=== PATIENT | female | born 1950 | race Caucasian/White ===

== ENCOUNTER 2016-04-08 06:51 | Inpatient (IN) | payer OTHER ==
--- NOTE | 2016-03-31 18:40 | HP ---
HISTORY AND PHYSICAL: DATE OF ADMISSION/SURGERY: 04/08/16 DATE OF OFFICE VISIT: 03/31/16 SURGEON: Myriam Munoz MD PROCEDURE: Left total knee arthroplasty. CHIEF COMPLAINT: Left knee pain. HISTORY OF PRESENT ILLNESS: Ms. Siegel is a 65-year-old female with complaints of left knee pain secondary to advanced osteoarthritis. She has failed conservative management and has elected to proceed with a left total knee arthroplasty, which is scheduled for 04/08/16. PAST MEDICAL HISTORY: Hypertension, asthma, osteoarthritis, and seasonal allergies. PAST SURGICAL HISTORY: Tonsillectomy. CURRENT MEDICATIONS: 1. Lunesta. 2. Singulair. 3. Chlorthalidone. 4. Advair Diskus. 5. Fish oil. 6. Magnesium. 7. Potassium. 8. Zypan. 9. Cataplex F. 10. Cardio-Plus. 11. Gotu qing. 12. Multizyme. 13. Cataplex B. ALLERGIES: To SOY BEANS, ERYTHROMYCIN, and FLUOROQUINOLONES. FAMILY HISTORY: Lung cancer, heart disease, Alzheimer's, alcoholism. SOCIAL HISTORY: She is a 65-year-old female. She lives with her sister. 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 She does not smoke; however, she quit smoking 25 years ago. She denies any drugs or alcohol. REVIEW OF SYSTEMS: A complete 14-point review of systems was reviewed with the patient and was all negative or noncontributory. PHYSICAL EXAMINATION GENERAL: She is well-developed, obese female. She is in no acute distress. VITAL SIGNS: She stands 5 feet 3 inches tall, weighs 195 pounds. Her blood pressure is 163/90, her heart rate is 73. HEENT: She is normocephalic, atraumatic. NECK: Supple. No palpable lymph nodes. Trachea is midline. PULMONARY: The lungs are clear to auscultation bilaterally. No wheezes, rhonchi, or rales. CARDIO: Regular rate and rhythm. Strong S1, S2. No murmurs, gallops, or rubs. No peripheral edema. ABDOMEN: Soft, nontender, nondistended. NEUROLOGICAL: She is alert and oriented x3. Cranial nerves II through XII are intact. MUSCULOSKELETAL: Left lower extremity: The skin is intact. She has a moderate effusion. Tenderness over the medial and lateral joint line. She walks with a slightly antalgic-type gait favoring her left leg. She has full range of motion, intact sensation. Her lower extremity muscle group strengths are intact at 5/5. She has 2+ dorsalis pedis pulses. ASSESSMENT AND PLAN: Ms. Siegel is a 65-year-old female who has failed conservative management. She has advanced osteoarthritis of her left knee and has elected to proceed with a left total knee arthroplasty. The surgery is scheduled for 04/08/[address] Munoz discussed the risks and benefits of the surgery at today's visit and all of her questions were answered. Coumadin, Colace, and Percocet were sent to her pharmacy for postoperative pain control and DVT prophylaxis. She will see Dr. Munoz back 10 to 14 days after the surgery. JORGE CORTES [id number]/[facility] #: [id number] [place]
[~2016-04-08 06:51] MED LIST: Buffered Lidocaine 1% SYRIN* 3 ML/SYR SYRINGE INTRADERM ONE; Dexamethasone IV* 4 MG/ML 1 ML (4 MG) IV SLOW PU ONE; Famotidine IV* 10 MG/ML 2 ML (20 mg) IV ONE
[2016-04-08] MEDS ORDERED: Lidocaine 2% EPI 1:200000 MPF* 20 ML VIAL ONE ×3 (07:18→14:57)
[2016-04-08 08:05] LABS: Hematocrit 46 % (35-47); Hemoglobin 15.5 g/dl (12.0-16.0); Mean Corpuscular HGB Conc 34 g/dl (31-36); Mean Corpuscular Hemoglobin 29 pg (27-31); Mean Corpuscular Volume 87 fL (80-97); Mean Platelet Volume 9 um3 (7.4-10.4); Red Blood Count 5.29 10^6/ul (4.0-5.4); Red Cell Distribution Width 14 % (10.5-15); White Blood Count 7.3 10^3/ul (3.5-10.8)
[2016-04-08] MEDS ORDERED: Bupivacaine 0.5% SDV PF* 30 ML VIAL ONE (09:09)
[2016-04-08] MEDS ORDERED: fentaNYL* 50 MCG/ML 2 ML VIAL (100 MCG VIAL) ONE (09:10)
[2016-04-08] MEDS ORDERED: Midazolam* 1 MG/ML 5 ML VIAL (5 MG) ONE (09:10)
[2016-04-08] MEDS ORDERED: Propofol* 500 MG/50 ML BTL ONE (09:11)
[2016-04-08] MEDS ORDERED: Lidocaine 2% PF * 5 ML VIAL ONE (09:11)
[2016-04-08] MEDS ORDERED: Morphine PF AMP (0.5MG/ML)* 5 MG/10 ML AMP ONE (09:12)
[2016-04-08] MEDS ORDERED: Midazolam* 1 MG/ML 2 ML VIAL (2 MG) ONE (10:11)
[2016-04-08] MEDS ORDERED: fentaNYL* 50 MCG/ML 2 ML VIAL (100 MCG VIAL) IV PRN (10:44)
[2016-04-08] MEDS ORDERED: oxyCODONE TAB* 5 MG TAB PO PRN ×2 (10:44→10:45)
[2016-04-08] MEDS ORDERED: Acetaminophen IV 1GM/100ML * 100 ML IVPB ONE (10:44)
[2016-04-08] MEDS ORDERED: PROCHLORPERAZINE INJ 5 MG/ML 2 ML VIAL IV PRN (10:44)
[2016-04-08] MEDS ORDERED: EPHEDrine (Pressors)* 50 MG/ML VIAL IV PUSH PRN (10:45)
[2016-04-08] MEDS ORDERED: Ondansetron INJ* 2 MG/ML VIAL IV PRN ×2 (10:45→11:36)
[2016-04-08] MEDS ORDERED: Naloxone* 0.4 MG/ML 1 ML VIAL IV PRN ×3 (10:45→10:53)
[2016-04-08] MEDS ORDERED: Lactated Ringers 500 ml BAG* 500 ML IV PRN (10:45)
[2016-04-08] MEDS ORDERED: Nalbuphine* 20 MG/ML 1 ML VIAL IV PRN (10:45)
[2016-04-08] MEDS ORDERED: Scopolamine 1.5 mg* PATCH TRANSDERM SCH (11:00)
[2016-04-08] MEDS ORDERED: Ropivacaine 0.2% EPIDURAL* 200 MG/100 ML BAG EPIDURAL SCH (11:00)
[2016-04-08] MEDS ORDERED: Ondansetron TAB* 4 MG PO PRN (11:36)
[2016-04-08] MEDS ORDERED: Polyethylene Glycol 3350* 17 GM PACKET PO PRN (11:36)
[2016-04-08] MEDS ORDERED: LACTULOSE* 30 ML UDC PO PRN (11:36)
[2016-04-08] MEDS ORDERED: Bisacodyl SUPP* 10 MG SUPP PR PRN (11:36)
[2016-04-08] MEDS ORDERED: diPHENhydraMINE IV* 50 MG/ML 1 ml VIAL (BENADRYL) IV PRN (11:36)
[2016-04-08] MEDS ORDERED: Albuterol HFA INHALER* 8 gm MDI INH PRN (11:41)
[2016-04-08] MEDS ORDERED: Zolpidem TAB* 10 MG PO PRN (11:41)
[2016-04-08] MEDS ORDERED: Ropivacaine 0.2% EPIDURAL* 200 MG/100 ML BAG EPIDURAL ONE (11:53)
[2016-04-08] MEDS ORDERED: Acetaminophen IV 1GM/100ML * 100 ML ONE (11:54)
[2016-04-08] MEDS ORDERED: Nalbuphine* 20 MG/ML 1 ML VIAL ONE (12:48)
[2016-04-08] MEDS ORDERED: Scopolamine 1.5 mg* PATCH ONE (12:52)
--- NOTE | 2016-04-08 12:57 | RAD ---
HISTORY: Status post left knee arthroplasty COMPARISONS: April 16, 2015 VIEWS: 2, Frontal and lateral views of the left knee FINDINGS: BONE DENSITY: Normal. BONES: The patient is status post left knee arthroplasty. There is no hardware failure or osteolysis. JOINTS: The patient is status post left knee arthroplasty ALIGNMENT: There is no dislocation. SOFT TISSUES: There is post surgical change to the soft tissues OTHER FINDINGS: None. IMPRESSION: STATUS POST LEFT KNEE ARTHROPLASTY
[2016-04-08] MEDS ORDERED: Ondansetron INJ* 2 MG/ML VIAL ONE (14:07)
[2016-04-08] MEDS ORDERED: celeCOXIB CAP* 100 MG ONE (15:37)
[2016-04-08] MEDS: ZYPAN PO SCH ×2 (16:07→17:08)
[2016-04-08] MEDS ORDERED: Warfarin TAB(*) 6 MG PO ONE (17:00)
[2016-04-08] MEDS ORDERED: Scopolamine 1.5 mg* PATCH TRANSDERM ONE (17:00)
[2016-04-08] MEDS: Montelukast Sodium TAB* 10 MG PO SCH (17:51)
[2016-04-08] MEDS: ceFAZolin 1 GM in Dextrose (*) 1 GM/50 ML BAG IVPB SCH (17:51)
[2016-04-08] MEDS: Acetaminophen TAB* 325 MG PO SCH (21:41)
[2016-04-08] MEDS: Magnesium Hydroxide LIQ* 30 ML UDC PO SCH (22:34)
[2016-04-08] MEDS: Mometasone/Formoter 200/5 MDI INH SCH (22:34)
[2016-04-08] MEDS: Docusate CAP* 100 MG PO SCH (22:34)
[2016-04-09] MEDS ORDERED: oxyCODONE/Acetamin 5/325 MG* TAB PO PRN (02:00)
[2016-04-09] MEDS: oxyCODONE/Acetamin 5/325 MG* TAB PO PRN ×5 (02:18→21:19)
[2016-04-09] MEDS: ceFAZolin 1 GM in Dextrose (*) 1 GM/50 ML BAG IVPB SCH ×2 (02:21→09:26)
--- NOTE | 2016-04-09 04:23 | OP ---
DATE OF OPERATION: 04/08/16 - ROOM #339 DATE OF : 54 SURGEON: Myriam Munoz MD SHUTTLE FIXER: JORGE Arboleda ANESTHESIOLOGIST: Dr. Henson. ANESTHESIA: Spinal epidural. PRE-OP DIAGNOSIS: Severe end-stage degenerative osteoarthritis of the left knee joint. POST-OP DIAGNOSIS: Severe end-stage degenerative osteoarthritis of the left knee joint. OPERATIVE PROCEDURE: Left total knee arthroplasty. INDICATIONS: Ms. Siegel is a 65-year-old female with years of increasingly severe left knee pain. She failed conservative treatment with the anti- inflammatories, pain medications, physical therapy, brace wear, and intra- articular injections. Her radiographs confirmed [id number] arthritis. Due to decreased quality of life and continued pain, the patient elected to undergo left total knee arthroplasty. Informed consent was obtained from the patient. She understood the risks of the procedure included, but were not limited to, bleeding, infection, damage to nearby structures, continued pain, need for further surgery, intraoperative fracture, nerve palsy, hardware failure or loosening, stroke, heart attack, blood clot, and . She wished to proceed. TOURNIQUET TIME: 55 minutes. EBL: 200 cc. COMPLICATIONS: None. SPECIMEN: Bone and cartilage from the left knee joint sent to Pathology. HARDWARE USED: This is Devlin [employer] Nephew cemented total knee arthroplasty hardware with 2 packages of Simplex bone cement. For the femur, a size 3 left Oxinium femoral component. For the tibia, size 2 left tibial baseplate. For the insert, a 13-mm posterior stabilized articular insert and for the patella, a 32-mm All-Poly patella. INTRAOPERATIVE FINDINGS: Intraoperatively, the patient was noted to have complete loss of cartilage in the medial and patellofemoral compartments with severe osteophyte formation. DESCRIPTION OF PROCEDURE: Ms. Siegel was identified in the preanesthesia unit. Her left lower extremity was marked as the correct operative side. Informed consent was signed and placed in the chart. The patient was taken to the operating room and placed under spinal epidural anesthesia. Tourniquet was placed on the left thigh. A Quick catheter was placed. The left lower extremity was prepped and draped in the usual sterile fashion. Preop time-out was made to correctly identify the patient's side and site. Appropriate perioperative antibiotics were given within 1 hour of incision. Tourniquet was inflated and a total tourniquet time for this procedure was 55 minutes. A 12-cm midline incision was made with a 10-blade and carried down through the subcutaneous fat to the extensor mechanism. A new 10-blade was used to make a standard medial parapatellar arthrotomy. The patella was subluxed laterally. Electrocautery was used to subperiosteally elevate the soft tissue off the superomedial tibia to the mid sagittal plane. The knee was flexed up. A drill was used to enter the distal femur. Intramedullary distal femoral cutting guide was pinned into proper position. A 9- mm of distal femoral bone was carefully removed with an oscillating saw. The external rotation guide was placed on the distal femur. Distal femur was sized to a size 3. A size 3 multi-cutting jig was then pinned into position on the distal femur. The oscillating saw was used to make the appropriate chamfer cuts. All bony fragments were carefully removed. The PCL was completely released. The tibia was subluxed anteriorly. Extramedullary tibial cutting guide was pinned on to proximal tibia. Oscillating saw was used to make the proximal tibial cut perpendicular to the mechanical axis of the tibia. The tibial bone was carefully removed. The knee was brought out into full extension. Spacer block had excellent fit with good medial and lateral ligamentous balancing. Flexion and extension gaps were well balanced. The knee was flexed up. Lamina gas station operator was placed both medially and laterally. Any remaining meniscus was carefully removed using electrocautery both medially and laterally. Any posterior osteophytes were removed using a curved osteotome. A size 3 left femoral trial was impacted on to the distal femur. This had excellent fit. The box for the posterior stabilized implant was prepared using a reamer and box cut osteotome. A size 2 tibial tray trial and 11-mm insert trial was chosen. The knee was taken through a range of motion and noted to have full extension to 130 degrees of flexion with good patellofemoral tracking. The patella was everted. There was extensive osteophyte formation along the patella. 9 mm of patellar bone and cartilage was carefully removed using an oscillating saw. The patella was sized to a size 32. Three peg holes were drilled through the size 32 guide. A trial 32 patella was placed and the knee was taken through range of motion. There was good patellofemoral tracking. All trials were carefully removed. The tibia was subluxed anteriorly and sized to a size 2. Proximal tibia was prepared using a keel punch. All bony cut surfaces were copiously irrigated with sterile saline and dried. The final implants were cemented into place starting with the tibia, followed by the femur , and lastly the patella. A 13-mm insert trial was placed while the knee was brought out into full extension. Tourniquet was deflated. Cement was allowed to fully cure. The knee was copiously irrigated with sterile saline. Once the cement was fully cured, the insert trial was removed. An electrocautery was used to obtain meticulous hemostasis. Any excess cement was carefully removed. Final insert chosen was a 13-mm posterior stabilized articular insert. This was locked into position on the tibial tray. Stability of the insert was checked and rechecked and noted to be stable. The knee was copiously irrigated with sterile saline. The extensor mechanism was closed using interrupted #1 Vicryls. The rest of the incision was closed in a layered fashion using 0 and 2-0 Vicryl's. Skin was closed using running 3- 0 nylon suture. Sterile Xeroform, 4x4's, and Webril were used to cover the incision. Rob wrap and cold pack were placed over this. The patient's anesthesia was reversed without difficulty. She was taken to the PACU in stable condition. Intended weightbearing will be weightbearing as tolerated. Intended DVT prophylaxis will be Coumadin with a Lovenox bridge. [id number]/[facility] #: [id number] [place]
[2016-04-09] MEDS: Acetaminophen TAB* 325 MG PO SCH ×2 (04:53→13:55)
[2016-04-09] MEDS ORDERED: NS 0.9% 1000 ML* 1,000 ML IV ONE (06:45)
[2016-04-09 07:12] LABS: Hematocrit 36 % (35-47); Hemoglobin 12.1 g/dl (12.0-16.0)
[2016-04-09 07:30] LABS: BUN/Creatinine Ratio 12.5 (8-20); Calcium 8.5 mg/dL (8.6-10.3); EGFR African American 120.5 (>60); EGFR Non-African American 93.7 (>60); Potassium 2.9 mmol/L (3.5-5.0)
[2016-04-09] MEDS: ZYPAN PO SCH ×3 (08:00→16:32)
[2016-04-09] MEDS ORDERED: Potassium Chlor TAB* 20 MEQ TAB.ER PO SCH (09:00)
[2016-04-09] MEDS ORDERED: Spiriva Inhaler DEVICE* 1 EACH DEVICE INH ONE (09:00)
[2016-04-09] MEDS: Mometasone/Formoter 200/5 MDI INH SCH ×2 (09:15→21:19)
[2016-04-09] MEDS: Vitamin THERAPEUTIC TAB PO SCH (09:16)
[2016-04-09] MEDS: Docusate CAP* 100 MG PO SCH ×2 (09:16→21:19)
[2016-04-09] MEDS: Magnesium Hydroxide LIQ* 30 ML UDC PO SCH ×2 (09:17→21:19)
[2016-04-09] MEDS: Chlorthalidone TAB* 50 MG PO SCH (09:17)
[2016-04-09] MEDS: Tiotropium CAP.INH* CAP.INH/18 MCG INH SCH (09:19)
[2016-04-09] MEDS: POTASSIUM 99 MG PO SCH (09:20)
[2016-04-09] MEDS: Morphine INJ* 4 MG/ML 1 ML SYRINGE IV PRN ×2 (09:26→15:08)
[2016-04-09] MEDS: KCL 10 MEQ/50 ML IVPREMIX* 10 MEQ/50 ML BAG IV SCH ×2 (10:28→12:57)
--- NOTE | 2016-04-09 11:35 | PN ---
Progress Note - Progress Note SOAP: Subjective: [65 year old female s/p L TKA 04/08/2016. Patient with nausea/ vomiting this AM and last PM after eating food. Denies Nausea at baseline, but after eating within a few minutes will vomit. VSS overnight, H&H ] stable. hypokalemia on BMP Objective: [General- Sitting comfortably in chair, complaints of burning around incision MSK- Surgical dressing intact, no drainage noted, minimal edema b/l LE's, PT 2+ , neg homans b/l, sensation grossly intact LE's ] Vital Signs Temp 97.6 F 04/09/16 11:52 Pulse 69 04/09/16 11:52 Resp 18 04/09/16 11:52 BP 116/53 04/09/16 11:52 Pulse Ox 100 04/09/16 11:52 Intake & Output 04/08/16 04/09/16 04/09/16 18:59 06:59 18:59 Intake Total 3150 2092 120 Output Total 580 700 550 Balance 2570 1392 -430 Weight 197 lb Intake: IV Fluids 2950 1252 LR 2900 1252 NS 50ML, Cefazolin 2G 50 IVPB 110 ABX - CEFAZOLIN 110 Oral 200 730 120 Output: Urine 0 Quick 300 400 150 Residual 30 Quick 16 Fr 30 Emesis 300 400 Estimated Blood Loss 250 Other: # Bowel Movements 0 Laboratory Results - last 24 hr 04/09/16 04/09/16 04/09/16 06:56 06:56 06:56 Hgb 12.1 Hct 36 INR (Anticoag Therapy) 1.06 Sodium 135 Potassium 2.9 L Chloride 99 L Carbon Dioxide 28 Anion Gap 8 BUN 8 Creatinine 0.64 Est GFR ( Amer) 120.5 Est GFR (Non-Af Amer) 93.7 BUN/Creatinine Ratio 12.5 Glucose 116 H Calcium 8.5 L Assessment: [65 year old female s/p L TKA 04/08/2016] Plan: [- Hypokalemia- patient wishes to take home K medication, brought into pharmacy. IV K+ until med cleared, repeat BMP tomorrow. - Insomnia[facility] discussed ambien to help with sleep, nausea. patient will think about. - DVT pro- lovenox, coumadin dosed to 6mg tonight - PT/ OT today. - Active Medications Generic Name Dose Route Start Last Admin Trade Name Freq PRN Reason Stop Dose Admin Acetaminophen 975 mg 04/08/16 20:45 04/09/16 04:53 Tylenol Tab* PO 04/09/16 20:44 Not Given Q8H PETTY Acetaminophen 650 mg 04/09/16 20:45 Tylenol Tab* PO Q4H PRN pain, fever Albuterol 1 puff 04/08/16 11:41 Ventolin Hfa Inhaler* INH Q4H PRN SOB/WHEEZING Bisacodyl 10 mg 04/08/16 11:36 Dulcolax Supp* [place] DAILY PRN constipation Chlorthalidone 25 mg 04/09/16 09:00 04/09/16 09:17 [place] Tab* PO 25 mg QAM PETTY Administration Diphenhydramine HCl 12.5 mg 04/08/16 11:36 04/09/16 02:28 Benadryl Iv* IV 12.5 mg Q6H PRN Administration PRURITIS Docusate Sodium 100 mg 04/08/16 21:00 04/09/16 09:16 Colace Cap* PO 100 mg BID PETTY Administration Enoxaparin Sodium 40 mg 04/09/16 12:00 04/09/16 11:54 Lovenox(*) SUBCUT 40 mg Q24H PETTY Administration Lactated Ringer's 1,000 mls @ 100 mls/hr 04/08/16 12:00 04/09/16 02:22 Lactated Ringers 1000 Ml Bag* IV 100 mls/hr PER RATE PETTY Administration Potassium Chloride 10 meq in 50 mls @ 50 mls/hr 04/09/16 10:00 04/09/16 10:28 Potassium Chloride 10 Meq/50 Ml Ivpremix* IV 04/09/16 12:59 50 mls/hr Q2H PETTY Administration Lactulose 30 ml 04/08/16 11:36 Lactulose* PO Q6H PRN constipation Magnesium Hydroxide 30 ml 04/08/16 21:00 04/09/16 09:17 Milk Of Magnesia Liq* PO 30 ml BID PETTY Administration Mometasone Furoate/Formoterol Fumar 2 puff 04/08/16 21:00 04/09/16 09:15 Dulera 200/5 Mdi* INH 2 puff BID PETTY Administration Montelukast Sodium 10 mg 04/08/16 18:00 04/08/16 17:51 Singulair Tab* PO 10 mg QPM PETTY Administration Morphine Sulfate 4 mg 04/09/16 02:00 04/09/16 09:26 Morphine Inj (Syringe)* IV 4 mg Q2H PRN Administration PAIN Multivitamins 1 tab 04/09/16 09:00 04/09/16 09:16 Theragran Tab* PO 1 tab DAILY PETTY Administration Pto:Potassium [ 99 mg 04/09/16 09:00 04/09/16 09:20 Potassium] 99 Mg PO 99 mg DAILY PETTY Administration Zypan 1 tab 04/08/16 12:00 04/09/16 11:54 PO Not Given TID WITH MEALS PETTY Ondansetron HCl 4 mg 04/08/16 11:36 04/08/16 19:49 Zofran Inj* IV 4 mg Q6H PRN Administration nausea Ondansetron HCl 4 mg 04/08/16 11:36 04/09/16 11:54 Zofran Tab* PO 4 mg Q6H PRN Administration NAUSEA Oxycodone/Acetaminophen 1 tab 04/09/16 02:00 Percocet 5/325 Tab* PO Q4H PRN PAIN - MILD Oxycodone/Acetaminophen 2 tab 04/09/16 02:00 04/09/16 06:37 Percocet 5/325 Tab* PO 2 tab Q4H PRN Administration PAIN - MODERATE Pharmacy Profile Note 1 note 04/11/16 10:49 Scopolomine Patch Remove* PATCH OFF 04/11/16 10:50 .AFTER 72 HOURS ONE Polyethylene Glycol/Electrolytes 17 gm 04/08/16 11:36 Miralax* PO DAILY PRN Constipation Tiotropium [place] 1 cap 04/09/16 09:00 04/09/16 09:19 Spiriva Cap.Inh* INH 1 puff DAILY PETTY Administration Warfarin Sodium 6 mg 04/09/16 17:00 Coumadin Tab(*) PO 04/09/16 17:01 ONCE@1700 [facility] Protocol Zolpidem Tartrate 10 mg 04/08/16 11:41 Ambien Tab* PO BEDTIME PRN INSOMNIA Protocol
[2016-04-09] MEDS: Enoxaparin(*) 40 MG/0.4 ML SYR SUBCUT SCH (11:54)
[2016-04-09] MEDS: LORazepam TAB(*) 1 MG PO PRN (15:39)
[2016-04-09] MEDS ORDERED: Warfarin TAB(*) 6 MG PO SCH (17:00)
[2016-04-09] MEDS: Montelukast Sodium TAB* 10 MG PO SCH (18:07)
[2016-04-09] MEDS ORDERED: Acetaminophen TAB* 325 MG PO PRN (20:45)
[2016-04-09] MEDS ORDERED: ESZOPICLONE 3 MG PO PRN (21:00)
[2016-04-10] MEDS: oxyCODONE/Acetamin 5/325 MG* TAB PO PRN ×5 (01:14→21:40)
[2016-04-10] MEDS: LORazepam TAB(*) 1 MG PO PRN (02:24)
[2016-04-10] MEDS: ZYPAN PO SCH ×2 (07:32→11:26)
[2016-04-10 07:54] LABS: Hematocrit 33 % (35-47); Hemoglobin 11.2 g/dl (12.0-16.0)
[2016-04-10 08:04] LABS: BUN/Creatinine Ratio 14.3 (8-20); Calcium 8.3 mg/dL (8.6-10.3); EGFR Non-African American 127.6 (>60)
--- NOTE | 2016-04-10 08:08 | PN ---
Progress Note - Progress Note SOAP: Subjective: [65 y/o female s/p L TKA 04/08/2016. Patient nausea/ vomiting improved from yesterday with addition of ativan, however increased drowsiness and fatigue today. Patient A&O, able to collect thoughts. Working well with PT yesterday , pain under control. ] Objective: [General: sleepy, alert when roused however falls asleep when not engaged. MSK- Surgical incision C/D/I, sutures intact, mild ecchymosis around incision. + dorsi/ plantarflexion, PT 2+ b/l, neg homans sign. ] Laboratory Results - last 24 hr 04/10/16 07:43 Hgb 11.2 L Hct 33 L Vital Signs Temp 98.1 F 04/10/16 04:05 Pulse 71 04/10/16 04:05 Resp 16 04/10/16 07:33 BP 111/47 04/10/16 04:05 Pulse Ox 96 04/10/16 04:05 Intake & Output 04/09/16 04/10/16 04/10/16 18:59 06:59 18:59 Intake Total 1388 1436 Output Total 900 550 Balance 488 886 Intake: IV Fluids 788 986 LR 688 986 potassium 100 Oral 600 450 Output: Urine 550 Quick 200 Emesis 700 Assessment: [65 y/o female s/p L TKA 04/08/2016. ] Plan: [- Hypokalemia- IV supplementation and restarted on Home K supplementation, no improvement, hospitalist consult - Hyponatermia- Likely related to increased IVF, D/C IVF, hospitalist consult - DVT Prophylaxis- continue lovenox, Coumadin 4mg tonight - Continue PT/ OT - ] Active Medications Generic Name Dose Route Start Last Admin Trade Name Freq PRN Reason Stop Dose Admin Acetaminophen 650 mg 04/09/16 20:45 Tylenol Tab* PO Q4H PRN pain, fever Albuterol 1 puff 04/08/16 11:41 Ventolin Hfa Inhaler* INH Q4H PRN SOB/WHEEZING Bisacodyl 10 mg 04/08/16 11:36 Dulcolax Supp* [place] DAILY PRN constipation Chlorthalidone 25 mg 04/09/16 09:00 04/09/16 09:17 [place] Tab* PO 25 mg QAM PETTY Administration Diphenhydramine HCl 12.5 mg 04/08/16 11:36 04/09/16 02:28 Benadryl Iv* IV 12.5 mg Q6H PRN Administration PRURITIS Docusate Sodium 100 mg 04/08/16 21:00 04/09/16 21:19 Colace Cap* PO 100 mg BID PETTY Administration Enoxaparin Sodium 40 mg 04/09/16 12:00 04/09/16 11:54 Lovenox(*) SUBCUT 40 mg Q24H PETTY Administration Eszopiclone 3 mg 04/09/16 21:00 Lunesta (Nf) PO BEDTIME PRN INSOMNIA Protocol Lactated Ringer's 1,000 mls @ 100 mls/hr 04/08/16 12:00 04/10/16 04:00 Lactated Ringers 1000 Ml Bag* IV 100 mls/hr PER RATE PETTY Administration Lactulose 30 ml 04/08/16 11:36 Lactulose* PO Q6H PRN constipation Lorazepam 1 mg 04/09/16 15:33 04/10/16 02:24 Ativan Tab(*) PO 1 mg Q6H PRN Administration NAUSEA Magnesium Hydroxide 30 ml 04/08/16 21:00 04/09/16 21:19 Milk Of Magnesia Liq* PO 30 ml BID PETTY Administration Mometasone Furoate/Formoterol Fumar 2 puff 04/08/16 21:00 04/09/16 21:19 Dulera 200/5 Mdi* INH 2 puff BID PETTY Administration Montelukast Sodium 10 mg 04/08/16 18:00 04/09/16 18:07 Singulair Tab* PO 10 mg QPM PETTY Administration Morphine Sulfate 4 mg 04/09/16 02:00 04/09/16 15:08 Morphine Inj (Syringe)* IV 4 mg Q2H PRN Administration PAIN Multivitamins 1 tab 04/09/16 09:00 04/09/16 09:16 Theragran Tab* PO 1 tab DAILY PETTY Administration Pto:Potassium [ 99 mg 04/09/16 09:00 04/09/16 09:20 Potassium] 99 Mg PO 99 mg DAILY PETTY Administration Zypan 1 tab 04/08/16 12:00 04/10/16 07:32 PO Not Given TID WITH MEALS PETTY Ondansetron HCl 4 mg 04/08/16 11:36 04/08/16 19:49 Zofran Inj* IV 4 mg Q6H PRN Administration nausea Ondansetron HCl 4 mg 04/08/16 11:36 04/09/16 11:54 Zofran Tab* PO 4 mg Q6H PRN Administration NAUSEA Oxycodone/Acetaminophen 1 tab 04/09/16 02:00 Percocet 5/325 Tab* PO Q4H PRN PAIN - MILD Oxycodone/Acetaminophen 2 tab 04/09/16 02:00 04/10/16 07:33 Percocet 5/325 Tab* PO 2 tab Q4H PRN Administration PAIN - MODERATE Pharmacy Profile Note 1 note 04/11/16 10:49 Scopolomine Patch Remove* PATCH OFF 04/11/16 10:50 .AFTER 72 HOURS ONE Polyethylene Glycol/Electrolytes 17 gm 04/08/16 11:36 Miralax* PO DAILY PRN Constipation Tiotropium [place] 1 cap 04/09/16 09:00 04/09/16 09:19 Spiriva Cap.Inh* INH 1 puff DAILY PETTY Administration
[2016-04-10] MEDS: Mometasone/Formoter 200/5 MDI INH SCH ×2 (08:43→21:39)
[2016-04-10] MEDS: Tiotropium CAP.INH* CAP.INH/18 MCG INH SCH (08:49)
[2016-04-10] MEDS: Vitamin THERAPEUTIC TAB PO SCH (08:50)
[2016-04-10] MEDS: POTASSIUM 99 MG PO SCH (08:50)
[2016-04-10] MEDS: Magnesium Hydroxide LIQ* 30 ML UDC PO SCH (08:50)
[2016-04-10] MEDS: Docusate CAP* 100 MG PO SCH ×2 (08:50→20:50)
[2016-04-10] MEDS: Chlorthalidone TAB* 50 MG PO SCH (08:50)
[2016-04-10 09:12] LABS: Potassium 2.7 mmol/L (3.5-5.0)
[2016-04-10] MEDS ORDERED: LORazepam TAB(*) 1 MG PO PRN (09:34)
[2016-04-10] MEDS: KCL 20 MEQ/100 ML IVPREMIX* 20 MEQ/100 ML BAG IV SCH ×3 (10:05→15:56)
[2016-04-10 10:58] LABS: Magnesium 2.1 mg/dL (1.9-2.7)
[2016-04-10] MEDS: Enoxaparin(*) 40 MG/0.4 ML SYR SUBCUT SCH (12:33)
[2016-04-10] MEDS ORDERED: PROCHLORPERAZINE INJ 5 MG/ML 2 ML VIAL IV PRN (14:06)
[2016-04-10] MEDS ORDERED: PROCHLORPERAZINE INJ 5 MG/ML 2 ML VIAL ONE (14:09)
--- NOTE | 2016-04-10 14:40 | CONSULT ---
Consult Consult: Brief Hospitalist Consult Reason for Consultation: hypokalemia Requesting Provider: JORGE Goldman The hospitalist service was asked to see Ms Siegel for worsening hypokalemia. Ms Siegel is s/p L TKR on 04/08/15. Post-operatively she developed significant nausea and vomiting. Post-op labs yesterday revealed a potassium of 2.9. She received 20mEq of IV KCl and was restarted on her home dose of elemental potassium 99mg daily. The elemental potassium only contains 2.5mEq of potassium. I suspect much of the hypokalemia is secondary to GI losses though she was also continued on her usual dose chlorthalidone which also can lead to hypokalemia. We do not have a pre-op K level to compare to. I have stopped her chlorthalidone an elemental K. Will give KCl 60mEq IV now and recheck electrolyte panel tonight at 1999. She will likely need additional supplementation but will hold off until the repeat lab is back. The patient is also newly hyponatremic. Her Na level was in good range yesterday but now is low. I suspect this is likely SIADH. I have stopped the LR (also has more free water than NS). Will be getting follow up Na level tonight. If worse will send off urine studies. I will follow up tomorrow for management of her electrolyte abnormalities.
[2016-04-10] MEDS ORDERED: Warfarin TAB(*) 4 MG PO ONE (17:00)
[2016-04-10] MEDS: Montelukast Sodium TAB* 10 MG PO SCH (17:52)
[2016-04-10 20:39] LABS: Potassium 3.3 mmol/L (3.5-5.0)
[2016-04-10] MEDS ORDERED: Magnesium Hydroxide LIQ* 30 ML UDC PO PRN (20:52)
[2016-04-11] MEDS: oxyCODONE/Acetamin 5/325 MG* TAB PO PRN ×2 (04:30→08:26)
[2016-04-11] MEDS ORDERED: Potassium Chlor TAB* 20 MEQ TAB.ER PO ONE (06:58)
[2016-04-11 08:15] LABS: Hematocrit 36 % (35-47)
[2016-04-11 08:25] LABS: BUN/Creatinine Ratio 12.2 (8-20); Calcium 8.7 mg/dL (8.6-10.3); EGFR Non-African American 127.6 (>60); Potassium 3.2 mmol/L (3.5-5.0)
[2016-04-11] MEDS: Tiotropium CAP.INH* CAP.INH/18 MCG INH SCH (08:25)
[2016-04-11] MEDS: Mometasone/Formoter 200/5 MDI INH SCH (08:25)
[2016-04-11] MEDS: Vitamin THERAPEUTIC TAB PO SCH (08:26)
[2016-04-11] MEDS: Docusate CAP* 100 MG PO SCH (08:27)
--- NOTE | 2016-04-11 09:49 | PN ---
Progress Note - Progress Note SOAP: Subjective: [65 y/o female s/p L TKA 04/08/[address] Munoz. Patient much improved today, eager for D/C. Denies N/v. ] Objective: [General- Well appearing, NAD AO MSK- Incision with mild erythema around proximal incision, no drainage, mild tender to palpation, sutures intact, minimal ecchymosis surrounding wound. Moderate swelling. PT 2+ b/l, neg homans b/l, neg homans. ] Vital Signs Temp 98.0 F 04/11/16 07:33 Pulse 72 04/11/16 07:33 Resp 18 04/11/16 08:26 BP 121/54 04/11/16 07:33 Pulse Ox 99 04/11/16 08:00 Intake & Output 04/10/16 04/11/16 04/11/16 18:59 06:59 18:59 Intake Total 1413 3811 Output Total 2550 3450 500 Balance -1137 361 -500 Intake: IV Fluids 768 LR 484 NS 284 IVPB 205 311 NS 201 potassium 205 110 Oral 440 3500 Output: Urine 2550 3450 500 Other: Estimated Stool Amount Small Medium Laboratory Results - last 24 hr 04/10/16 04/10/16 04/11/16 07:43 20:15 07:37 Hgb 12.0 Hct 36 INR (Anticoag Therapy) Sodium 128 L Potassium 3.3 L Chloride 94 L Carbon Dioxide 31 Anion Gap 3 BUN Creatinine Est GFR ( Amer) Est GFR (Non-Af Amer) BUN/Creatinine Ratio Glucose Calcium Magnesium 2.1 04/11/16 04/11/16 07:37 07:37 Hgb Hct INR (Anticoag Therapy) 1.66 H Sodium 134 Potassium 3.2 L Chloride 97 L Carbon Dioxide 30 Anion Gap 7 BUN 6 Creatinine 0.49 L Est GFR ( Amer) 164.0 Est GFR (Non-Af Amer) 127.6 BUN/Creatinine Ratio 12.2 Glucose 100 Calcium 8.7 Magnesium Assessment: [65 y/o female s/p L TKA 04/08/2016] Plan: [- DVT prophyl- coumadin, continue lovenox today - Follow up with Dr. Munoz within 10-12 days - Hyponatermia, hypokalemia- resolved, D/C diuretic at home, follow up with PCP within 1-2 weeks for recheck BMP, HTN monitoring. Continue MVI at home. - Continue PT/ OT ]
[2016-04-11] MEDS ORDERED: Scopolomine PATCH Remove* 1 NOTE MISC PATCH OFF ONE (10:49)
[2016-04-11] MEDS: Enoxaparin(*) 40 MG/0.4 ML SYR SUBCUT SCH (11:10)
[2016-04-11 12:21] VITALS: BP 118/52
--- NOTE | 2016-04-12 02:22 | DS ---
DISCHARGE SUMMARY: DATE OF ADMISSION: 04/08/16 DATE OF DISCHARGE: 04/11/16 CHIEF COMPLAINT: 1. Left knee end-stage osteoarthritis. 2. Hypertension. 3. Asthma. 4. Generalized osteoarthritis. 5. Seasonal allergies. DISCHARGE DIAGNOSES: 1. Status post left total knee arthroplasty. 2. Hypertension. 3. Asthma. 4. Generalized osteoarthritis. 5. Seasonal allergies. 6. Hyponatremia. 7. Hypokalemia, resolved. PROCEDURE: Left total knee arthroplasty. CONSULTATIONS: 1. Physical Therapy. 2. Occupational Therapy. 3. Medicine. BRIEF HISTORY: Ms. Siegel is a very pleasant 65-year-old female with severe end - stage degenerative osteoarthritis of the left knee, who failed conservative treatment and elected to undergo a left total knee arthroplasty on 04/08/[address] Myriam Munoz. HOSPITAL COURSE: Ms. Siegel was admitted to [facility] on 04/08/16 where she underwent a left total knee arthroplasty, which was uncomplicated and she received a spinal epidural. However, did not have complete pain relief with this and did require IV morphine postoperatively. She recovered on the surgical short stay unit on postoperative day #2. Her Quick was removed and she was voiding while on her own without difficulty. She had multiple episodes of emesis and required scopolamine patch, Zofran, and Ativan to control her nausea, vomiting. On postoperative day 2, she was noted to have abnormal lab values with hyponatremia and hypokalemia. Hospital Medicine consult was called and after IV potassium, her levels normalized with a sodium of 134, potassium of 3.2. Her DVT prophylaxis was managed with Lovenox and Coumadin and until she reached a therapeutic INR. Her home medications were restarted; however, her chlorthalidone was held due to her hypokalemia. By postoperative day #3, she was orthopedically and medically stable to go home with home services. PHYSICAL EXAMINATION: General: The patient is alert and oriented, in no acute distress. Vital Signs: Temperature of 98.0, pulse 72, respirations 18, blood pressure 121/54, pulse oxygenation 99% on room air. Left lower extremity incision with a mild erythema around the proximal incision. No drainage, mildly tender to palpation. Sutures intact. Minimal ecchymoses surrounding the incision sites. Moderate swelling throughout the left knee extending into the ankle. Posterior tibial pulses 2+ bilaterally. Negative Homans' sign bilaterally. Sensation to light touch intact. Positive dorsiflexion and plantar flexion. LABORATORY DATA: On date of discharge, hemoglobin and hematocrit 12.0 and 36, INR of 1.66, and sodium and potassium levels of 134 and 3.2. DISCHARGE MEDICATIONS: 1. Albuterol sulfate 108 mcg 1 puff q.4 hours p.r.n. 2. Colace 100 mg p.o. b.i.d. 3. Lunesta 3 mg tablets p.o. q.h.s. p.r.n. 4. Advair Diskus 250/50 one puff b.i.d. 5. Singulair 10 mg tablets p.o. q.p.m. 6. Spiriva 1 inhalation daily. 7. Cardio-Plus supplementation 2 tablets p.o. t.i.d. with meals. 8. Cataplex B 1 tablet p.o. t.i.d. with meals. 9. Cataplex Complex 1 tablet p.o. t.i.d. 10. Gotu Sorin complex 1 tablet p.o. t.i.d. with meals. 11. Milk of magnesium 2 tablets p.o. daily. 12. Multizyme 1 tablet p.o. t.i.d. with meals. 13. Fish oil 1200 mg p.o. daily. 14. Potassium 99 mg 1 tablet p.o. daily. 15. Coumadin 2 mg tablets 1 to 3 tablets daily at 5:00 p.m. as directed by physician. 16. Zypan 1 tablet p.o. t.i.d. with meals. 17. Percocet 1 to 2 tablets q.4 hours p.o. p.r.n. CONDITION ON DISCHARGE: Stable. DISCHARGE INSTRUCTIONS: Ms. Siegel is very pleasant 65-year-old female, postoperative day #3 status post left total knee arthroplasty which was uncomplicated. She is orthopedically and medically stable to go home with home services. Her labs and vital signs are stable. She will restart her home medications; however, will continue to hold her chlorthalidone as her blood pressure has remained stable postoperatively and she has had episodes of hypokalemia. She will follow up with her primary care physician in approximately 1 to 2 weeks for repeat blood pressure check and repeat BMP. She will remain weightbearing as tolerated on the left lower extremity. She will have home physical therapy 1 to 2 times a week. She will take Percocet as needed for pain control. She will take Colace up to 3 times a day for constipation. She will follow up with Dr. Munoz in approximately 10 to 14 days for incision check and suture removal. She is instructed to go immediately to the ER if she develops chest pain or shortness of breath. If she develops fever , increasing pain, or redness around the incision, she is to call the office immediately. JORGE BAGLEY [id number]/[facility] #: [id number] [place]
== END 2016-04-11 12:00 | disposition home health service (06) | DRG 302 ==
LOC: AA 06:51 → SSU 15:57
PROVIDERS: ADMIT Orthopaedic Surgery Adult Reconstructive Orthopaedic Surgery; ATTEND Orthopaedic Surgery Adult Reconstructive Orthopaedic Surgery
PROC: 0SRD0J9 Replacement of Left Knee Joint with Synthetic Substitute, Cemented, Open Approach (ICD-10-PCS; principal; 2016-04-08 09:30)
DX: M17.12 Unilateral primary osteoarthritis, left knee (principal); E87.1 Hypo-osmolality and hyponatremia; I10 Essential (primary) hypertension; J45.909 Unspecified asthma, uncomplicated; E87.6 Hypokalemia; R11.2 Nausea with vomiting, unspecified; Z88.1 Allergy status to other antibiotic agents; Z88.8 Allergy status to other drugs, medicaments and biological substances; Z91.018 Allergy to other foods; Z87.891 Personal history of nicotine dependence; E66.9 Obesity, unspecified; G47.00 Insomnia, unspecified; M25.762 Osteophyte, left knee; K21.9 Gastro-esophageal reflux disease without esophagitis; M81.0 Age-related osteoporosis without current pathological fracture; Z68.37 Body mass index [BMI] 37.0-37.9, adult
CPT/HCPCS: 36415; 62327; 80048; 80051; 83735; 85014; 85018; 85025; 85610; 85730; 88305; 88311; 94760; A9270-GY; C1776; J0690; J0780; J1200; J1650; J2250; J2270; J2300; J2405; J2704; J2795; J3010; J3480

== ENCOUNTER 2016-07-13 06:08 | Day surgery (SDC) | payer OTHER ==
--- NOTE | 2016-07-06 09:44 | HP ---
DATE OF ADMISSION/SURGERY: 07/13/16 DATE OF OFFICE VISIT: 07/05/16 ATTENDING SURGEON: Myriam Munoz MD (dictated by JORGE Yusuf) PROCEDURE: Left total knee replacement manipulation under anesthesia. CHIEF COMPLAINT: Left knee stiffness. HISTORY OF PRESENT ILLNESS: Ms. Siegel is a 55-year-old female with a complaint of left knee stiffn ess following total knee replacement on 04/08/16. She has attempted physical therapy which has been helpful somewhat, but she's had persistent stiffness. She has done well otherwise with minimal merry n. She has failed conservative management with physical therapy, and has elected to proceed with a left total knee replacement manipulation under anesthesia on 07/13/16. PAST MEDICAL HISTORY: 1. Hypertension. 2. Asthma. 3. Osteoarthritis. 4. Seasonal allergies. PAST SURGICAL HISTORY: 1. Tonsillectomy. 2. Left total knee arthroplasty. CURRENT MEDICATIONS: 1. Lunesta. 2. Singulair. 3. Chlorthalidone. 4. Advair Diskus. 5. Fish oil. 6. Magnesium. 7. Potassium. 8. Zypan. 9. Cardio-Plus. 10. cola. 11. Cataplex B. ALLERGIES: 1. SOYBEANS. 2. ERYTHROMYCIN. 3. FLUOROQUINOLONES. FAMILY HISTORY: Lung cancer, heart disease, Alzheimer's and alcoholism. SOCIAL HISTORY: She is a 66-year-old female. She lives with her sister. 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 She does not smoke. However, she quit smoking 25 years ago. She denies any drugs or al cohol. REVIEW OF SYSTEMS: A complete 14-point review of systems was reviewed with the patient, and was all negative or non-contributory. PHYSICAL EXAMINATION GENERAL: She is a well-developed obese female. She's in no acute distress. VITAL SIGNS: She is 5 feet 2 inches tall, weighs 185 lbs. Blood pressure today is 138/78, heart ra te 64. HEENT: Normocephalic, atraumatic. NECK: Supple. No palpable lymph nodes. Trachea midline. PULMONARY: Lungs are clear to auscultation bilaterally. No wheezes, rhonchi or rales. CARDIO: Regular rate and rhythm. Strong S1, S2. No murmurs, rubs, or gallops. No peripheral edema . ABDOMEN: Soft, nontender, non-distended. NEUROLOGICAL: She's alert and oriented x3. Cranial nerves II through XII are intact. MUSCULOSKELETAL: Left lower extremity - skin is intact. Her incision is well healed. No effusion, no tenderness over the knee. She has range of motion from 0 to 90 degrees of the left knee. Intac t sensation. Her lower extremity muscle group strengths are intact 5/5. She has 2+ dorsalis pedis pulses. ASSESSMENT AND PLAN: Ms. Siegel is a 56-year-old female who has a stiff left knee following left to venkatesh knee arthroplasty on 04/08/16. She has elected to proceed with a left total knee replacement ma nipulation under anesthesia with Dr. Munoz. Surgery is scheduled for 07/13/16. Dr. Munoz discussed the risks and benefits of surgery, and all of her questions were answered. She will follow up with Dr. Munoz seven days post op. JORGE ALVAREZ [id number]/[facility] #: [id number]
[~2016-07-13 06:08] MED LIST changes: -Buffered Lidocaine 1% SYRIN* 3 ML/SYR SYRINGE INTRADERM ONE; -Dexamethasone IV* 4 MG/ML 1 ML (4 MG) IV SLOW PU ONE; +Metoclopramide TAB* 10 MG PO ONE
[2016-07-13] MEDS ORDERED: Metoclopramide TAB* 10 MG ONE (06:10)
[2016-07-13] MEDS ORDERED: Famotidine IV* 10 MG/ML 2 ML (20 mg) ONE (06:10)
[2016-07-13] MEDS ORDERED: Ketorolac INJ* 30 MG/ML 1 ML VIAL ONE (07:10)
[2016-07-13] MEDS ORDERED: Propofol* 10 MG/ML 20 ML BTL IV PUSH ONE (07:10)
[2016-07-13] MEDS ORDERED: Ondansetron INJ* 2 MG/ML VIAL ONE (07:10)
[2016-07-13] MEDS ORDERED: Lidocaine 2% PF * 5 ML VIAL ONE (07:10)
[2016-07-13] MEDS ORDERED: Dexamethasone IV* 4 MG/ML 1 ML (4 MG) ONE (07:10)
[2016-07-13] MEDS ORDERED: Midazolam* 1 MG/ML 5 ML VIAL (5 MG) ONE (07:10)
[2016-07-13] MEDS ORDERED: fentaNYL* 50 MCG/ML 2 ML VIAL (100 MCG VIAL) ONE (07:10)
[2016-07-13] MEDS ORDERED: oxyCODONE/Acetamin 5/325 MG* TAB PO PRN (08:07)
[2016-07-13] MEDS ORDERED: fentaNYL* 50 MCG/ML 2 ML VIAL (100 MCG VIAL) IV PRN (08:07)
[2016-07-13] MEDS ORDERED: Ondansetron INJ* 2 MG/ML VIAL IV PRN (08:07)
--- NOTE | 2016-07-13 08:14 | RAD ---
INDICATION: LEFT total knee replacement manipulation under fluoroscopy. COMPARISON: June 21, 2016 radiographs TECHNIQUE: 6.9 seconds fluoroscopy. FINDINGS: AP and lateral fluoroscopic spot images document normal alignment at the LEFT total knee replacement. No gross evidence for prosthesis loosening or periprosthetic fracture. IMPRESSION: Procedural fluoroscopy. CPT II Codes: 6045F
[2016-07-13 08:44] VITALS: BP 130/61
--- NOTE | 2016-07-14 00:26 | OP ---
OPERATIVE NOTE: DATE OF OPERATION: 07/13/16 - [facility] DATE OF : 54 ATTENDING SURGEON: Myriam Munoz MD ANESTHESIOLOGIST: Dr. Jonas. ANESTHESIA: LMA. PRE-OP DIAGNOSIS: Left total knee arthroplasty stiffness/arthrofibrosis. POST-OP DIAGNOSIS: Left total knee arthroplasty stiffness/arthrofibrosis. PROCEDURE PERFORMED: Manipulation under anesthesia of the left total knee arthroplasty. COMPLICATIONS: None. ESTIMATED BLOOD LOSS: None. SPECIMEN: None. BRIEF HISTORY/INDICATION: Ms. Sigeel is a 66-year-old female, who had left total knee arthroplasty approximately 3 months ago on 04/08/16. Despite aggressive physical therapy and postoperative rehab, she developed stiffness in the knee. She had minimal pain but no range of motion past 85 degrees. Because of this limited range of motion, the patient elected to undergo manipulation under anesthesia. Informed consent was obtained from the patient. She understood the risks of surgery included, but were not limited to bleeding, infection, damage to nearby structure, periprosthetic fracture, stroke, heart attack, blood clot, and . She wished to proceed. INTRAOPERATIVE FINDINGS: Intraoperatively, the patient was noted to have preop range of motion 0 to 80 degrees of flexion. After manipulation, this was 0 to 130 degrees of flexion. There was audible and palpable scar tissue that was broken up easily with gentle manipulation. DESCRIPTION OF PROCEDURE: Ms. Siegel was identified in the preanesthesia unit. Her left lower extremity was marked as the correct operative side. Informed consent was signed and placed in the chart. The patient was taken to the operating room and placed under LMA anesthesia. Preop time-out was made to correctly identify the patient's side and site. Gentle flexion of the knee was performed. There was audible and palpable break- up of scar tissue with very little pressure. The knee immediately flexed to 230 degrees of flexion. There was good patellofemoral tracking, no instability of the knee. AP and lateral C-arm views were obtained to confirm no periprosthetic fracture. No fractures were visualized. The patient's anesthesia was reversed without difficulty. She was taken to the PACU in stable condition. Intended weightbearing will be weightbearing as tolerated. She will have aggressive physical therapy with her first session today. [id number]/[facility] #: [id number] [facility]
== END 2016-07-13 09:10 | disposition home or self-care (01) ==
LOC: OR 06:08
PROVIDERS: ATTEND Orthopaedic Surgery Adult Reconstructive Orthopaedic Surgery
DX: M24.662 Ankylosis, left knee (principal); Z96.652 Presence of left artificial knee joint; I10 Essential (primary) hypertension; J45.909 Unspecified asthma, uncomplicated; M19.90 Unspecified osteoarthritis, unspecified site; Z87.891 Personal history of nicotine dependence
CPT/HCPCS: A9270-GY; J1100; J1885; J2250; J2405; J2704; J3010

== ENCOUNTER 2018-02-19 11:48 | Emergency (ER) | payer OTHER ==
--- OUTSIDE RECORDS SUMMARY | 2018-02-19 12:10 | XMS REPORT | Continuity of Care Document ---
:1950 External Reference #:[id number] Demographics Address [address] [place] [address] Home Phone [phone] Mobile Phone [phone] Work Phone [phone] Email Address Preferred Language en Marital Status Not or Sabianism Affiliation Unknown Race White Ethnic Group Not or Author Name Leticia Kincaid DO Address [address] [place] [id number] Care Team Providers Name Role Phone Leticia Kincaid DO Care Team Information Systems Lead Unavailable Payers Type Date Identification Numbers Payment Provider Subscriber Policy Number: [id number] Lifetime Benefit SLNS Carmen Siegel Group Number: [id number] [address] [address] PayID: [facility] [place] [id number] Effective: 2012 Policy Number: [id number] Rmsco DO Not Use Carmen Siegel Expires: 2014 Group Number: [facility] [address] PayID: [place] [address] Advance Directives Description No Information Available Problems Date Description Provider Status Onset: 08/11/2012 Osteochondropathy Leticia Kincaid DO Active Onset: 04/05/2012 Insomnia Leticia Kincaid DO Active Onset: 04/05/2012 Senile osteoporosis Leticia Kincaid DO Active Onset: 04/05/2012 Allergic rhinitis Leticia Kincaid DO Active Onset: 04/05/2012 Obesity Leticia Kincaid DO Active Onset: 04/05/2012 Skin sensation disturbance Leticia Kincaid DO Active Onset: 04/05/2012 Benign essential hypertension Leticia Kincaid DO Active Onset: 04/05/2012 Gastroesophageal reflux disease Leticia Kincaid DO Active Onset: 06/14/2014 Peptic reflux disease Active Family History Date Family Member(s) Problem(s) Comments Father Alzheimer's Disease Mother Cancer, Lung Social History Type Date Description Comments Sex Unknown Marital Status Tobacco Use Start: Unknown End: Unknown Former Cigarette Smoker Smoking Status Reviewed: 07/21/17 Former Cigarette Smoker ETOH Use Occasionally consumes beer Recreational Drug Use Denies Drug Use Allergies, Adverse Reactions, Alerts Date Description Reaction Status Severity Comments 04/05/2012 Erythromycin Active 04/05/2012 Soybean Oil Active Medications Medication Date Status Form Strength Qnty SIG Indications Ordering Provider Levocetirizine 01/23 Active Tablets 5mg 30tab 1 po qhs Kincaid, Dihydrochloride /2017 s DO Leticia Potassium 01/31 Active Tablets ER 20Meq 180ta Take One Kincaid, Chloride Guillermina bs Tablet By Leticia, Mouth Twice DO A Day Advair Diskus 07/30 Active Aerosol 250-50mcg 3unit inhale one J41.8 Kincaid, /2014 / s puff by Leticia, mouth twice DO a day Singulair 04/18 Active Tablets 10mg 90tab take one Kincaid, s tablet by Leticia, mouth at DO bedtime ( paul ) Chlorthalidone 04/19 Active Tablets 25mg 90tab Take One Kincaid, s Tablet By Leticia, Mouth Every DO Day Lunesta Active Tablets 3mg 30tab 1 by mouth Kincaid, / s every night Leticia, at bedtime DO paul - do not fill until 11/02 Aspirin Adult Active Tablets DR 81mg 1 by mouth Unknown Low Dose /0000 a few times a week Potassium 01/31 Hx Tablets ER 20Meq 180ta Take One Kincaid, Chloride Guillermina bs Tablet By Leticia, - Mouth Twice DO 01/23 A Day /2017 Amoxicillin 01/27 Hx Capsules 500mg 4caps take 4 Kincaid, capsules Leticia, - (2000mg) DO 02/01 one hour prior to dental appointment Amoxicillin 01/04 Hx Capsules 500mg 4caps take 4 Kincaid, capsules Leticia, - (2000mg) DO 01/09 one hour /2016 prior to dental appointment Atorvastatin 09/24 Hx Tablets 10mg 30tab 1 by mouth Kincaid, Calcium s every day Leticia, - DO 01/12 Potassium 03/25 Hx Tablets ER 20Meq 180ta 1 by mouth Kincaid, Chloride ER bs twice a day Leticia, - DO 01/31 Meloxicam 10/17 Hx Tablets 7.5mg 30tab 1 by mouth M25.562 Kincaid, s every day Leticia, - with food x DO 03/24 2 weeks, then as needed Benzonatate 06/01 Hx Capsules 100mg 30cap 1 by mouth Kincaid, s three times Leticia, - a day DO 06/11 Azithromycin 05/18 Hx Tablets 250mg 6tabs 2 by mouth J20.9 Kincaid, x 1, then 1 Leticia, - by mouth DO 05/23 daily x days Fluticasone 06/14 Hx Suspension 50mcg/Act 1unit 1 spray R09.82 Kincaid, Propionate s each Leticia, - nostril 1-2 DO 05/18 times a day /2015 Zostavax 06/14 Hx Solution [id number]/ 1unit 1 injection Kincaid, Rec 0.65ML s to be Leticia, - administere DO 07/14 intramuscul ar at the pharmacy Benzonatate 04/11 Hx Capsules 200mg 30cap 1 tab every , s PO tid prn Leticia, - For Cough DO 06/14 Nebulizer 04/03 Hx Misc 1unit use as J20.9 Kincaid, s needed for Leticia, - coughing/sh DO 09/22 ortness of breath. Give with tubing Albuterol 04/03 Hx Nebulizer (2.5mg/3M 225ml inhale one Kincaid, L) 0.083% vial by Leticia, - mouth via DO 09/22 nebulizer /2017 four times a day as needed Advair Diskus 12/04 Hx Aerosol 250/50 3Unit 1 puff Kincaid, s twice a day Leticia, - DO 07/30 Eszopiclone Hx Tablets 3mg 30tab 1 by mouth Kincaid, / s every at Leticia, - bedtime as DO 04/03 Spiriva Hx Capsules 18mcg 90Cap 1 puff by Kincaid, Handihaler /0000 s mouth every Leticia, - d DO 09/[address] 20mg 90Tab 1 by mouth Kincaid, Sodium /0000 s every day Leticia, - DO 06/14 Montelukast Hx Tablets 10mg 90tab 1 by mouth Kincaid, Sodium /0000 s every night Leticia, - at bedtime DO 04/18 [address]ip[address] 20mg 90tab Take One Kincaid, /0000 s Tablet By Leticia, - Mouth Every DO Warfarin Sodium Hx Tablets 2mg 1 by mouth Unknown /0000 every day - 09/24 Medications Administered in Office Medication Date Status Form Strength Qnty SIG Indications Ordering Provider B-12 Injection Administered Injection Schedule, 016 Nurses B-12 Injection Administered Injection Schedule, 016 Nurses B-12 Injection Administered Injection Schedule, 016 Nurses B-12 Injection Administered Injection Schedule, 016 Nurses B-12 Injection Administered Injection Schedule, 015 Nurses B-12 Injection Administered Injection Schedule, 015 Nurses B-12 Injection Administered Injection Schedule, 015 Nurses B-12 Injection Administered Injection Schedule, 015 Nurses B-12 Injection Administered Injection Schedule, 015 Nurses B-12 Injection Administered Injection Schedule, 015 Nurses B-12 Injection Administered Injection Schedule, 015 Nurses Immunizations CPT Code Status Date Vaccine Reaction Lot # [id number] Given 01/06/2018 Shingrix (Shingles) Zoster Vaccine HZV, Recombinant, Subunit, Adj [id number] Given 01/06/2018 Shingrix (Shingles) Zoster Vaccine HZV, Recombinant, Subunit, Adj [id number] Given 12/14/2017 Flu Vaccine NOS Q2035 Given 12/23/2016 Afluria Imunization Q2035 Given 12/19/2014 Afluria Imunization [facility] DEPT. 80285 Given 12/13/2013 Afluria Or Fluvirin Flu Vac Intramuscular Vital Signs Date Vital Result Comment 01/23/2018 8:10am Weight 211.00 lb Heart Rate 80 /min BP Systolic 128 mmHg BP Diastolic 84 mmHg Respiratory Rate 18 /min Height 61.25 inches 5'1.25" (03/2016) O2 % BldC Oximetry 96 % BMI (Body Mass Index) 39.5 kg/m2 09/22/2017 9:54am Weight 209.00 lb Heart Rate 80 /min BP Systolic 134 mmHg BP Diastolic 86 mmHg Respiratory Rate 18 /min Height 61.25 inches 5'1.25" (03/2016) BMI (Body Mass Index) 39.2 kg/m2 07/21/2017 11:19am Weight 209.00 lb Heart Rate 76 /min BP Systolic 152 mmHg BP Diastolic 84 mmHg Respiratory Rate 18 /min Height 61.25 inches 5'1.25" (03/2016) BMI (Body Mass Index) 39.2 kg/m2 01/12/2017 8:06am Weight 208.00 lb Heart Rate 84 /min BP Systolic 128 mmHg BP Diastolic 82 mmHg Respiratory Rate 18 /min Height 61.25 inches 5'1.25" (03/2016) BMI (Body Mass Index) 39.0 kg/m2 09/24/2016 4:05pm Weight 195.00 lb Heart Rate 70 /min BP Systolic 160 mmHg BP Diastolic 88 mmHg Respiratory Rate 18 /min Height 61.25 inches 5'1.25" (03/2016) BMI (Body Mass Index) 36.5 kg/m2 09/17/2016 11:43am Weight 195.00 lb Heart Rate 72 /min BP Systolic 126 mmHg BP Diastolic 74 mmHg Respiratory Rate 18 /min Height 61.25 inches 5'1.25" (03/2016) BMI (Body Mass Index) 36.5 kg/m2 07/12/2016 8:07am Weight 190.00 lb Heart Rate 60 /min BP Systolic 148 mmHg BP Diastolic 78 mmHg Respiratory Rate 18 /min Height 61.25 inches 5'1.25" (03/2016) BMI (Body Mass Index) 35.6 kg/m2 04/16/2016 10:39am Weight 206.00 lb Heart Rate 60 /min BP Systolic 132 mmHg BP Diastolic 78 mmHg Respiratory Rate 19 /min Height 61.25 inches 5'1.25" (03/2016) BMI (Body Mass Index) 38.6 kg/m2 03/24/2016 10:52am Weight 196.00 lb Heart Rate 72 /min BP Systolic 148 mmHg BP Diastolic 86 mmHg Respiratory Rate 18 /min Height 61.25 inches 5'1.25" (03/2016) BMI (Body Mass Index) 36.7 kg/m2 01/05/2016 8:44am Weight 216.00 lb Heart Rate 70 /min BP Systolic 140 mmHg BP Diastolic 80 mmHg Respiratory Rate 18 /min Height 61.3 inches 5'1.30" BMI (Body Mass Index) 40.4 kg/m2 12/08/2015 1:34pm Weight 222.00 lb Heart Rate 80 /min BP Systolic 158 mmHg BP Diastolic 98 mmHg Respiratory Rate 18 /min Height 61.3 inches 5'1.30" BMI (Body Mass Index) 41.5 kg/m2 09/10/2015 1:29pm Weight 223.00 lb Heart Rate 80 /min BP Systolic 172 mmHg BP Diastolic 92 mmHg BP Systolic Recheck 152 mmHg BP Diastolic Recheck 92 mmHg Respiratory Rate 18 /min Height 61.3 inches 5'1.30" BMI (Body Mass Index) 41.7 kg/m2 06/26/2015 8:04am Weight 219.00 lb Heart Rate 68 /min BP Systolic 118 mmHg BP Diastolic 72 mmHg Respiratory Rate 19 /min Height 61.3 inches 5'1.30" O2 % BldC Oximetry 95 % BMI (Body Mass Index) 41.0 kg/m2 05/19/2015 1:55pm Body Temperature 98.4 F Scottie 3 Hours Ago Weight 214.00 lb Heart Rate 68 /min BP Systolic 138 mmHg BP Diastolic 80 mmHg Respiratory Rate 20 /min Height 61.3 inches 5'1.30" O2 % BldC Oximetry 9495 % BMI (Body Mass Index) 40.0 kg/m2 12/18/2014 8:15am Weight 214.00 lb Heart Rate 72 /min BP Systolic 140 mmHg BP Diastolic 80 mmHg Respiratory Rate 19 /min Height 61.3 inches 5'1.30" BMI (Body Mass Index) 40.0 kg/m2 09/02/2014 9:55am Weight 211.00 lb Heart Rate 80 /min BP Systolic 158 mmHg BP Diastolic 90 mmHg BP Systolic Recheck 136 mmHg BP Diastolic Recheck 78 mmHg Respiratory Rate 20 /min Height 61.3 inches 5'1.30" BMI (Body Mass Index) 39.5 kg/m2 06/14/2014 8:45am Weight 205.00 lb Heart Rate 74 /min BP Systolic 138 mmHg BP Diastolic 72 mmHg Respiratory Rate 18 /min Height 61.3 inches 5'1.30" BMI (Body Mass Index) 38.4 kg/m2 04/03/2014 2:45pm Body Temperature 98.2 F Weight 193.00 lb Heart Rate 68 /min BP Systolic 146 mmHg BP Diastolic 86 mmHg Respiratory Rate 18 /min Height 61.3 inches 5'1.30" O2 % BldC Oximetry 97 % BMI (Body Mass Index) 36.1 kg/m2 12/14/2013 8:49am Weight 200.00 lb Heart Rate 84 /min BP Systolic 144 mmHg BP Diastolic 86 mmHg Respiratory Rate 19 /min Height 61.3 inches 5'1.30" 10/19/2013 9:51am Weight 200.00 lb Heart Rate 72 /min BP Systolic 138 mmHg BP Diastolic 88 mmHg Respiratory Rate 20 /min Height 61.3 inches 5'1.30" 08/14/2013 8:49am BP Systolic 142 mmHg BP Diastolic 76 mmHg 08/14/2013 8:49am Weight 199.00 lb BP Systolic 148 mmHg BP Diastolic 88 mmHg Height 61.3 inches 5'1.30" (03/2012) 02/12/2013 9:56am Weight 205.00 lb Heart Rate 76 /min BP Systolic 146 mmHg BP Diastolic 82 mmHg Respiratory Rate 18 /min Height 61.3 inches 5'1.30" (03/2012) 08/11/2012 9:04am Weight 207.00 lb Heart Rate 64 /min BP Systolic 122 mmHg BP Diastolic 84 mmHg Respiratory Rate 19 /min Height 61.3 inches 5'1.30" (03/2012) 05/03/2012 8:19am Weight 212.00 lb Down 8# Heart Rate 74 /min BP Systolic 134 mmHg L/LG BP Diastolic 90 mmHg L/LG Respiratory Rate 19 /min Height 61.3 inches 5'1.30" (03/2012) 04/19/2012 10:23am BP Systolic 160 mmHg BP Diastolic 80 mmHg 04/19/2012 10:23am Weight 220.00 lb Down 1# Heart Rate 88 /min BP Systolic 150 mmHg L/LG BP Diastolic 98 mmHg L/LG Respiratory Rate 20 /min Height 61.3 inches 5'1.30" (03/2012) 04/05/2012 2:03pm BP Systolic 152 mmHg BP Diastolic 90 mmHg 04/05/2012 2:03pm Weight 221.00 lb Heart Rate 80 /min BP Systolic 170 mmHg BP Diastolic 94 mmHg Respiratory Rate 19 /min Height 61.3 inches 5'1.30" (03/2012) Results Test Date Facility Test Result H/L Range Note Laboratory test finding 01/16/2018 [facility] Vitamin B12 522 pg/mL 180- 914 CPK 105 U/L 12-199 CBC with Auto Diff-fcmg 01/16/2018 [facility] WBC 6.7 K/uL 4.1-11.0 RBC 5.17 M/uL 4.00-5.40 Hemoglobin 12.3 gm/dL 12.0-16.0 Hematocrit 38.9 % 36.0-47.0 MCV 75.3 fL Low 80.0-97.0 MCH 23.8 pg Low 27.0-32.0 MCHC 31.7 g/dL Low 32.0-36.0 RDW 18.7 % High 11.5-14.5 PLT Count 226 K/ul 140-400 MPV 9.0 FL 7.1-10.7 Neutrophil 51.5 % 35.0-75.0 Lymphocyte 34.4 % 16.0-52.0 Monocyte 8.6 % 2.0-10.0 Eosinophil 4.8 % 0.0-5.0 Basophil 0.7 % 0.0-4.0 Abs Neutrophils 3.5 K/uL 2.1-8.0 Abs Lymphocytes 2.3 K/uL 0.8-5.5 Abs Monocytes 0.6 K/uL 0.1-1.0 Abs Eosinophils 0.3 K/uL 0.0-0.5 Abs Basophils 0.0 K/uL 0.0-0.3 Basic (BMP) 01/16/2018 [facility] Sodium 140 mmol/L 135-146 1 Potassium 3.8 mmol/L 3.5-5.2 Chloride# 101 mmol/L 97-110 2 Carbon Dioxide 27 mmol/L 24-34 Glucose 105 mg/dL 70-105 BUN 8 mg/dL 6-26 Creatinine 0.8 mg/dL 0.5-1.4 Calcium 9.3 mg/dL 8.5-10.2 Non Carole Egfr >60 >60 3 Carole Egfr >60 >60 4 Anion Gap 12 mmol/L 5-15 5 Laboratory test finding 01/16/2018 [facility] TSH 3.83 uIU/mL 0.35-4.94 Lipid Treatment 01/16/2018 [facility] Cholesterol 209 mg/dL High 50-199 Triglycerides 97 mg/dL 30-200 HDL 53 mg/dL 35-85 6 Chol/ HDL Ratio 3.9 ratio 3.7-5.6 VLDL 19 mg/dL 2-29 LDL (Calc) 136 mg/dL High 20-99 7 Alt 21 U/L 3-42 Ast 23 U/L 8-42 CBC With Auto Diff 07/15/2017 [facility] WBC 6.2 K/uL 4.1-11.0 RBC 4.95 M/uL 4.00-5.40 Hemoglobin 14.7 gm/dL 12.0-16.0 Hematocrit 43.1 % 36.0-47.0 MCV 87.0 fL 80.0-97.0 MCH 29.7 pg 27.0-32.0 MCHC 34.1 g/dL 32.0-36.0 RDW 15.3 % High 11.5-14.5 PLT Count 172 K/ul 140-400 MPV 9.3 FL 7.1-10.7 Neutrophil 48.0 % 35.0-75.0 Lymphocyte 31.9 % 16.0-52.0 Monocyte 9.6 % 2.0-10.0 Eosinophil 9.7 % High 0.0-5.0 Basophil 0.8 % 0.0-4.0 Abs Neutrophils 3.0 K/uL 2.1-8.0 Abs Lymphocytes 2.0 K/uL 0.8-5.5 Abs Monocytes 0.6 K/uL 0.1-1.0 Abs Eosinophils 0.6 K/uL High 0.0-0.5 Abs Basophils 0.0 K/uL 0.0-0.3 Basic (BMP) 07/15/2017 [facility] Sodium 147 mmol/L High 135-146 8 Potassium 3.3 mmol/L Low 3.5-5.2 Chloride# 108 mmol/L 97-110 9 Carbon Dioxide 29 mmol/L 24-34 Glucose 82 mg/dL 70-105 BUN 9 mg/dL 6-26 Creatinine 0.8 mg/dL 0.5-1.4 Calcium 9.0 mg/dL 8.5-10.2 Non Carole Egfr >60 >60 10 Carole Egfr >60 >60 11 Anion Gap 10 mmol/L 5-15 12 Laboratory test finding 07/15/2017 [facility] TSH 3.07 uIU/mL 0.35-4.94 Lipid Treatment 07/15/2017 [facility] Cholesterol 240 mg/dL High 50-199 Triglycerides 120 mg/dL 30-200 HDL 61 mg/dL 35-85 13 Chol/ HDL Ratio 4.0 ratio 3.7-5.6 VLDL 24 mg/dL 2-29 LDL (Calc) 156 mg/dL High 20-99 14 Alt 28 U/L 3-42 Ast 25 U/L 8-42 Laboratory test finding 07/15/2017 [facility] Vitamin B12 443 pg/mL 180- 914 CPK 80 U/L 12-199 CBC With Auto Diff 12/29/2016 [facility] WBC 6.4 K/uL 4.1-11.0 RBC 4.73 M/uL 4.00-5.40 Hemoglobin 14.3 gm/dL 12.0-16.0 Hematocrit 42.1 % 36.0-47.0 MCV 89.1 fL 80.0-97.0 MCH 30.3 pg 27.0-32.0 MCHC 34.0 g/dL 32.0-36.0 RDW 14.6 % High 11.5-14.5 PLT Count 193 K/ul 140-400 MPV 9.0 FL 7.1-10.7 Neutrophil 45.2 % 35.0-75.0 Lymphocyte 32.7 % 16.0-52.0 Monocyte 7.3 % 2.0-10.0 Eosinophil 13.7 % High 0.0-5.0 Basophil 1.1 % 0.0-4.0 Abs Neutrophils 2.9 K/uL 2.1-8.0 Abs Lymphocytes 2.1 K/uL 0.8-5.5 Abs Monocytes 0.5 K/uL 0.1-1.0 Abs Eosinophils 0.9 K/uL High 0.0-0.5 Abs Basophils 0.1 K/uL 0.0-0.3 Basic (BMP) 12/29/2016 [facility] Sodium 145 mmol/L 135-146 15 Potassium 3.4 mmol/L Low 3.5-5.2 Chloride# 104 mmol/L 97-110 16 Carbon Dioxide 28 mmol/L 24-34 Glucose 98 mg/dL 70-105 Creatinine 0.8 mg/dL 0.5-1.4 Calcium 9.2 mg/dL 8.5-10.2 Non Carole Egfr >60 >60 17 Carole Egfr >60 >60 18 Anion Gap 13 mmol/L 7-16 19 BUN 6 mg/dL 6-26 Laboratory test finding 12/29/2016 [facility] TSH 2.66 uIU/mL 0.35-4.94 Lipid Treatment 12/29/2016 [facility] Cholesterol 254 mg/dL High 50-199 Triglycerides 92 mg/dL 30-200 HDL 72 mg/dL 35-85 20 Chol/ HDL Ratio 3.5 ratio Low 3.7-5.6 VLDL 18 mg/dL 2-29 LDL (Calc) 164 mg/dL High 20-99 21 Alt 24 U/L 3-42 Ast 28 U/L 8-42 Laboratory test finding 12/29/2016 [facility] Iron, Total 55 g/dL 50-170 Vitamin B12 433 pg/mL 180-914 Laboratory test finding 12/29/2016 [facility] Methylmalonic Acid (S) 0.13 umol /L 22 Homocysteine 10.1 umol/L (5.0-20.0) 23 CBC With Auto Diff 07/05/2016 [facility] WBC 5.8 K/uL 4.1-11.0 RBC 5.15 M/uL 4.00-5.40 Hemoglobin 14.5 gm/dL 12.0-16.0 Hematocrit 43.4 % 36.0-47.0 MCV 84.3 fL 80.0-97.0 MCH 28.2 pg 27.0-32.0 MCHC 33.5 g/dL 32.0-36.0 RDW 15.3 % High 11.5-14.5 PLT Count 218 K/ul 140-400 Neutrophil 58.8 % 35.0-75.0 Lymphocyte 28.1 % 16.0-52.0 Monocyte 6.9 % 2.0-10.0 Eosinophil 5.1 % High 0.0-5.0 Basophil 1.1 % 0.0-4.0 Abs Neutrophils 3.4 K/uL 2.1-8.0 Abs Lymphocytes 1.6 K/uL 0.8-5.5 Abs Monocytes 0.4 K/uL 0.1-1.0 Abs Eosinophils 0.3 K/uL 0.0-0.5 Abs Basophils 0.1 K/uL 0.0-0.3 Basic (BMP) 07/05/2016 [facility] Sodium 143 mmol/L 135-146 24 Potassium 3.2 mmol/L Low 3.5-5.2 Chloride# 105 mmol/L 97-110 25 Carbon Dioxide 28 mmol/L 24-34 Glucose 96 mg/dL 70-105 BUN 8 mg/dL 6-26 Creatinine 0.7 mg/dL 0.5-1.4 Calcium 9.1 mg/dL 8.5-10.2 Non Carole Egfr >60 >60 26 Carole Egfr >60 >60 27 Anion Gap 13 mmol/L 7-16 28 Laboratory test finding 07/05/2016 [facility] TSH 1.63 uIU/mL 0.35-4.94 Laboratory test finding 07/05/2016 [facility] Iron, Total 49 g/dL Low 50- 170 Vitamin B12 240 pg/mL 180-914 Lipid Treatment 07/05/2016 [facility] Cholesterol 238 mg/dL High 50-199 Triglycerides 69 mg/dL 30-200 HDL 66 mg/dL 35-85 29 Chol/ HDL Ratio 3.6 ratio Low 3.7-5.6 VLDL 14 mg/dL 2-29 LDL (Calc) 158 mg/dL High 20-99 30 Alt 18 U/L 3-42 Ast 22 U/L 8-42 Basic (BMP) 05/14/2016 [facility] Sodium 141 mmol/L 135-146 31 Potassium 3.7 mmol/L 3.5-5.2 Chloride# 102 mmol/L 97-110 32 Carbon Dioxide 30 mmol/L 24-34 Glucose 106 mg/dL High 70-105 BUN 8 mg/dL 6-26 Creatinine 0.6 mg/dL 0.5-1.4 Calcium 9.0 mg/dL 8.5-10.2 Non Carole Egfr >60 >60 33 Carole Egfr >60 >60 34 Anion Gap 13 mmol/L 7-16 35 CBC With Auto Diff 03/24/2016 [facility] WBC 8.5 K/uL 4.1-11.0 RBC 5.30 M/uL 4.00-5.40 Hemoglobin 15.8 gm/dL 12.0-16.0 Hematocrit 46.3 % 36.0-47.0 MCV 87.3 fL 80.0-97.0 MCH 29.9 pg 27.0-32.0 MCHC 34.2 g/dL 32.0-36.0 RDW 14.5 % 11.5-14.5 PLT Count 202 K/ul 140-400 Neutrophil 59.3 % 35.0-75.0 Lymphocyte 27.9 % 16.0-52.0 Monocyte 8.0 % 2.0-10.0 Eosinophil 3.8 % 0.0-5.0 Basophil 1.0 % 0.0-4.0 Abs Neutrophils 5.0 K/uL 2.1-8.0 Abs Lymphocytes 2.4 K/uL 0.8-5.5 Abs Monocytes 0.7 K/uL 0.1-1.0 Abs Eosinophils 0.3 K/uL 0.0-0.5 Abs Basophils 0.1 K/uL 0.0-0.3 Basic (BMP) 03/24/2016 [facility] Sodium 137 mmol/L 134-142 Potassium 3.0 mmol/L Low 3.5-5.2 Chloride 98 mmol/L 97-109 Carbon Dioxide 31 mmol/L 24-34 Glucose 84 mg/dL 70-105 BUN 8 mg/dL 6- Creatinine 0.7 mg/dL 0.5-1.4 Calcium 9.6 mg/dL 8.5-10.2 Anion Gap 11 mmol/L 6-14 Non Carole Egfr >60 >60 36 Carole Egfr >60 >60 37 Basic (BMP) 12/29/2015 [facility] Sodium 138 mmol/L 134-142 Potassium 3.4 mmol/L Low 3.5-5.2 Chloride 101 mmol/L 97-109 Carbon Dioxide 33 mmol/L 24-34 Glucose 91 mg/dL 70-105 BUN 10 mg/dL 6- Creatinine 0.7 mg/dL 0.5-1.4 Calcium 9.4 mg/dL 8.5-10.2 Anion Gap 7 mmol/L 6- Non Carole Egfr >60 >60 38 Carole Egfr >60 >60 39 Lipid Treatment 12/29/2015 [facility] Cholesterol 217 mg/dL High 50-199 Triglycerides 86 mg/dL 30-200 HDL 80 mg/dL 35-85 40 Chol/ HDL Ratio 2.7 ratio Low 3.7-5.6 VLDL 17 mg/dL 2-29 LDL (Calc) 120 mg/dL High 20-99 41 Alt 30 U/L 3-42 Ast 20 U/L 8-42 Laboratory test finding 12/29/2015 [facility] TSH 3.01 uIU/mL 0.35-4.94 Iron Panel 12/29/2015 [facility] Iron, Total 77 g/dL 50-170 Transferrin 277.1 mg/dL 203.0-362.0 Tibc (calc) 388 g/dL 261-478 % Iron Saturation 19.8 % 13.0-45.0 Laboratory test finding 12/29/2015 [facility] Vitamin B12 337 pg/mL 180- 914 CBC With Auto Diff 12/29/2015 [facility] WBC 9.3 K/uL 4.1-11.0 RBC 5.42 M/uL High 4.00-5.40 Hemoglobin 16.2 gm/dL High 12.0-16.0 Hematocrit 47.0 % 36.0-47.0 MCV 86.7 fL 80.0-97.0 MCH 30.0 pg 27.0-32.0 MCHC 34.6 g/dL 32.0-36.0 RDW 15.1 % High 11.5-14.5 PLT Count 224 K/ul 140-400 Neutrophil 63.1 % 35.0-75.0 Lymphocyte 25.2 % 16.0-52.0 Monocyte 6.3 % 2.0-10.0 Eosinophil 4.2 % 0.0-5.0 Basophil 1.2 % 0.0-4.0 Abs Neutrophils 5.8 K/uL 2.1-8.0 Abs Lymphocytes 2.3 K/uL 0.8-5.5 Abs Monocytes 0.6 K/uL 0.1-1.0 Abs Eosinophils 0.4 K/uL 0.0-0.5 Abs Basophils 0.1 K/uL 0.0-0.3 Lipid Treatment 06/19/2015 [facility] Cholesterol 237 mg/dL High 50-199 42 Triglycerides 134 mg/dL 30-200 HDL 61 mg/dL 35-85 43 Chol/ HDL Ratio 3.9 ratio 3.7-5.6 VLDL 27 mg/dL 2-29 LDL (Calc) 149 mg/dL High 20-99 44 Alt 35 U/L 3-42 Ast 32 U/L 8-42 Laboratory test finding 06/19/2015 [facility] Vitamin B12 374 pg/mL 180- 914 Iron Panel 06/19/2015 [facility] Iron, Total 72 g/dL 50-170 Transferrin 277.8 mg/dL 203.0-362.0 Tibc (calc) 389 g/dL 261-478 % Iron Saturation 18.5 % 13.0-45.0 Laboratory test finding 06/19/2015 [facility] TSH 2.53 uIU/mL 0.35-4.94 Basic (BMP) 06/19/2015 [facility] Sodium 139 mmol/L 134-142 Potassium 3.5 mmol/L 3.5-5.2 Chloride 103 mmol/L 97-109 Carbon Dioxide 29 mmol/L 24-34 Glucose 111 mg/dL High 70-105 BUN 10 mg/dL 6-26 Creatinine 0.7 mg/dL 0.5-1.4 Calcium 9.3 mg/dL 8.5-10.2 Anion Gap 11 mmol/L 6-14 Non Carole Egfr >60 >60 45 Carole Egfr >60 >60 46 CBC With Auto Diff 06/19/2015 [facility] WBC 6.9 K/uL 4.1-11.0 RBC 5.12 M/uL 4.00-5.40 Hemoglobin 15.2 gm/dL 12.0-16.0 Hematocrit 45.9 % 36.0-47.0 MCV 89.6 fL 80.0-97.0 MCH 29.6 pg 27.0-32.0 MCHC 33.1 g/dL 32.0-36.0 RDW 14.7 % High 11.5-14.5 PLT Count 185 K/ul 140-400 Neutrophil 44.3 % 35.0-75.0 Lymphocyte 38.5 % 16.0-52.0 Monocyte 8.6 % 2.0-10.0 Eosinophil 8.0 % High 0.0-5.0 Basophil 0.6 % 0.0-4.0 Abs Neutrophils 3.1 K/uL 2.1-8.0 Abs Lymphocytes 2.7 K/uL 0.8-5.5 Abs Monocytes 0.6 K/uL 0.1-1.0 Abs Eosinophils 0.6 K/uL High 0.0-0.5 Abs Basophils 0.0 K/uL 0.0-0.3 Laboratory test 01/08/2015 [facility] Gastric See Note 47 finding (315)- - Biopsy/Polyp Laboratory test 12/26/2014 [facility] Gastric See Note 48 finding (315)- - Biopsy/Polyp Laboratory test 12/09/2014 [facility] Vitamin B12 338 pg/mL 180-91 finding 4 Iron Panel 12/09/2014 [facility] Iron, Total 80 g/dL 50-170 Transferrin 271.0 mg/dL 203.0-362.0 Tibc (calc) 379 g/dL 261-478 % Iron Saturation 21.1 % 13.0-45.0 CBC With Auto Diff 12/09/2014 [facility] WBC 6.6 K/uL 4.1-11.0 RBC 5.18 M/uL 4.00-5.40 Hemoglobin 14.8 gm/dL 12.0-16.0 Hematocrit 44.7 % 36.0-47.0 MCV 86.3 fL 80.0-97.0 MCH 28.5 pg 27.0-32.0 MCHC 33.0 g/dL 32.0-36.0 RDW 15.4 % High 11.5-14.5 PLT Count 190 K/ul 140-400 Neutrophil 61.0 % 35.0-75.0 Lymphocyte 24.6 % 16.0-52.0 Monocyte 9.1 % 2.0-10.0 Eosinophil 4.6 % 0.0-5.0 Basophil 0.7 % 0.0-4.0 Abs Neutrophils 4.0 K/uL 2.1-8.0 Abs Lymphocytes 1.6 K/uL 0.8-5.5 Abmon 0.6 K/uL 0.1-1.0 Abs Eosinophils 0.3 K/uL 0.0-0.5 Abs Basophils 0.0 K/uL 0.0-0.3 Basic (BMP) 12/09/2014 [facility] Sodium 137 mmol/L 134-142 Potassium 3.2 mmol/L Low 3.5-5.2 Chloride 101 mmol/L 97-109 Carbon Dioxide 28 mmol/L 24-34 Glucose 95 mg/dL 70-105 BUN 9 mg/dL 6-26 Creatinine 0.7 mg/dL 0.5-1.4 Calcium 9.0 mg/dL 8.5-10.2 Anion Gap 11 mmol/L 6-14 Non Carole Egfr >60 >60 49 Carole Egfr >60 >60 50 Lipid Treatment 12/09/2014 [facility] Cholesterol 217 mg/dL High 50-199 Triglycerides 116 mg/dL 30-200 HDL 59 mg/dL 35-85 51 Chol/ HDL Ratio 3.7 ratio 3.7-5.6 VLDL 23 mg/dL 2-29 LDL (Calc) 135 mg/dL High 20-99 52 Alt 35 U/L 3-42 Ast 27 U/L 8-42 CBC With Auto Diff 08/29/2014 [facility] WBC 6.6 K/uL 4.1-11.0 RBC 5.38 M/uL 4.00-5.40 Hemoglobin 13.6 gm/dL 12.0-16.0 Hematocrit 41.9 % 36.0-47.0 MCV 77.9 fL Low 80.0-97.0 MCH 25.3 pg Low 27.0-32.0 MCHC 32.5 g/dL 32.0-36.0 RDW 27.3 % High 11.5-14.5 PLT Count 196 K/ul 140-400 Neutrophil 49.7 % 35.0-75.0 Lymphocyte 33.6 % 16.0-52.0 Monocyte 8.5 % 2.0-10.0 Eosinophil 7.3 % High 0.0-5.0 Basophil 0.9 % 0.0-4.0 Abs Neutrophils 3.3 K/uL 2.1-8.0 Abs Lymphocytes 2.2 K/uL 0.8-5.5 Abmon 0.6 K/uL 0.1-1.0 Abs Eosinophils 0.5 K/uL 0.0-0.5 Abs Basophils 0.1 K/uL 0.0-0.3 Laboratory test finding 08/29/2014 [facility] Vitamin B12 432 pg/mL 180- 914 [facility]/dL Low 50-170 Transferrin 311.8 mg/dL 203.0-362.0 Tibc (calc) 437 g/dL 261-478 % Iron Saturation 8.0 % Low 13.0-45.0 Iron Panel 07/16/2014 [facility] Iron, Total 22 g/dL Low 50-170 Transferrin 352.8 mg/dL 203.0-362.0 Tibc (calc) 494 g/dL High 261-478 % Iron Saturation 4.5 % Low 13.0-45.0 Laboratory test finding 07/16/2014 [facility] Vitamin B12 196 pg/mL 180- 914 CBC With Auto Diff 07/16/2014 [facility] WBC 7.4 K/uL 4.1-11.0 RBC 4.79 M/uL 4.00-5.40 Hemoglobin 10.4 gm/dL Low 12.0-16.0 Hematocrit 34.3 % Low 36.0-47.0 MCV 71.6 fL Low 80.0-97.0 MCH 21.7 pg Low 27.0-32.0 MCHC 30.3 g/dL Low 32.0-36.0 RDW 18.6 % High 11.5-14.5 PLT Count 260 K/ul 140-400 Neutrophil 59.6 % 35.0-75.0 Lymphocyte 24.2 % 16.0-52.0 Monocyte 6.6 % 2.0-10.0 Eosinophil 8.6 % High 0.0-5.0 Basophil 1.0 % 0.0-4.0 Abs Neutrophils 4.4 K/uL 2.1-8.0 Abs Lymphocytes 1.8 K/uL 0.8-5.5 Abmon 0.5 K/uL 0.1-1.0 Abs Eosinophils 0.6 K/uL High 0.0-0.5 Abs Basophils 0.1 K/uL 0.0-0.3 Laboratory test finding 06/14/2014 [facility] Magnesium 2.2 mg/dL 1.5-2.7 Lipid Treatment 06/14/2014 [facility] Cholesterol 255 mg/dL High 50-199 Triglycerides 112 mg/dL 30-200 HDL 64 mg/dL 35-85 53 Chol/ HDL Ratio 4.0 ratio 3.7-5.6 VLDL 22 mg/dL 2-29 LDL (Calc) 169 mg/dL High 20-99 54 Alt 16 U/L 3-42 Ast 21 U/L 8-42 Laboratory test finding 06/14/2014 [facility] TSH 1.80 uIU/mL 0.34-5.60 Basic (BMP) 06/14/2014 [facility] Sodium 140 mmol/L 134-142 Potassium 3.5 mmol/L 3.5-5.2 Chloride 101 mmol/L 97-109 Carbon Dioxide 30 mmol/L 24-34 Glucose 100 mg/dL 70-105 BUN 9 mg/dL 6-26 Creatinine 0.7 mg/dL 0.5-1.4 Calcium 9.1 mg/dL 8.5-10.2 Anion Gap 13 mmol/L 6-14 Non Carole Egfr >60 >60 55 Carole Egfr >60 >60 56 CBC With Auto Diff 06/14/2014 [facility] WBC 9.0 K/uL 4.1-11.0 RBC 4.88 M/uL 4.00-5.40 Hemoglobin 11.0 gm/dL Low 12.0-16.0 Hematocrit 34.6 % Low 36.0-47.0 MCV 71.0 fL Low 80.0-97.0 MCH 22.6 pg Low 27.0-32.0 MCHC 31.8 g/dL Low 32.0-36.0 RDW 18.7 % High 11.5-14.5 PLT Count 254 K/ul 140-400 Neutrophil 52.9 % 35.0-75.0 Lymphocyte 23.7 % 16.0-52.0 Monocyte 7.2 % 2.0-10.0 Eosinophil 15.3 % High 0.0-5.0 Basophil 0.9 % 0.0-4.0 Abs Neutrophils 4.8 K/uL 2.1-8.0 Abs Lymphocytes 2.1 K/uL 0.8-5.5 Abmon 0.6 K/uL 0.1-1.0 Abs Eosinophils 1.4 K/uL High 0.0-0.5 Abs Basophils 0.1 K/uL 0.0-0.3 Laboratory test finding 12/14/2013 N2N/[facility]D Import A/G Ratio 1.4 ratio Low 1.6-2.2 Albumin 4.2 g/dL 3.5-5.0 Alk. Phos. 102.0 U/L 30.0-126.0 Alt 34.0 U/L 9.0-52.0 Anion Gap 7.0 mmol/L Low 10.0-20.0 Ast 37.0 U/L High 14.0-36.0 BUN 9.0 mg/dL 7.0-18.0 BUN/Creat Ratio 12.9 ratio 12.0-20.0 Calcium 9.1 mg/dL 8.7-10.5 Chloride 104.0 mmol/L 98.0-107.0 Co2 29.0 mmol/L 22.0-30.0 Creatinine-Serum 0.7 mg/dL 0.7-1.2 Globulin 2.9 g/dL 2.7-4.3 Glucose 99.0 mg/dL 75.0-110.0 Potasium 3.1 mmol/L Low 3.6-5.0 Sodium 140.0 mmil/L 137.0-145.0 Total Bilirubin 0.5 mg/dL 0.2-1.3 Total Protein 7.1 g/dL 6.3-8.2 eGFR 97.5 mi/minper1.73 57 Laboratory test finding 08/14/2013 [facility] Import BUN 11.0 mg/dL 7.0- 18.0 BUN/Creat Ratio 13.8 ratio 12.0-20.0 Calcium 9.5 mg/dL 8.7-10.5 Chloride 105.0 mmol/L 98.0-107.0 Co2 29.0 mmol/L 22.0-30.0 Creatinine-Serum 0.8 mg/dL 0.7-1.2 Glucose 107.0 mg/dL 75.0-110.0 Magnesium 2.3 1.7-2.3 Potasium 3.2 mmol/L Low 3.6-5.0 Sodium 143.0 mmil/L 137.0-145.0 ck 88.0 26.0-190.0 eGFR 77.5 Lipid Panel 02/05/2013 [facility] Chol/HDL Ratio 3.5 ratio Cholesterol 236.0 mg/dL High 50.0-199.0 HDL 67.0 mg/dL 29.0-86.0 LDL, Calculated 146.4 mg/dL High 20.0-129.0 Triglycerides 113.0 mg/dL 30.0-249.0 vLDL 22.6 ng/dL Laboratory test finding 02/05/2013 [facility] Import % Baso. 1.9 % 0.0-2.0 % Eos. 6.4 % High 0.0-4.0 % Lymph 36 % 20-44 % [place] 8.2 % 2.0-10.0 % [place] 48 % Low 50-70 A/G Ratio 1.6 ratio 1.6-2.2 Absolute Baso. 0.1 K/ul 0.0-0.3 Absolute Eos. 0.3 K/ul 0.0-0.5 Absolute Lymph. 1.9 K/ul 0.8-4.8 Absolute [place]. 0.4 K/ul 0.1-1.0 Absolute [place]. 2.60 K/ul 2.05-7.63 Albumin 4.0 g/dL 3.5-5.0 Alk. Phos. 88.0 U/L 30.0-126.0 Alt 29.0 U/L 9.0-52.0 Anion Gap 9.0 mmol/L Low 10.0-20.0 Ast 30.0 U/L 14.0-36.0 BUN 10.0 mg/dL 7.0-18.0 BUN/Creat Ratio 12.5 ratio 12.0-20.0 Calcium 9.5 mg/dL 8.7-10.5 Chloride 105.0 mmol/L 98.0-107.0 Co2 30.0 mmol/L 22.0-30.0 Creatinine-Serum 0.8 mg/dL 0.7-1.2 Globulin 2.5 g/dL Low 2.7-4.3 Glucose 85.0 mg/dL 75.0-110.0 HCT 42.3 % 37.0-51.0 HGB 14.1 Gm/dl 12.0-16.0 MCH 27.9 pg 26.0-32.0 MCHC 33.3 g/dL 31.0-36.0 MCV 83.8 Fl 80.0-97.0 MPV 7.4 fL 6.0-10.0 PLT 206 K/ul 140-440 Potasium 3.5 mmol/L Low 3.6-5.0 RBC 5.1 M/ul 4.2-6.3 RDW 14.6 % High 11.5-14.5 Sodium 144.0 mmil/L 137.0-145.0 TSH 1.92 uIU/ml 0.50-6.00 Total Bilirubin 0.5 mg/dL 0.2-1.3 Total Protein 6.5 g/dL 6.3-8.2 WBC 5.4 K/ul 4.1-10.9 eGFR 82.7 mi/minper1.73 58 Laboratory test finding 08/11/2012 [facility] Import [id number] See Note 59 Lipid Panel 04/20/2012 N2N/[facility]D Import Chol/HDL Ratio 3.4 ratio Cholesterol 210.0 mg/dL High 50.0-199.0 HDL 62.0 mg/dL 29.0-86.0 LDL, Calculated 130.8 mg/dL High 20.0-129.0 Triglycerides 86.0 mg/dL 30.0-249.0 vLDL 17.2 ng/dL Laboratory test finding 04/20/2012 N2N/CCD Import % Baso. 1.5 % 0.0-2.0 % Eos. 8.5 % High 0.0-4.0 % Lymph 37 % 20-44 % [place] 8.6 % 2.0-10.0 % [place] 45 % Low 50-70 A/G Ratio 1.6 ratio Low 1.6-2.2 Absolute Baso. 0.1 K/ul 0.0-0.3 Absolute Eos. 0.5 K/ul 0.0-0.5 Absolute Lymph. 2.1 K/ul 0.8-4.8 Absolute [place]. 0.5 K/ul 0.1-1.0 Absolute [place]. 2.58 K/ul 2.05-7.63 Albumin 3.6 g/dL 3.5-5.0 Alk. Phos. 95.0 U/L 30.0-126.0 Alt 19.0 U/L 9.0-52.0 Anion Gap 9.0 mmol/L Low 10.0-20.0 Ast 21.0 U/L 14.0-36.0 BUN 12.0 mg/dL 7.0-18.0 BUN/Creat Ratio 15.0 ratio 12.0-20.0 Calcium 9.2 mg/dL 8.7-10.5 Chloride 110.0 mmol/L High 98.0-107.0 Co2 25.0 mmol/L 22.0-30.0 Creatinine-Serum 0.8 mg/dL 0.7-1.2 Globulin 2.3 g/dL Low 2.7-4.3 Glucose 91.0 mg/dL 75.0-110.0 HCT 42.5 % 37.0-51.0 HGB 13.1 Gm/dl 12.0-16.0 MCH 26.2 pg 26.0-32.0 MCHC 30.9 g/dL Low 31.0-36.0 MCV 84.7 Fl 80.0-97.0 MPV 8.6 fL 6.0-10.0 PLT 196 K/ul 140-440 Potasium 4.1 mmol/L 3.6-5.0 RBC 5.0 M/ul 4.2-6.3 RDW 14.7 % High 11.5-14.5 Sodium 144.0 mmil/L 137.0-145.0 TSH 2.26 uIU/ml 0.50-6.00 Total Bilirubin 0.4 mg/dL 0.2-1.3 Total Protein 5.9 g/dL Low 6.3-8.2 WBC 5.8 K/ul 4.1-10.9 eGFR 77.8 mi/minper1.7 60 1 Updated reference range on new analyzer 2 Updated reference range on new analyzer 3 Concerning GFR Guidelines: Normal function or mild renal disease, if clinically at risk: >/=60 mL/min Moderately decreased: 30-59 Severely decreased: 15-29 Renal failure: <15 Glomerular Filtration Rate (GFR) is estimated based on the MDRD equation, which assumes a steady state for creatinine as recommended by the National Kidney Disease Education Program in conjunction with the National Institutes of Health and the National Kidney Foundation. Clinical conditions in which it may be necessary to measure GFR by using clearance methods include extremes of age and body size, severe malnutrition or obesity, diseases of skeletal muscle, paraplegia or quadriplegia, vegetarian diet, rapidly changing kidney function, and calculation of the dose of potentially toxic drugs that are excreted by the kidneys. 4 Concerning GFR Guidelines for Americans: Normal function or mild renal disease, if clinically at risk: >/=60 mL/min Moderately decreased: 30-59 Severely decreased: 15-29 Renal failure: <15 5 Updated Reference Range 6 Per NCEP ATP III Guidelines: Results lower than 40 mg/dL are suggestive of increased risk for coronary artery disease. Results > or=to 60 mg/dL are considered a negative risk factor. 7 Per NCEP ATP III Guidelines: Normal Population <130 Patients with medical conditions: CHD/DM Optimal: <100 Borderline high: 130-159 High: 160-189 Very high: >189 8 Updated reference range on new analyzer 9 Updated reference range on new analyzer 10 Concerning GFR Guidelines: Normal function or mild renal disease, if clinically at risk: >/=60 mL/min Moderately decreased: 30-59 Severely decreased: 15-29 Renal failure: <15 Glomerular Filtration Rate (GFR) is estimated based on the MDRD equation, which assumes a steady state for creatinine as recommended by the National Kidney Disease Education Program in conjunction with the National Institutes of Health and the National Kidney Foundation. Clinical conditions in which it may be necessary to measure GFR by using clearance methods include extremes of age and body size, severe malnutrition or obesity, diseases of skeletal muscle, paraplegia or quadriplegia, vegetarian diet, rapidly changing kidney function, and calculation of the dose of potentially toxic drugs that are excreted by the kidneys. 11 Concerning GFR Guidelines for Americans: Normal function or mild renal disease, if clinically at risk: >/=60 mL/min Moderately decreased: 30-59 Severely decreased: 15-29 Renal failure: <15 12 Updated Reference Range 13 Per NCEP ATP III Guidelines: Results lower than 40 mg/dL are suggestive of increased risk for coronary artery disease. Results > or=to 60 mg/dL are considered a negative risk factor. 14 Per NCEP ATP III Guidelines: Normal Population <130 Patients with medical conditions: CHD/DM Optimal: <100 Borderline high: 130-159 High: 160-189 Very high: >189 15 Updated reference range on new analyzer 16 Updated reference range on new analyzer 17 Concerning GFR Guidelines: Normal function or mild renal disease, if clinically at risk: >/=60 mL/min Moderately decreased: 30-59 Severely decreased: 15-29 Renal failure: <15 Glomerular Filtration Rate (GFR) is estimated based on the MDRD equation, which assumes a steady state for creatinine as recommended by the National Kidney Disease Education Program in conjunction with the National Institutes of Health and the National Kidney Foundation. Clinical conditions in which it may be necessary to measure GFR by using clearance methods include extremes of age and body size, severe malnutrition or obesity, diseases of skeletal muscle, paraplegia or quadriplegia, vegetarian diet, rapidly changing kidney function, and calculation of the dose of potentially toxic drugs that are excreted by the kidneys. 18 Concerning GFR Guidelines for Americans: Normal function or mild renal disease, if clinically at risk: >/=60 mL/min Moderately decreased: 30-59 Severely decreased: 15-29 Renal failure: <15 19 Updated reference range on new analyzer 20 Per NCEP ATP III Guidelines: Results lower than 40 mg/dL are suggestive of increased risk for coronary artery disease. Results > or=to 60 mg/dL are considered a negative risk factor. 21 Per NCEP ATP III Guidelines: Normal Population <130 Patients with medical conditions: CHD/DM Optimal: <100 Borderline high: 130-159 High: 160-189 Very high: >189 22 Reference range: 0.00 to 0.40 INTERPRETIVE INFORMATION: MMA Serum/Plasma, Vitamin B12 Status Test developed and characteristics determined by [facility]. See Compliance Statement B: [facility] Performed by [facility], [address] [place] [id number] [email or web address], Giovanni Goode MD, Lab. Director Unless otherwise specified, testing performed by [facility] [address] [place] [id number] 23 Unless otherwise specified, testing performed by [facility] [address] [place] [id number] 24 Updated reference range on new analyzer 25 Updated reference range on new analyzer 26 Concerning GFR Guidelines: Normal function or mild renal disease, if clinically at risk: >/=60 mL/min Moderately decreased: 30-59 Severely decreased: 15-29 Renal failure: <15 Glomerular Filtration Rate (GFR) is estimated based on the MDRD equation, which assumes a steady state for creatinine as recommended by the National Kidney Disease Education Program in conjunction with the National Institutes of Health and the National Kidney Foundation. Clinical conditions in which it may be necessary to measure GFR by using clearance methods include extremes of age and body size, severe malnutrition or obesity, diseases of skeletal muscle, paraplegia or quadriplegia, vegetarian diet, rapidly changing kidney function, and calculation of the dose of potentially toxic drugs that are excreted by the kidneys. 27 Concerning GFR Guidelines for Americans: Normal function or mild renal disease, if clinically at risk: >/=60 mL/min Moderately decreased: 30-59 Severely decreased: 15-29 Renal failure: <15 28 Updated reference range on new analyzer 29 Per NCEP ATP III Guidelines: Results lower than 40 mg/dL are suggestive of increased risk for coronary artery disease. Results > or=to 60 mg/dL are considered a negative risk factor. 30 Per NCEP ATP III Guidelines: Normal Population <130 Patients with medical conditions: CHD/DM Optimal: <100 Borderline high: 130-159 High: 160-189 Very high: >189 31 Updated reference range on new analyzer 32 Updated reference range on new analyzer 33 Concerning GFR Guidelines: Normal function or mild renal disease, if clinically at risk: >/=60 mL/min Moderately decreased: 30-59 Severely decreased: 15-29 Renal failure: <15 Glomerular Filtration Rate (GFR) is estimated based on the MDRD equation, which assumes a steady state for creatinine as recommended by the National Kidney Disease Education Program in conjunction with the National Institutes of Health and the National Kidney Foundation. Clinical conditions in which it may be necessary to measure GFR by using clearance methods include extremes of age and body size, severe malnutrition or obesity, diseases of skeletal muscle, paraplegia or quadriplegia, vegetarian diet, rapidly changing kidney function, and calculation of the dose of potentially toxic drugs that are excreted by the kidneys. 34 Concerning GFR Guidelines for Americans: Normal function or mild renal disease, if clinically at risk: >/=60 mL/min Moderately decreased: 30-59 Severely decreased: 15-29 Renal failure: <15 35 Updated reference range on new analyzer 36 Concerning GFR Guidelines: Normal function or mild renal disease, if clinically at risk: >/=60 mL/min Moderately decreased: 30-59 Severely decreased: 15-29 Renal failure: <15 Glomerular Filtration Rate (GFR) is estimated based on the MDRD equation, which assumes a steady state for creatinine as recommended by the National Kidney Disease Education Program in conjunction with the National Institutes of Health and the National Kidney Foundation. Clinical conditions in which it may be necessary to measure GFR by using clearance methods include extremes of age and body size, severe malnutrition or obesity, diseases of skeletal muscle, paraplegia or quadriplegia, vegetarian diet, rapidly changing kidney function, and calculation of the dose of potentially toxic drugs that are excreted by the kidneys. 37 Concerning GFR Guidelines for Americans: Normal function or mild renal disease, if clinically at risk: >/=60 mL/min Moderately decreased: 30-59 Severely decreased: 15-29 Renal failure: <15 38 Concerning GFR Guidelines: Normal function or mild renal disease, if clinically at risk: >/=60 mL/min Moderately decreased: 30-59 Severely decreased: 15-29 Renal failure: <15 Glomerular Filtration Rate (GFR) is estimated based on the MDRD equation, which assumes a steady state for creatinine as recommended by the National Kidney Disease Education Program in conjunction with the National Institutes of Health and the National Kidney Foundation. Clinical conditions in which it may be necessary to measure GFR by using clearance methods include extremes of age and body size, severe malnutrition or obesity, diseases of skeletal muscle, paraplegia or quadriplegia, vegetarian diet, rapidly changing kidney function, and calculation of the dose of potentially toxic drugs that are excreted by the kidneys. 39 Concerning GFR Guidelines for Americans: Normal function or mild renal disease, if clinically at risk: >/=60 mL/min Moderately decreased: 30-59 Severely decreased: 15-29 Renal failure: <15 40 Per NCEP ATP III Guidelines: Results lower than 40 mg/dL are suggestive of increased risk for coronary artery disease. Results > or=to 60 mg/dL are considered a negative risk factor. 41 Per NCEP ATP III Guidelines: Normal Population <130 Patients with medical conditions: CHD/DM Optimal: <100 Borderline high: 130-159 High: 160-189 Very high: >189 42 Fastin hours 43 Per NCEP ATP III Guidelines: Results lower than 40 mg/dL are suggestive of increased risk for coronary artery disease. Results > or=to 60 mg/dL are considered a negative risk factor. 44 Per NCEP ATP III Guidelines: Normal Population <130 Patients with medical conditions: CHD/DM Optimal: <100 Borderline high: 130-159 High: 160-189 Very high: >189 45 Concerning GFR Guidelines: Normal function or mild renal disease, if clinically at risk: >/=60 mL/min Moderately decreased: 30-59 Severely decreased: 15-29 Renal failure: <15 Glomerular Filtration Rate (GFR) is estimated based on the MDRD equation, which assumes a steady state for creatinine as recommended by the National Kidney Disease Education Program in conjunction with the National Institutes of Health and the National Kidney Foundation. Clinical conditions in which it may be necessary to measure GFR by using clearance methods include extremes of age and body size, severe malnutrition or obesity, diseases of skeletal muscle, paraplegia or quadriplegia, vegetarian diet, rapidly changing kidney function, and calculation of the dose of potentially toxic drugs that are excreted by the kidneys. 46 Concerning GFR Guidelines for Americans: Normal function or mild renal disease, if clinically at risk: >/=60 mL/min Moderately decreased: 30-59 Severely decreased: 15-29 Renal failure: <15 47 OPERATION/PROCEDURE Colon., EGD ADDENDUM Addendum #1 Entered: 01/01/151106 An H-pylori immunostain, with appropriately reactive controls, was performed on sections cut from specimen 5, and is negative for helicobacter organisms. Addendum Signed Electronically signed Kelly ROSARIO MD 1203 DIAGNOSIS: PART 1: "COLON, CECUM, BIOPSY": - TUBULAR ADENOMA. - NO HIGH GRADE DYSPLASIA OR MALIGNANCY. PART 2: "COLON, RANDOM, BIOPSY": - BENIGN COLONIC MUCOSA WITH NO SIGNIFICANT PATHOLOGIC ABNORMALITIES. - NO EVIDENCE OF MICROSCOPIC COLITIS. PART 3: "COLON, SIGMOID, BIOPSY": - HYPERPLASTIC POLYP. PART 4: "DUODENUM, BIOPSY": - BENIGN DUODENAL MUCOSA WITH NO SIGNIFICANT PATHOLOGIC ABNORMALITIES. - NO EVIDENCE OF VILLOUS BLUNTING OR INCREASED INTRAEPITHELIAL LYMPHOCYTES. PART 5: "STOMACH, BIOPSY": - ANTRAL AND BODY TYPE GASTRIC MUCOSA WITH MODERATE CHRONIC GASTRITIS; SEE COMMENT. DIAGNOSIS: (Continued) /emilio 1051 INTERPRETATION COMMENT An H-pylori immunostain is pending and the results will be reported in an addendum. GROSS Received in formalin in five properly labeled containers with the patient's name and accession number. Part 1; The specimen is designated as "CECAL POLYP" and consists of multiple pieces of soft harrison tissue in aggregate measuring 0.6 x 0.4 x 0.2 cm. The entire specimen is submitted in cassette one. Part 2; The specimen is designated as "RANDOM COLON BIOPSY" and consists of several pieces of soft harrison rubbery tissue measuring in aggregate 1.0 x 0.4 x 0.4 cm. The entire specimen is submitted in cassette two. Part 3; The specimen is designated as "SIGMOID POLYP" and consists of several pieces of soft harrison rubbery tissue measuring in aggregate 0.5 x 0.4 x 0.4 cm. The entire specimen is submitted in cassette three. Part 4; The specimen is designated as "DUODENAL BIOPSY" and consists of several pieces of soft harrison rubbery tissue measuring in aggregate 0.8 x 0.6 x 0.4 cm. The entire specimen is submitted in cassette four. Part 5; The specimen is designated as "STOMACH BIOPSY" and consists of two pieces of soft harrison rubbery tissue measuring in aggregate 0.5 x 0.4 x 0.4 cm. The entire specimen is submitted in cassette five. /emilio PRE OPERATIVE DIAGNOSIS Iron def. anemia REVIEW CODE CODE: I Signed Electronically signed Kelly ROSARIO MD [id number] 48 OPERATION/PROCEDURE Colon., EGD ADDENDUM Addendum #1 Entered: 01/01/15 An H-pylori immunostain, with appropriately reactive controls, was performed on sections cut from specimen 5, and is negative for helicobacter organisms. Addendum Signed Electronically signed Kelly ROSARIO MD 1203 DIAGNOSIS: PART 1: "COLON, CECUM, BIOPSY": - TUBULAR ADENOMA. - NO HIGH GRADE DYSPLASIA OR MALIGNANCY. PART 2: "COLON, RANDOM, BIOPSY": - BENIGN COLONIC MUCOSA WITH NO SIGNIFICANT PATHOLOGIC ABNORMALITIES. - NO EVIDENCE OF MICROSCOPIC COLITIS. PART 3: "COLON, SIGMOID, BIOPSY": - HYPERPLASTIC POLYP. PART 4: "DUODENUM, BIOPSY": - BENIGN DUODENAL MUCOSA WITH NO SIGNIFICANT PATHOLOGIC ABNORMALITIES. - NO EVIDENCE OF VILLOUS BLUNTING OR INCREASED INTRAEPITHELIAL LYMPHOCYTES. PART 5: "STOMACH, BIOPSY": DIAGNOSIS: (Continued) - ANTRAL AND BODY TYPE GASTRIC MUCOSA WITH MODERATE CHRONIC GASTRITIS; SEE COMMENT. KEVIN/emliio 1051 INTERPRETATION COMMENT An H-pylori immunostain is pending and the results will be reported in an addendum. GROSS Received in formalin in five properly labeled containers with the patient's name and accession number. Part 1; The specimen is designated as "CECAL POLYP" and consists of multiple pieces of soft harrison tissue in aggregate measuring 0.6 x 0.4 x 0.2 cm. The entire specimen is submitted in cassette one. Part 2; The specimen is designated as "RANDOM COLON BIOPSY" and consists of several pieces of soft harrison rubbery tissue measuring in aggregate 1.0 x 0.4 x 0.4 cm. The entire specimen is submitted in cassette two. Part 3; The specimen is designated as "SIGMOID POLYP" and consists of several pieces of soft harrison rubbery tissue measuring in aggregate 0.5 x 0.4 x 0.4 cm. The entire specimen is submitted in cassette three. Part 4; The specimen is designated as "DUODENAL BIOPSY" and consists of several pieces of soft harrison rubbery tissue measuring in aggregate 0.8 x 0.6 x 0.4 cm. The entire specimen is submitted in cassette four. Part 5; The specimen is designated as "STOMACH BIOPSY" and consists of two pieces of soft harrison rubbery tissue measuring in aggregate 0.5 x 0.4 x 0.4 cm. The entire specimen is submitted in cassette five. KACEY/emilio PRE OPERATIVE DIAGNOSIS Iron def. anemia REVIEW CODE CODE: I Signed Electronically signed Kelly ROSARIO MD 1137 49 Concerning GFR Guidelines: Normal function or mild renal disease, if clinically at risk: >/=60 mL/min Moderately decreased: 30-59 Severely decreased: 15-29 Renal failure: <15 Glomerular Filtration Rate (GFR) is estimated based on the MDRD equation, which assumes a steady state for creatinine as recommended by the National Kidney Disease Education Program in conjunction with the National Institutes of Health and the National Kidney Foundation. Clinical conditions in which it may be necessary to measure GFR by using clearance methods include extremes of age and body size, severe malnutrition or obesity, diseases of skeletal muscle, paraplegia or quadriplegia, vegetarian diet, rapidly changing kidney function, and calculation of the dose of potentially toxic drugs that are excreted by the kidneys. 50 Concerning GFR Guidelines for Americans: Normal function or mild renal disease, if clinically at risk: >/=60 mL/min Moderately decreased: 30-59 Severely decreased: 15-29 Renal failure: <15 51 Per NCEP ATP III Guidelines: Results lower than 40 mg/dL are suggestive of increased risk for coronary artery disease. Results > or=to 60 mg/dL are considered a negative risk factor. 52 Per NCEP ATP III Guidelines: Normal Population <130 Patients with medical conditions: CHD/DM Optimal: <100 Borderline high: 130-159 High: 160-189 Very high: >189 53 Per NCEP ATP III Guidelines: Results lower than 40 mg/dL are suggestive of increased risk for coronary artery disease. Results > or=to 60 mg/dL are considered a negative risk factor. 54 Per NCEP ATP III Guidelines: Normal Population <130 Patients with medical conditions: CHD/DM Optimal: <100 Borderline high: 130-159 High: 160-189 Very high: >189 55 Concerning GFR Guidelines: Normal function or mild renal disease, if clinically at risk: >/=60 mL/min Moderately decreased: 30-59 Severely decreased: 15-29 Renal failure: <15 Glomerular Filtration Rate (GFR) is estimated based on the MDRD equation, which assumes a steady state for creatinine as recommended by the National Kidney Disease Education Program in conjunction with the National Institutes of Health and the National Kidney Foundation. Clinical conditions in which it may be necessary to measure GFR by using clearance methods include extremes of age and body size, severe malnutrition or obesity, diseases of skeletal muscle, paraplegia or quadriplegia, vegetarian diet, rapidly changing kidney function, and calculation of the dose of potentially toxic drugs that are excreted by the kidneys. 56 Concerning GFR Guidelines for Americans: Normal function or mild renal disease, if clinically at risk: >/=60 mL/min Moderately decreased: 30-59 Severely decreased: 15-29 Renal failure: <15 57 For -Brazilian patients multiply result by 1.180 58 For -Brazilian patients multiply result by 1.180 59 Cytology Laboratory [address] [place] [address], [address] [place] [address] CYTOLOGY REPORT Name: Carmen Siegel Accession # : [id number] : 1950 (Age: 62) Sex: F Location: [facility] Med. Rec. # [id number] Date Collected: 08/11/2012 Billing #: [id number] Date Received : 08/11/2012 Requisition # [id number] Physician(s): LETICIA KINCAID DO Source of Specimen: ENDOCERVICAL/THIN PREP Clinical Information: Date of Last Menstrual Period: 20 yrs ago Menstrual History: Post menopausal: 20 yrs ago Specimen Adequacy: SATISFACTORY FOR EVALUATION. ADEQUATE ENDOCERVICAL/TRANSFORMATION ZONE. SCANT CELLULARITY. General Categorization: NEGATIVE FOR INTRAEPITHELIAL LESION OR MALIGNANCY. tfn Electronic Signature BRANDON Ch (ASCP) Reported: 08/15/2012 [facility] HPV High Risk Date Ordered: 08/14/2012 Status: Signed Out Date Reported: 08/15/2012 High Risk NEGATIVE (HPV types 16, 18, 31, 33, 35, 39 , 45, 51, 52, 56, 58, 59, 66, 68) Cervista HPV HR Electronic Signature Pebbles Rene [facility]ology [facility] HPV Low Risk Date Ordered: 08/14/2012 Status: Signed Out Date Reported: 08/15/2012 Low Risk QUANTITY NOT SUFFICIENT (HPV types 6, 11) In situ hybridization Electronic Signature Cecil Morrissey MD [facility] Technical Laboratory [facility] ICD-9 Code(s) V72.31 60 For -Brazilian patients multiply result by 1.180 Procedures Date Code Description Status 01/23/2018 77493 Measure Blood Oxygen Level Single Determination Completed 09/08/2017 111569542 Bone Mineral Density Test Completed 07/21/2017 21685 Screening Hearing Test Completed 03/24/2016 07541 Electrocardiogram Complete Completed 12/08/2015 00488 X-Ray Knee Complete W/Obliques & Tunnel And/Or Completed Standing Views 09/11/2015 02030 Duplex Scan Extracranial Arteries, Complete Bilateral Completed Study 06/30/2015 09165 Admin Of Inj (Therapeutic Phrophylactic Or Diagnostic Completed Subq Inj 06/26/2015 57278 Measure Blood Oxygen Level Single Determination Completed 06/02/2015 35823 Admin Of Inj (Therapeutic Phrophylactic Or Diagnostic Completed Subq Inj 04/30/2015 87485 Admin Of Inj (Therapeutic Phrophylactic Or Diagnostic Completed Subq Inj 03/19/2015 49804 Admin Of Inj (Therapeutic Phrophylactic Or Diagnostic Completed Subq Inj 02/11/2015 60431 Admin Of Inj (Therapeutic Phrophylactic Or Diagnostic Completed Subq Inj 01/08/2015 73945 Admin Of Inj (Therapeutic Phrophylactic Or Diagnostic Completed Subq Inj 12/26/2014 [id number] Colonoscopy Completed 11/27/2014 45587 Admin Of Inj (Therapeutic Phrophylactic Or Diagnostic Completed Subq Inj 10/16/2014 65403 Admin Of Inj (Therapeutic Phrophylactic Or Diagnostic Completed Subq Inj 09/12/2014 09437 Admin Of Inj (Therapeutic Phrophylactic Or Diagnostic Completed Subq Inj 08/21/2014 00125 Admin Of Inj (Therapeutic Phrophylactic Or Diagnostic Completed Subq Inj 07/31/2014 45536 Admin Of Inj (Therapeutic Phrophylactic Or Diagnostic Completed Subq Inj 07/16/2014 76315 Bone Density Study (Dexa) Axial Skeleton Completed (Hips,Pelvis,Spine) 07/16/2014 [id number] Bone Mineral Density Test Completed 04/03/2014 38352 Measure Blood Oxygen Level Single Determination Completed 04/03/2014 00963 X-Ray Chest Two Views Frontal & Lateral Completed 02/12/2013 18968 Electrocardiogram Complete Completed 07/03/2012 44288 Bone Density Study, Single Photon Absorptiometry Completed 07/03/2012 52166 Mammography Unilateral Completed 04/05/2012 82753 Visual Screening Test Completed 04/05/2012 75810 Screening Hearing Test Completed Encounters Type Date Location Provider Dx Diagnosis Office Visit 09/22/2017 Leticia Ochoa DO J06.9 Acute upper 9:45a respiratory infection, unspecified G47.00 Insomnia, unspecified Z68.39 Body mass index (BMI) 39.0-39.9, adult Office Visit 07/21/2017 10:30a [facility] Leticia Kincaid DO Z00.00 Encntr for general adult medical exam w/o abnormal findings I10 Essential (primary) hypertension D51.8 Other vitamin B12 deficiency anemias R25.2 Cramp and spasm J41.8 Mixed simple and mucopurulent chronic bronchitis G43.109 Migraine with aura, not intractable, w/o status migrainosus R93.0 Abnormal findings on dx imaging of skull and head, NEC E78.2 Mixed hyperlipidemia E87.6 Hypokalemia M17.12 Unilateral primary osteoarthritis, LEFT knee K21.9 Gastro-esophageal reflux disease without esophagitis R20.9 Unspecified disturbances of skin sensation J30.9 Allergic rhinitis, unspecified E66.09 Other obesity due to excess calories G47.00 Insomnia, unspecified M85.9 Disorder of bone density and structure, unspecified K42.9 Umbilical hernia without obstruction or gangrene Z68.39 Body mass index (BMI) 39.0-39.9, adult Office Visit 01/12/2017 8:00a [facility] Leticia Kincaid DO I10 Essential ( primary) hypertension D51.8 Other vitamin B12 deficiency anemias G43.109 Migraine with aura, not intractable, w/o status migrainosus R93.0 Abnormal findings on dx imaging of skull and head, NEC E78.2 Mixed hyperlipidemia E87.6 Hypokalemia M17.12 Unilateral primary osteoarthritis, LEFT knee K21.9 Gastro-esophageal reflux disease without esophagitis R20.9 Unspecified disturbances of skin sensation J30.9 Allergic rhinitis, unspecified E66.09 Other obesity due to excess calories G47.00 Insomnia, unspecified M85.9 Disorder of bone density and structure, unspecified J41.8 Mixed simple and mucopurulent chronic bronchitis R25.2 Cramp and spasm K42.9 Umbilical hernia without obstruction or gangrene Office Visit 09/24/2016 4:00p [facility] Leticia Kincaid DO R51 Headache R41.840 Attention and concentration deficit G43.109 Migraine with aura, not intractable, w/o status migrainosus R93.0 Abnormal findings on dx imaging of skull and head, NEC E78.2 Mixed hyperlipidemia I10 Essential (primary) hypertension Office Visit 09/17/2016 11:15a [facility] Leticia Kincaid DO R51 Headache R41.840 Attention and concentration deficit G43.109 Migraine with aura, not intractable, w/o status migrainosus Office Visit 07/12/2016 8:00a [facility] Leticia Kincaid DO I10 Essential ( primary) hypertension D50.9 Iron deficiency anemia, unspecified D51.9 Vitamin B12 deficiency anemia, unspecified E87.6 Hypokalemia M17.12 Unilateral primary osteoarthritis, LEFT knee K21.9 Gastro-esophageal reflux disease without esophagitis R20.9 Unspecified disturbances of skin sensation J30.9 Allergic rhinitis, unspecified E66.09 Other obesity due to excess calories G47.00 Insomnia, unspecified M85.9 Disorder of bone density and structure, unspecified J41.8 Mixed simple and mucopurulent chronic bronchitis R25.2 Cramp and spasm F43.21 Adjustment disorder with depressed mood K42.9 Umbilical hernia without obstruction or gangrene Office Visit 04/16/2016 10:15a [facility] Leticia Kincaid DO I10 Essential ( primary) hypertension M17.12 Unilateral primary osteoarthritis, LEFT knee E87.6 Hypokalemia Office Visit 03/24/2016 10:30a [facility] Leticia Kincaid DO Z01.810 Encounter for preprocedural cardiovascular examination M17.12 Unilateral primary osteoarthritis, LEFT knee I10 Essential (primary) hypertension D50.9 Iron deficiency anemia, unspecified D51.9 Vitamin B12 deficiency anemia, unspecified R09.82 Postnasal drip K21.9 Gastro-esophageal reflux disease without esophagitis R20.9 Unspecified disturbances of skin sensation J30.9 Allergic rhinitis, unspecified E66.09 Other obesity due to excess calories G47.00 Insomnia, unspecified M85.9 Disorder of bone density and structure, unspecified J41.8 Mixed simple and mucopurulent chronic bronchitis R25.2 Cramp and spasm Office Visit 01/05/2016 8:30a [facility] Leticia Kincaid DO I10 Essential ( primary) hypertension D50.9 Iron deficiency anemia, unspecified D51.9 Vitamin B12 deficiency anemia, unspecified M17.12 Unilateral primary osteoarthritis, LEFT knee R09.82 Postnasal drip K21.9 Gastro-esophageal reflux disease without esophagitis R20.9 Unspecified disturbances of skin sensation J30.9 Allergic rhinitis, unspecified E66.09 Other obesity due to excess calories G47.00 Insomnia, unspecified M85.9 Disorder of bone density and structure, unspecified J41.8 Mixed simple and mucopurulent chronic bronchitis R25.2 Cramp and spasm Office Visit 12/08/2015 1:30p [facility] Sharon Hickman, M25.562 Pain in LEFT knee PA Office Visit 09/10/2015 1:30p [facility] Leticia Kincaid DO G43.109 Migraine with aura, not intractable, w/o status migrainosus H54.7 Unspecified visual loss Office Visit 06/26/2015 8:00a [facility] Leticia Kincaid DO I10 Essential ( primary) hypertension D50.9 Iron deficiency anemia, unspecified D51.9 Vitamin B12 deficiency anemia, unspecified R09.82 Postnasal drip K21.9 Gastro-esophageal reflux disease without esophagitis R20.9 Unspecified disturbances of skin sensation J30.9 Allergic rhinitis, unspecified E66.09 Other obesity due to excess calories G47.00 Insomnia, unspecified M85.9 Disorder of bone density and structure, unspecified J41.8 Mixed simple and mucopurulent chronic bronchitis R25.2 Cramp and spasm Office Visit 05/19/2015 1:45p [facility] Leticia Kincaid DO J20.9 Acute bronchitis, unspecified Office Visit 12/18/2014 8:15a [facility] Leticia Kincaid DO I10 Essential ( primary) hypertension D50.9 Iron deficiency anemia, unspecified D51.9 Vitamin B12 deficiency anemia, unspecified R09.82 Postnasal drip K21.9 Gastro-esophageal reflux disease without esophagitis R20.9 Unspecified disturbances of skin sensation J30.9 Allergic rhinitis, unspecified E66.09 Other obesity due to excess calories G47.00 Insomnia, unspecified M85.9 Disorder of bone density and structure, unspecified J41.8 Mixed simple and mucopurulent chronic bronchitis R25.2 Cramp and spasm Office Visit 09/02/2014 10:00a [facility] Leticia Kincaid DO 281.1 Vitamin B12 Deficiency Anemia Other 280.9 Iron Deficiency Anemia Unspec 401.1 Hypertension Benign Office Visit 06/14/2014 8:30a [facility] Leticia Kincaid DO 784.91 Postnasal Drip 401.1 Hypertension Benign 530.81 Esophageal Reflux 782.0 Skin Sensation Disturbance 477.9 Rhinitis Allergic Cause Unspec 278.00 Obesity Unspec 780.52 Sleep Disturbance, Insomnia Unspecified 733.90 Bone & Cartilage Disorder Unspec 491.8 Bronchitis Other Chronic 729.82 Cramp Of Limb V58.69 Medications Manager Chemical (Current) Use Encounter Office Visit 04/03/2014 2:00p [facility] Leticia Kincaid DO 786.2 Cough 466.0 Bronchitis Acute 079.99 Viral Infection Unspec Plan of Treatment Future Appointment(s):07/24/2018 7:55 am - Schedule, [facility]2018 2:00 pm - Leticia Kincaid DO [facility]01/23/2018 - Leticia Kincaid DOR05 [id number] Essential (primary) hypertensionNew Labs:CBC with Auto Diff-fcmg, Scheduled: 07/24/18Basic (BMP), Scheduled: 07/24/18TSH, Scheduled: Lipid Treatment, Scheduled: 07/24/18Follow up:Get fasting lab work done in 6 months, then see me a few days later for an annual physical.D51.8 Other vitamin B12 deficiency anemiasNew Labs:Vitamin B12, Scheduled: 07/24/18R25.2 Cramp and spasmNew Labs:CPK, Scheduled: 07/24/18J41.8 Mixed simple and mucopurulent chronic oecrbzmxvmV02.109 Migraine with aura, not intractable, without status axqrkoesF51.0 Abnormal findings on diagnostic imaging of skull and head, nE78.2 Mixed vegxapgzqlsikdU29.6 DlmyrqevhbjT61.12 Unilateral primary osteoarthritis, LEFT kneeK21.9 Gastro-esophageal reflux disease without gthvplmvxgvO77.9 Unspecified disturbances of skin mvsaayrfoJ27.9 Allergic rhinitis, wycvpztdrbjG73.09 Other obesity due to excess kwdzyjlrK27.00 Insomnia, fdxclgzjkxvQ98.9 Disorder of bone density and structure, hhlrypeamrpI17.9 Umbilical hernia without obstruction or vsjdbjljL80.39 Body mass index (BMI) 39.0-39.9, adultAllNew Medication:Levocetirizine Dihydrochloride 5 mg - 1 po qhs
[2018-02-19 12:29] VITALS: BP 151/84
[2018-02-19] MEDS ORDERED: predniSONE TAB* 20 MG PO ONE (12:43)
[2018-02-19] MEDS ORDERED: Albuterol 2.5 MG/3 ML NEB.SOL* (0.083%) INH ONE (12:43)
--- NOTE | 2018-02-19 12:43 | UC ---
UC General HPI - HPI Summary HPI Summary: 6 day hx worsening cough, chest congestion, sob and some wheezing. head congestion at onset, none now. no cp but mm's sore from cough. - History of Current Complaint Chief Complaint: UCRespiratory Stated Complaint: CONGESTION, COUGH Time Seen by Provider: 02/19/18 12:36 Hx Obtained From: Patient Onset/Duration: Gradual Onset Timing: Constant Pain Intensity: 0 Associated Signs & Symptoms: Positive: Cough, Fever - at onset, SOB, Wheezing. Negative: Chest Pain - Allergy/Home Medications Allergies/Adverse Reactions: Allergies Allergy/AdvReac Type Severity Reaction Status Date / Time MS Soy Allergy [Soy Allergy] Allergy Mild Itching Verified 09/20/16 11:42 MS Erythromycin AdvReac Severe Edema Verified 09/20/16 11:42 [Erythromycin] MS Quinolones [Quinolones] AdvReac Agitation Verified 09/20/16 11:42 PMH/Surg Hx/FS Hx/Imm Hx Cardiovascular History: Hypertension Respiratory History: Asthma - Surgical History Surgical History: Yes Surgery Procedure, Year, and Place: tonsilectomy 1957. LEFT TOTAL KNEE REPLACEMENT-03/2016 AND MANIPULATION IN JUNE - Family History Known Family History: Positive: Non-Contributory - Social History Alcohol Use: Rare Alcohol Amount: 3 PER WEEK Substance Use Type: None Smoking Status (MU): Heavy Every Day Tobacco Smoker Amount Used/How Often: 2 PPD X 20 YEARS Have You Smoked in the Last Year: No When Did the Patient Quit Smoking/Using Tobacco: 26 YEARS AGO - Immunization History Most Recent Influenza Vaccination: 11/2015 Most Recent Tetanus Shot: within 10 years Most Recent Pneumonia Vaccination: 3 years ago Vaccination Up to Date: Yes Review of Systems All Other Systems Reviewed And Are Negative: Yes Constitutional: Positive: Negative Skin: Positive: Negative Eyes: Positive: Negative ENT: Positive: Negative Respiratory: Positive: Shortness Of Breath, Cough Cardiovascular: Positive: Negative Gastrointestinal: Positive: Negative Genitourinary: Positive: Negative Motor: Positive: Negative Neurovascular: Positive: Negative Musculoskeletal: Positive: Negative Neurological: Positive: Negative Psychological: Positive: Negative Physical Exam Triage Information Reviewed: Yes Appearance: Well-Appearing Vital Signs: Initial Vital Signs Temp 97.3 F 02/19/18 12:27 Pulse 74 02/19/18 12:27 Resp 16 02/19/18 12:27 BP 151/84 02/19/18 12:27 Pulse Ox 99 02/19/18 12:27 Vital Signs Reviewed: Yes Eyes: Positive: Conjunctiva Clear ENT: Positive: Pharynx normal, TMs normal. Negative: Nasal congestion, Nasal drainage Neck: Positive: Supple, Nontender, No Lymphadenopathy Respiratory: Positive: No respiratory distress, Decreased breath sounds, Other: - Deep-harsh cough Cardiovascular: Positive: RRR, No Murmur Abdomen Description: Positive: Nontender, No Organomegaly, Soft Bowel Sounds: Positive: Present Musculoskeletal: Positive: ROM Intact Neurological: Positive: Alert Psychological: Positive: Age Appropriate Behavior Skin Exam: Normal Diagnostics - Radiology No standard instances Radiology Interpretation Completed By: Radiologist - CXR=No radiographic evidence of acute cardiopulmonary disease. Re-Evaluation - Re-Evaluation First Eval Re-Evaluation Time: 13:18 Change: Improved - BETTER AERATION WITH LESS COUGH Course/Dx - Differential Dx - Multi-Symptom Differential Diagnoses: Other - PNEUMONIA, BRONCHITIS, ASTHMA - Diagnoses Provider Diagnosis: Asthma attack Discharge - Sign-Out/Discharge Documenting (check all that apply): Patient Departure All imaging exams completed and their final reports reviewed: Yes - Discharge Plan Condition: Stable Disposition: HOME Prescriptions: Albuterol 2.5MG/3ML (0.083%)* [Ventolin 2.5 MG/3 ML NEB.TYRONE*] 2.5 mg INH Q6H #1 box Azithromycin TAB* [Zithromax TAB (Z-WILD) 250 mg #6 tabs] 2 tab PO .TODAY, THEN 1 DAILY #1 wild predniSONE [Prednisone 20 MG TAB] 40 mg PO DAILY 4 Days #8 tablet Patient Education Materials: Asthma (ED) Referrals: Dominick Galvan DO [Primary Care Provider] - - Billing Disposition and Condition Condition: STABLE Disposition: Home
== END 2018-02-19 13:30 | disposition home or self-care (01) ==
LOC: UCCORT 11:48
DX: J45.909 Unspecified asthma, uncomplicated (principal); Z88.1 Allergy status to other antibiotic agents; Z88.3 Allergy status to other anti-infective agents; I10 Essential (primary) hypertension; F17.210 Nicotine dependence, cigarettes, uncomplicated
CPT/HCPCS: 71046; 99212; G0463; J7512

== ENCOUNTER 2018-08-08 05:33 | Inpatient (IN) | payer OTHER ==
--- NOTE | 2018-07-28 10:41 | HP ---
HISTORY AND PHYSICAL: DATE OF SURGERY: 08/08/18 DATE OF OFFICE VISIT: 07/28/18 SURGEON: Myriam Munoz MD * (DICTATED BY JORGE CORTES) PROCEDURE: Right total knee arthroplasty. CHIEF COMPLAINT: Right knee pain. HISTORY OF PRESENT ILLNESS: Ms. Siegel is a 68-year-old female with continued complaints of right knee pain. She has failed conservative treatment and elected to proceed with the right total knee arthroplasty. PAST MEDICAL HISTORY: Hypertension, GERD, depression, anxiety, vitamin B12 deficiency, and asthma. PAST SURGICAL HISTORY: Left total knee arthroplasty and tonsillectomy. CURRENT MEDICATIONS: 1. Lunesta 3 mg q.h.s. 2. Singular 10 mg daily. 3. Chlorthalidone 25 mg daily. 4. Fish oil. 5. Potassium. 6. Cataplex B and F. 7. Aspirin 81 mg a day. 8. Zyrtec. ALLERGIES: OMEPRAZOLE, SYMBICORT, VENTOLIN, PNEUMOTROPHIN, LACTIC ACID, YEAST, ZYPAN, TURMERIC, IBUPROFEN, CARDIOTROPHIN, MIN-CHEX, and CALCIUM. Allergies to SOYBEAN containing products. ERYTHROMYCIN, FLUOROQUINOLONE and SEASONAL ALLERGIES. FAMILY HISTORY: Coronary artery disease, lung cancer, and Alzheimer's. SOCIAL HISTORY: She is a 68-year-old female. She lives with her sister. She does not smoke or use drugs. She uses alcohol rarely. REVIEW OF SYSTEMS: A complete 14-point review of systems was reviewed with the patient. It was positive for GERD and asthma with occasional shortness of breath. She denies a history of DVT, PE, hepatitis, HIV or anesthesia problems. PHYSICAL EXAMINATION GENERAL: She is a well developed, well nourished, in no acute distress. VITAL SIGNS: She stands 4 feet 11 inches tall, weights 215 pounds. Her blood pressure is 132/86, her heart rate is 68. HEENT: Normocephalic, atraumatic. NECK: Supple. No palpable lymph nodes. PULMONARY: The lungs are clear to auscultation bilaterally. CARDIAC: Regular rate and rhythm. Strong S1 and S2. ABDOMEN: Soft, nontender, and nondistended. NEUROLOGICAL: She is alert and oriented x3. MUSCULOSKELETAL: Right lower extremity, the skin is intact. There are no open wounds or abrasions. She has 2+ dorsalis pedis pulse. She is able to dorsiflex and plantarflex. Range of motion is 10 to 120 degrees of flexion with patellofemoral crepitus. She has intact sensation. ASSESSMENT AND PLAN: Ms. Siegel is a 68-year-old female with end-stage osteoarthritis of the right knee. She has failed conservative treatment and elected to proceeded with a right total knee arthroplasty. The surgery is scheduled for 08/08/[address] Munoz discussed the risks and benefits of the surgery at today's visit and all of her questions were answered. She will follow up with Dr. Munoz 2 weeks after the surgery. JORGE CORTES [id number] #: [id number] MTDD
[~2018-08-08 05:33] MED LIST changes: +Buffered Lidocaine 1% SYRIN* 1 ML/SYRINGE INTRADERM ONE; -Famotidine IV* 10 MG/ML 2 ML (20 mg) IV ONE; -Metoclopramide TAB* 10 MG PO ONE; +Tranexamic Acid 1,000 MG in NS 0.9% 50 ML* (outpatient use) IV SCH
--- OUTSIDE RECORDS SUMMARY | 2018-08-08 05:37 | XMS REPORT | Continuity of Care Document ---
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 Dominick Galvan DO Primary Care Physician Unavailable Payers Date Identification Numbers Payment Provider Subscriber Policy Number: [id number] Lifetime Benefit Solution Carmen Siegel PayID: [facility] [address] [address] [place] [address] Family History Date Family Member(s) Observation Comments Father Dementia (89) Mother Lung Cancer (72) Heavy Smoker Social History Type Date Description Comments Sex Unknown Marital Status Patient is Home Environment Lives With sister Occupation Currently Working [employer] Tobacco Use Start: Unknown End: Former Cigarette Smoker Unknown ETOH Use Occasionally consumes alcohol Recreational Drug Use Denies Drug Use Tobacco Use Start: Unknown End: Patient is a former SMOKED 18-38 QUIT AT Unknown smoker AGE 40 Smoking Status Reviewed: 07/05/18 Patient is a former SMOKED 18-38 QUIT AT smoker AGE 40 Allergies, Adverse Reactions, Alerts Active Allergies Reaction Severity Comments Date Soy Everything Soy Related 04/06/2018 Erythromycin 04/06/2018 Medications Active Medications SIG Qnty Indications Ordering Date Provider Symbicort inhale two puffs 30.6gm Armen Villafana MD 07/05/2018 80-4.5mcg/Act by mouth twice a Aerosol day . rinse mouth after use Ventolin HFA take 2 puffs 8gm Armen Villafana MD 04/14/2018 108(90Base) every 6 hours as mcg/Act Aerosol needed for shortness of breath. Omeprazole take 1 tablet 90caps K21.9 Armen Villafana MD 04/06/2018 40mg Capsules daily. Fish Sabrina 1300 takes 4 Unknown daily Cataplex 3 daily Unknown Trace Minerals B12 3 daily Unknown Multizyme 3 daily Unknown Cardiovid Plus 8 daily Unknown Capsules Ibuprofen 200 4 tabs by daily Unknown 200mg Tablets Potassium Chloride 2 by mouth every Unknown Guillermina ER day 20Meq Tablets ER Lunesta 1 tab by mouth at Unknown 3mg Tablets bedtime as needed Chlorthalidone 1 by mouth every Unknown 25mg day Tablets Singulair 1 by mouth every Unknown 10mg Tablets day History Medications Symbicort inhale two puffs 10.200gm Armen Villafana, 06/07/2018 - by mouth twice a 07/05/2018 160-4.5mcg/Act day Aerosol Spiriva Respimat take 2 puffs once 4gm J41.0 Armen Villafana, 04/06/2018 - daily. 05/16/2018 2.5mcg/Act Aerosol Fluticasone spray 2 sprays in 16units J30.89 Armen Villafana, 04/06/2018 - Propionate each nostril Unknown 50mcg/Act every day Suspension Spiriva Handihaler inhale the Unknown - contents of one 06/02/2018 18mcg Capsules capsule via handihaler by mouth every day Fish Oil Double actually taking Unknown - Strength 1300 4 daily Unknown 1200mg Capsules B6 Natural with iodine 3 Unknown - 100mg daily Unknown Tablets Advair Diskus take 1 puff twice 1month Armen Villafana, - daily. 06/07/2018 250-50mcg/Dose Aerosol Vital Signs Date Vital Result Comment 07/05/2018 2:37pm BP Systolic Sitting Left Arm 114 mmHg BP Diastolic Sitting Left Arm 60 mmHg Heart Rate 71 /min Respiratory Rate 16 /min Height 62 inches 5'2" Weight 219.00 lb BMI (Body Mass Index) 40.1 kg/m2 BSA (Body Surface Area) 1.99 m2 [place] body weight in kilograms 50 kg O2 % BldC Oximetry 95 % ra 05/04/2018 3:09pm BP Systolic Sitting Left Arm 124 mmHg BP Diastolic Sitting Left Arm 84 mmHg Heart Rate 73 /min Respiratory Rate 18 /min Height 62 inches 5'2" Weight 219.00 lb BMI (Body Mass Index) 40.1 kg/m2 BSA (Body Surface Area) 1.99 m2 [place] body weight in kilograms 50 kg O2 % BldC Oximetry 93 % Ora 04/06/2018 1:22pm BP Systolic Sitting Left Arm 150 mmHg BP Diastolic Sitting Left Arm 72 mmHg Heart Rate 80 /min Respiratory Rate 18 /min Height 62 inches 5'2" Weight 218.00 lb BMI (Body Mass Index) 39.9 kg/m2 BSA (Body Surface Area) 1.98 m2 [place] body weight in kilograms 50 kg O2 Saturation Level with Exercise 96 % Results Test Date Facility Test Result H/L Range Note Antineutrophil [facility] Cytoplasmic <1:20 Neg:<1:20 1 Cytoplasmic AB [address] (C-Anca) titer [place], [place] [id number] [phone] Perinuclear (P-Anca) <1:20 titer Neg:<1:20 2 Atypical pANCA <1:20 titer Neg:<1:20 3 Comprehensive Linda 07/03/2018 CRM Anti-Dna <1 IU/mL 0-[address] [place] [address] (Pbiupi) [phone] SM Antibody <0.2 AI 0.0-0.9 PODIATRIC MEDICINE PROFESSOR Antibody <0.2 AI 0.0-0.9 Sjogrens Antibodies (Ssa) <0.2 AI 0.0-0.9 Antichromatin Antibodies 0.2 AI 0.0-0.9 Fadumo-1 Antibody <0.2 AI 0.0-0.9 Sjogrens Antibodies (SSB) <0.2 AI 0.0-0.9 Centromere B Antibodies < 0.2 AI 0.0-0.9 Scleroderma Antibodies, SCL-70 0.7 AI 0.0-0.9 See below: . 5 Laboratory 07/03/2018 CRM Anti-myeloperoxidase < 9.0 0.0-9.0 6 test finding [address] (Mpo) Abs U/[place] [address] [phone] Allergens,Zon 04/12/2018 [facility] mRast Class (Text Only) (SEE 7, 8 e [address] NOTE) [place] [address] [phone] D Pteronyssinus <0.10 kU/L Class 0 D Farinae Mite <0.10 kU/L Class 0 Cat Hair/Dander <0.10 kU/L Class 0 Dog Hair/Dander <0.10 kU/L Class 0 Bluegrass,[place] <0.10 kU/L Class 0 Bermuda Grass <0.10 kU/L Class 0 Bahia Grass <0.10 kU/L Class 0 Cockroach,Filipino <0.10 kU/L Class 0 Penicillium Not <0.10 kU/L Class 0 Cladosporium Herbarum <0.10 kU/L Class 0 Apergillis Fumigatus Ige <0.10 kU/L Class 0 Mucor Racemosus <0.10 kU/L Class 0 Alternaria Alternata <0.10 kU/L Class 0 Stemphylium Bot <0.10 kU/L Class 0 Birch,White <0.10 kU/L Class 0 [place],White <0.10 kU/L Class 0 Elm,Filipino (White) <0.10 kU/L Class 0 Brian,White <0.10 kU/L Class 0 Hazelnut Tree T004 Ige <0.10 kU/L Class 0 [place],White <0.10 kU/L Class 0 Taswell,White <0.10 kU/L Class 0 Lyons,Mountain <0.10 kU/L Class 0 Ragweed,Short/ <0.10 kU/L Class 0 Mugwort <0.10 kU/L Class 0 Plantain,Romansh <0.10 kU/L Class 0 Pigweed,Rough <0.10 kU/L Class 0 Sheep [place] (DO <0.10 kU/L Class 0 Nettle <0.10 kU/L Class 0 Maple/Greeley Ige T001 <0.10 kU/L Class 0 CBC W/Automated Diff 04/12/2018 [facility] White Blood 8.8 K/uL N 3.1-10.[address] [place] [address] [phone] Red Blood Count 5.21 M/uL N 3.90-5.40 Hemoglobin 12.5 gm/dL N 11.6-15.8 Hematocrit 38.8 % N 36.0-46.1 Mean Cell Volume 74.5 fl Low 80.9-99.0 Mean Corpuscular HGB 24.0 pg Low 25.9-32.7 Mean Corpuscular HGB Conc 32.2 g/dL N 30.8-34.3 Platelet Count 220 K/uL N 155-360 Red Cell Distri Width SD 49.2 fl High 36-47 Red Cell Distri Width %CV 18.7 % High 11.7-14.4 Mean Platelet Volume 11.0 fL N 8.9-12.4 Neut% 58.4 % N 40.4-72.8 Lymph % 25.1 % N 20.0-42.0 [facility] % 7.9 % N 4.3-13.2 Eo% 8.1 % High 0.0-6.6 Bas% 0.5 % N 0.0-1.1 Neut# 5.13 K/uL N 1.8-7.0 Lymph # 2.20 K/uL N 1.0-4.0 [facility] # 0.69 K/uL N 0.3-0.9 Eos # 0.71 K/uL High 0.0-0.5 Baso # 0.04 K/uL N 0.0-0.1 Laboratory test 04/12/2018 [facility] Immunoglobulin 9 IU/mL 0-100 [address],[place] [address] [phone] Laboratory test 01/16/2018 N2N/CCD Import Alt 21 U/L 3-42 finding Ast 23 U/L 8-42 CPK 105 U/L 12-199 Chol/ HDL Ratio 3.9 ratio 3.7-5.6 Cholesterol 209 mg/dL High 50-199 HDL 53 mg/dL 35-85 10 LDL (Calc) 136 mg/dL High 20-99 11 TSH 3.83 uIU/mL 0.35-4.94 Triglycerides 97 mg/dL 30-200 VLDL 19 mg/dL 2-29 Vitamin B12 522 pg/mL 180-914 Basic (BMP) 01/16/2018 N2N/CCD Import Carole Egfr >60 12 Anion Gap 12 mmol/L 5-15 13 BUN 8 mg/dL 6-26 Calcium 9.3 mg/dL 8.5-10.2 Carbon Dioxide 27 mmol/L 24-34 Chloride# 101 mmol/L 97-110 14 Creatinine 0.8 mg/dL 0.5-1.4 Glucose 105 mg/dL 70-105 Non Carole Egfr >60 15 Potassium 3.8 mmol/L 3.5-5.2 Sodium 140 mmol/L 135-146 16 CBC with Auto Diff-fcmg 01/16/2018 N2N/CCD Import Abs Basophils 0.0 K/uL 0-0.3 Abs Eosinophils 0.3 K/uL 0-0.5 Abs Lymphocytes 2.3 K/uL 0.8-5.5 Abs Monocytes 0.6 K/uL 0.1-1 Abs Neutrophils 3.5 K/uL 2.1-8 Basophil 0.7 % 0-4 Eosinophil 4.8 % 0-5 Hematocrit 38.9 % 36-47 Hemoglobin 12.3 gm/dL 12-16 Lymphocyte 34.4 % 16-52 MCH 23.8 pg Low 27-32 MCHC 31.7 g/dL Low 32-36 MCV 75.3 fL Low 80-97 MPV 9.0 FL 7.1-10.7 Monocyte 8.6 % 2-10 Neutrophil 51.5 % 35-75 PLT Count 226 K/ul 140-400 RBC 5.17 M/uL 4-5.4 RDW 18.7 % High 11.5-14.5 WBC 6.7 K/uL 4.1-11 Laboratory test finding 07/15/2017 N2N/CCD Import Alt 28 U/L 3-42 Ast 25 U/L 8-42 CPK 80 U/L 12-199 Chol/ HDL Ratio 4.0 ratio 3.7-5.6 Cholesterol 240 mg/dL High 50-199 HDL 61 mg/dL 35-85 17 LDL (Calc) 156 mg/dL High 20-99 18 TSH 3.07 uIU/mL 0.35-4.94 Triglycerides 120 mg/dL 30-200 VLDL 24 mg/dL 2-29 Vitamin B12 443 pg/mL 180-914 Basic (BMP) 07/15/2017 N2N/CCD Import Carole Egfr >60 19 Anion Gap 10 mmol/L 5-15 20 BUN 9 mg/dL 6-26 Calcium 9.0 mg/dL 8.5-10.2 Carbon Dioxide 29 mmol/L 24-34 Chloride# 108 mmol/L 97-110 21 Creatinine 0.8 mg/dL 0.5-1.4 Glucose 82 mg/dL 70-105 Non Carole Egfr >60 22 Potassium 3.3 mmol/L Low 3.5-5.2 Sodium 147 mmol/L High 135-146 23 CBC With Auto Diff 07/15/2017 N2N/CCD Import Abs Basophils 0.0 K/uL 0- 0.3 Abs Eosinophils 0.6 K/uL High 0-0.5 Abs Lymphocytes 2.0 K/uL 0.8-5.5 Abs Monocytes 0.6 K/uL 0.1-1 Abs Neutrophils 3.0 K/uL 2.1-8 Basophil 0.8 % 0-4 Eosinophil 9.7 % High 0-5 Hematocrit 43.1 % 36-47 Hemoglobin 14.7 gm/dL 12-16 Lymphocyte 31.9 % 16-52 MCH 29.7 pg 27-32 MCHC 34.1 g/dL 32-36 MCV 87.0 fL 80-97 MPV 9.3 FL 7.1-10.7 Monocyte 9.6 % 2-10 Neutrophil 48.0 % 35-75 PLT Count 172 K/ul 140-400 RBC 4.95 M/uL 4-5.4 RDW 15.3 % High 11.5-14.5 WBC 6.2 K/uL 4.1-11 1 D72.1 2 The presence of positive fluorescence exhibiting P-ANCA or C-ANCA patterns alone is not specific for the diagnosis of Nicho's Granulomatosis (WG) or microscopic polyangiitis. Decisions about treatment should not be based solely on ANCA IFA results. The International ANCA Group Consensus recommends follow up testing of positive sera with both WI- 3 and MPO-ANCA enzyme immunoassays. As many as 5% serum samples are positive only by EIA. Ref. AM J Clin Pathol 1999;111:507-513. 3 The atypical pANCA pattern has been observed in a significant percentage of patients with ulcerative colitis, primary sclerosing cholangitis and autoimmune hepatitis. 4 Negative <5 Equivocal 5 - 9 Positive >9 5 Autoantibody Disease Association Condition Frequency --------- Antinuclear Antibody, SLE, mixed connective Direct (LINDA-D) tissue diseases --------- dsDNA SLE 40 - 60% --------- Chromatin Drug induced SLE 90% SLE 48 - 97% --------- SSA (Ro) SLE 25 - 35% Sjogren's Syndrome 40 - 70% Lupus 100% --------- SSB (La) SLE 10% Sjogren's Syndrome 30% --------- Sm (anti-Devlin) SLE 15 - 30% --------- PODIATRIC MEDICINE PROFESSOR Mixed Connective Tissue Disease 95% (U1 nRNP, SLE 30 - 50% anti-ribonucleoprotein) Polymyositis and/or Dermatomyositis 20% --------- Scl-70 (antiDNA Scleroderma (diffuse) 20 - 35% topoisomerase) Crest 13% --------- Fadumo-1 Polymyositis and/or Dermatomyositis 20 - 40% --------- Centromere B Scleroderma - Crest variant 80% 6 Performed at: - [facility] [address] [id number] Spice Miller: Nuha Hernandez MD, Phone: [phone] Performed at: - [facility] [address] [id number] Spice Miller: Cesar De La Garza MD, Phone: [phone] J41.0 SIMPLE CHRONIC BRONCHITIS J30.89 8 Levels of Specific IgE Class Description of Class ----- < 0.10 0 Negative 0.10 - 0.31 0/I Equivocal/Low 0.32 - 0.55 I Low 0.56 - 1.40 II Moderate 1.41 - 3.90 III High 3.91 - 19.00 IV Very High 19.01 - 100.00 V Very High >100.00 Very High 9 Effective April 24, 2018 Immunoglobulin E, Total reference interval will be changing to: Age Male Female 1 day - 30 days Not estab. Not estab. 1 month - 5 months 1 - 30 0 - 16 6 months 2 - 52 1 - 24 7 months - 11 months 2 - 82 2 - 82 1 year 3 - 200 2 - 100 2 years - 3 years 6 - 366 4 - 227 4 years - 6 years 14 - 710 6 - 455 7 years - 9 years 19 - 893 12 - 708 10 years 22 - 1055 12 - 708 11 years 22 - 1055 12 - 796 12 years 16 - 810 12 - 796 13 years 19 - 893 9 - 681 14 years - 15 years 20 - 798 6 - 681 16 years 18 - 628 9 - 472 17 years - 100 years 6 - 495 6 - 495 Test(s) [id number] Cockroach, Filipino; [id number] Lori White were developed and had performance characteristics determined by [employer]. These tests have not been cleared or approved by the U.S. Food and Drug Administration. The FDA has determined that such clearance or approval is not necessary. These tests are used for clinical purposes. These should not be regarded as investigational or for research. Performed at: [address] [id number] Spice Miller: Cesar De La Garza MD, Phone: [phone] 10 Per NCEP ATP III Guidelines: Results lower than 40 mg/dL are suggestive of increased risk for coronary artery disease. Results > or=to 60 mg/dL are considered a negative risk factor. 11 Per NCEP ATP III Guidelines: Normal Population <130 Patients with medical conditions: CHD/DM Optimal: <100 Borderline high: 130-159 High: 160-189 Very high: >189 12 Concerning GFR Guidelines for Americans: Normal function or mild renal disease, if clinically at risk: >/=60 mL/min Moderately decreased: 30-59 Severely decreased: 15-29 Renal failure: <15 13 Updated Reference Range 14 Updated reference range on new analyzer 15 Concerning GFR Guidelines: Normal function or mild [...] drugs that are excreted by the kidneys. 16 Updated reference range on new analyzer 17 Per NCEP ATP III Guidelines: Results lower than 40 mg/dL are suggestive of increased risk for coronary artery disease. Results > or=to 60 mg/dL are considered a negative risk factor. 18 Per NCEP ATP III Guidelines: Normal Population <130 Patients with medical conditions: CHD/DM Optimal: <100 Borderline high: 130-159 High: 160-189 Very high: >189 19 Concerning GFR Guidelines for Americans: Normal function or mild renal disease, if clinically at risk: >/=60 mL/min Moderately decreased: 30-59 Severely decreased: 15-29 Renal failure: <15 20 Updated Reference Range 21 Updated reference range on new analyzer 22 Concerning GFR Guidelines: Normal function or mild [...] drugs that are excreted by the kidneys. 23 Updated reference range on new analyzer Procedures Date Code Description Status 04/12/2018 77519 Bronchospasm Provocation Evaluation Multi Spirometric Completed Determinati 04/12/2018 01691 Spirometry Completed Encounters Type Date Location Provider Dx Diagnosis Office Visit 05/04/2018 Pulmonology Armen Villafana MD J41.0 Simple chronic 2:45p bronchitis K21.9 Gastro-esophageal reflux disease without esophagitis J30.89 Other allergic rhinitis D72.1 Eosinophilia Office Visit 04/06/2018 1:00p Pulmonology Armen Villafana MD J41.0 Simple chronic bronchitis K21.9 Gastro-esophageal reflux disease without esophagitis J30.89 Other allergic rhinitis Plan of Treatment Future Appointment(s):12/05/2018 8:20 am - Malaika Mcguire PA at [facility]/ 15/2019 - Armen Villafana MDJ41.0 Simple chronic bronchitisComments:Combination of eosinophilic bronchitis, GERD, and allergies. Stop Spiriva. Continue with Symbicort.Follow up:5 kacbfaW76.9 Gastro-esophageal reflux disease without esophagitisComments:Continue Omeprazole 40 mg a day.J30.89 Other allergic rhinitisComments:Continue Singulair, nasal Fluticasone, Xyzal.D72.1 EosinophiliaComments:Negative LINDA and ANCA.AllNew Medication:Symbicort 80-4.5 mcg/Act - inhale two puffs by mouth twice a day . rinse mouth after use
[2018-08-08] MEDS ORDERED: Lactated Ringers 1000 ML Bag* 1,000 ML IV SCH (06:00)
[2018-08-08] MEDS ORDERED: celeCOXIB CAP* 200 MG PO ONE (06:00)
[2018-08-08] MEDS ORDERED: Gabapentin CAP(*) 300 MG PO ONE (06:00)
[2018-08-08] MEDS ORDERED: Dexamethasone IV* 4 MG/ML 1 ML (4 MG) IV SLOW PU ONE (06:00)
[2018-08-08] MEDS ORDERED: ROPIVACAINE 5 MG/ML 30 ML BTL (0.5%) ONE ×2 (06:33→07:19)
[2018-08-08] MEDS ORDERED: Buffered Lidocaine 1% SYRIN* 1 ML/SYRINGE INTRADERM ONE (06:36)
[2018-08-08] MEDS ORDERED: ceFAZolin 2 GM in NS PREMIX(*) 2 GM/100 ML BAG IVPB ONE (06:36)
[2018-08-08] MEDS ORDERED: Dexamethasone IV* 4 MG/ML 1 ML (4 MG) ONE (06:36)
[2018-08-08] MEDS ORDERED: celeCOXIB CAP* 200 MG ONE (06:36)
[2018-08-08] MEDS ORDERED: Gabapentin CAP(*) 300 MG ONE (06:58)
[2018-08-08] MEDS ORDERED: KETAMINE HCL* 50 MG/ML 10 ML VIAL ONE (07:01)
[2018-08-08] MEDS ORDERED: Bupivacaine 0.5% SDV PF* 30ML VIAL ONE (07:01)
[2018-08-08] MEDS ORDERED: Ondansetron INJ* 2 MG/ML VIAL ONE (07:01)
[2018-08-08] MEDS ORDERED: Propofol* 10 MG/ML 20 ML BTL ONE (07:01)
[2018-08-08] MEDS ORDERED: Midazolam* 1 MG/ML 5 ML VIAL (5 MG) ONE ×2 (07:01→08:24)
[2018-08-08] MEDS ORDERED: Phenylephrine 10 MG/ML VIAL* 1 ML VIAL ONE (07:03)
[2018-08-08] MEDS ORDERED: Lidocaine 2% PF * 5 ML VIAL ONE (08:19)
[2018-08-08] MEDS ORDERED: fentaNYL* 50 MCG/ML 2 ML VIAL (100 MCG VIAL) ONE (08:32)
[2018-08-08] MEDS ORDERED: Scopolamine 1.5 mg* PATCH TRANSDERM PRN (09:08)
[2018-08-08] MEDS ORDERED: DiMENhydriNATE IV* 50 MG/ML VIAL IV PUSH PRN (09:08)
[2018-08-08] MEDS ORDERED: HYDROmorphone INJ1* 1 MG/ML SYRINGE IV PRN (09:08)
[2018-08-08] MEDS ORDERED: Naloxone* 0.4 MG/ML 1 ML VIAL IV PRN (09:08)
[2018-08-08] MEDS ORDERED: Ondansetron INJ* 2 MG/ML VIAL IV PRN ×2 (09:08→10:29)
[2018-08-08] MEDS ORDERED: fentaNYL* 50 MCG/ML 2 ML VIAL (100 MCG VIAL) IV PRN (09:08)
[2018-08-08] MEDS ORDERED: oxyCODONE/Acetamin 5/325 MG* TAB PO PRN (10:29)
[2018-08-08] MEDS ORDERED: Cyclobenzaprine TAB* 10 MG PO PRN (10:29)
[2018-08-08] MEDS ORDERED: Bisacodyl SUPP* 10 MG SUPP PR PRN (10:29)
[2018-08-08] MEDS ORDERED: Polyethylene Glycol 3350* 17 GM PACKET PO PRN (10:29)
[2018-08-08] MEDS ORDERED: diPHENhydraMINE IV* 50 MG/ML 1 ml VIAL (BENADRYL) IV PRN (10:29)
[2018-08-08] MEDS ORDERED: Ondansetron TAB* 4 MG PO PRN (10:29)
[2018-08-08] MEDS ORDERED: Morphine 4 MG/ML VIAL (1 ml) 4 MG/ML VIAL IV PRN (10:29)
[2018-08-08] MEDS ORDERED: Magnesium Hydroxide LIQ* 30 ML UDC PO PRN (10:29)
[2018-08-08] MEDS ORDERED: Zolpidem TAB* 10 MG PO PRN (10:42)
[2018-08-08] MEDS ORDERED: Artificial Tears* 15 ML BTL BOTH EYES PRN (10:42)
[2018-08-08] MEDS ORDERED: Albuterol HFA INHALER* 8 gm MDI INH PRN (10:42)
[2018-08-08] MEDS ORDERED: Albuterol 2.5 MG/3 ML NEB.SOL* (0.083%) INH SCH (11:00)
[2018-08-08] MEDS: oxyCODONE/Acetamin 5/325 MG* TAB PO PRN ×3 (13:21→23:44)
[2018-08-08] MEDS: Lactated Ringers 1000 ML Bag* 1,000 ML IV SCH (13:22)
--- NOTE | 2018-08-08 13:23 | PN ---
Progress Note - Progress Note Date of Service: 08/08/18 Note: Patient seen at bedside s/p right total knee arthroplasty. She feels well, no knee pain. +DF right ankle. Sensation intact distally.
[2018-08-08] MEDS ORDERED: MAGNESIUM PO SCH (14:00)
[2018-08-08] MEDS: OMEGA PO SCH ×2 (14:08→17:16)
[2018-08-08] MEDS: FATTY ACIDS PO SCH ×2 (14:08→17:16)
[2018-08-08] MEDS: Acetaminophen TAB* 325 MG PO SCH ×2 (14:08→22:51)
[2018-08-08] MEDS: ceFAZolin 1 GM ADVAN(*) 1 GM in NS 0.9% 50 ML* 50 ML IVPB SCH ×2 (16:24→23:44)
[2018-08-08] MEDS: oxyCODONE TAB* 5 MG TAB PO PRN (16:25)
[2018-08-08] MEDS: Montelukast Sodium TAB* 10 MG PO SCH (17:24)
--- NOTE | 2018-08-08 19:07 | CONS ---
[facility] MEDICINE CONSULTATION REPORT: DATE OF CONSULT: 08/08/18 DATE OF ADMISSION: 08/08/18 PROVIDER: Magali Heath NP ATTENDING PHYSICIAN: Dr. Munoz.* CONSULTING PHYSICIAN: Dr. Pebbles Gaviria (dictated by Magali Heath NP). REASON FOR CONSULT: Hypertension, GERD. HISTORY OF PRESENT ILLNESS: Ms. Siegel is a 68-year-old female with past medical history significant for hypertension, GERD, depression, anxiety, and asthma, who presented to [facility] for elective right total knee arthroplasty with Dr. Munoz. Please see dictated H and P from JORGE Arboleda, for complete details. In brief, the patient had ongoing pain, failed conservative measures, therefore opted for right total knee arthroplasty with Dr. Munoz in the immediate postoperative period. The patient has no complaints. The patient denies any recent illnesses. Denies any fever, chills , chest pain, edema. Denies any cough, hemoptysis, shortness of breath. No nausea, vomiting, diarrhea, abdominal pain, hematuria, dysuria, focal weakness, or sensory loss. Denies any visual complaints, dysphagia, arthralgias, myalgias , rashes, lesions, or open sores. The patient does report she was recently treated for UTI and has been off antibiotics for approximately 4 days. Due to her history of hypertension, acid reflux and asthma, we were asked to see and evaluate to help comanage the patient's chronic medical conditions. PAST MEDICAL HISTORY: 1. Hypertension. 2. GERD. 3. Depression. 4. Anxiety. 5. Vitamin B12 deficiency. 6. Asthma. PAST SURGICAL HISTORY: 1. Left total knee arthroplasty. 2. Tonsillectomy. CURRENT MEDICATIONS: Include: 1. Lunesta 3 mg p.o. q.h.s. 2. Singulair 10 mg p.o. daily. 3. Chlorthalidone 25 mg p.o. daily. 4. Fish oil. 5. Ventolin inhaler p.r.n. rarely use. 6. Zipam 1 tab with meals 3 times a day. 7. Turmeric 1 tab t.i.d. 8. Potassium 20 mEq b.i.d. 9. [place]-3 fatty acid 1300 mg t.i.d. with meals. 10. Min-Chex 2 tabs t.i.d. with meals. 11. Magnesium 1 tab p.o. t.i.d. 12. Lactic acid yeast 2 tabs p.o. b.i.d. 13. Ibuprofen 200 mg p.o. q.i.d. 14. Cataplex F 2 tablets with breakfast and dinner, 1 tablet with lunch. 15. Cataplex B 3 tablets 3 times a day with meals. 16. Cardiotrophin 2 tabs 3 times a day with meals. 17. Refresh Tears 1 drop to both eyes as needed. 18. Calcium lactate 2 tabs 3 times a day with meals. 19. Symbicort 2 puffs twice daily. 20. Aspirin 81 mg p.o. daily. ALLERGIES: To: 1. ERYTHROMYCIN. 2. GLUE. 3. QUINOLONES. 4. SOYA. FAMILY HISTORY: Father had an LA in his 60s, also had hypertension and angina and ultimately had a quadruple bypass. No reported history of diabetes. Mother from lung cancer. SOCIAL HISTORY: The patient reports that she quit smoking 25 years ago. Prior to that she smoked 30 years 2 packs a day, does report a rare alcohol use. Denies any illicit drug use. 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 She is . Surrogate decision maker in the event she is unable to make her own decision is her sister, Magali Siegel. She is a full code. REVIEW OF SYSTEMS: A 11-point review of systems was completed, all pertinent positives are mentioned in the HPI. PHYSICAL EXAM: General: At this time, Ms. Siegel is a 68-year-old female. She is alert and oriented, resting in her hospital bed. She is in no acute distress. Vital Signs: Temperature is 98.1, heart rate 66, respirations 18, O2 saturation 97%, blood pressure 145/77. HEENT: Head is atraumatic, normocephalic. Eyes: EOMs are intact. Sclerae anicteric and not pale. Oral mucosa appeared to be moist. Neck is supple. Lungs are clear to auscultation bilaterally. No wheezes, rales, or rhonchi. Cardiac: S1, S2. Regular rate and rhythm. No murmurs, rubs, or gallops. Abdomen is soft and nontender. Bowel sounds are present x4. Musculoskeletal: She is able to move all 4 extremities. There is no clubbing or cyanosis. Pedal pulses are +2 bilaterally. Skin: She has a dressing, dry and intact to her right knee. Neurologic: She is awake, alert, and oriented x3. Speech is clear. Thought process is intact. There is no gross focal deficit. Psych: The patient is calm and cooperative. LABORATORY DATA AND DIAGNOSTIC STUDIES: WBCs from 07/28/18 are 7.9, RBCs 5.03, hemoglobin 12.6, hematocrit is 39, platelet count is 201. INR was 1.00. Sodium 138, potassium 3.5, chloride was 101, carbon dioxide is 29, anion gap was 8, BUN was 10, creatinine 0.75. Glucose was 80. Uric acid was 5.0. Calcium 9.1, magnesium 2.1. ASTs were 24, ALTs were 19, alkaline phosphatase was 97. C- reactive protein was 1.95. Urine was within normal limits with the exception to there was trace ketones, 3+ urine leukocyte esterase, 3+ wbc's, and squamous epithelial cells were present, bacteria was absent. Urine culture from 07/28/18 showed no growth. IMPRESSION AND PLAN: Ms. Siegel is a 68-year-old female who presented for an elective right total knee arthroplasty with Dr. Munoz in the immediate postoperative period. The patient has no complaints. We were asked to consult to help comanage her chronic medical conditions. Our recommendations are as follows: 1. Status post right total knee arthroplasty management per Orthopedics. PT/ OT per Orthopedics. Bowel regimen per Orthopedics. Pain management per Orthopedics. 2. Hypertension. I would resume her chlorthalidone tomorrow. 3. Gastroesophageal reflux disease. The patient should continue on omeprazole as previously prescribed. 4. Asthma. The patient can have albuterol inhaler 2 puffs q.6 hours as needed for shortness of breath. Now, I would continue her Symbicort and Singulair. 5. FEN. She can have a regular diet. 6. Code status. She is a full code. 7. DVT prophylaxis. As per Orthopedics. TIME SPENT: Time spent on this admission was approximately 45 minutes, greater than half that time was spent at the bedside reviewing events leading thus far to her hospitalization, performing physical exam, and reviewing my plan of care. MAGALI HEATH, BONDING EQUIPMENT OPERATOR [id number]/[facility] #: [id number] ROSEMARIE
[2018-08-08] MEDS: Mometasone/Formoter 100/5 MDI INH SCH (19:40)
[2018-08-08] MEDS: Potassium Chlor TAB* 20 MEQ TAB.ER PO SCH (19:53)
[2018-08-08] MEDS: Docusate CAP* 100 MG PO SCH (19:54)
[2018-08-08] MEDS: Artificial Tears* 15 ML BTL BOTH EYES SCH (19:55)
[2018-08-08] MEDS: Magnesium Hydroxide LIQ* 30 ML UDC PO SCH (19:55)
--- NOTE | 2018-08-08 20:05 | OP ---
Operative Report - Blank - Operative Report Date of Operation: 08/08/18 Note: CONCHITA RODRIGUEZ 1950 Date of Surgery: 08/08/18 Myriam Munoz MD Public Service Officer: Samantha PATEL did help throughout the procedure with preparation of the knee, wound retraction, manipulation of the knee, and wound closure. Anesthesiologist: Alex De Jesus MD Anesthesia Type: Spinal Preoperative Diagnosis: Right severe degenerative osteoarthritis of the knee Postoperative Diagnosis: As above Procedure Performed: Right Total Knee Arthroplasty Tourniquet time: 43 minutes Complications: None Specimen: Bone and cartilage from the right knee joint sent to pathology. Hardware Used: Cemented Devlin and Nephew total knee hardware was used - For the femur a size 3 right narrow oxinium legion posterior stabilized femoral component, for the tibia a size 2 right aurea II tibial baseplate, for the insert a size 11 mm 1-2 posterior stabilized articular polyethylene insert, and for the patella a size 32 3-peg all poly patella. Brief History/Indication: CONCHITA RODRIGUEZ was known in clinic and had a history of severe right knee pain and swelling. She failed conservative treatment with anti-inflammatories, pain pills, intra-articular injections and physical therapy. She elected to undergo right total knee arthroplasty due to continued pain and decreased quality of life. Radiographs showed severe end stage osteoarthritis of the knee with bone on bone contact. Informed consent was obtained from the patient. She understood the risks of surgery included but were not limited to: bleeding, infection, damage to nearby structures, intraoperative fracture, nerve palsy, failure of the hardware, early loosening, knee stiffness or loss of motion, anesthesia complications, stroke, heart attack , blood clot and . She wished to proceed. Intra-Operative Findings: Intraoperatively the patient was noted to have severe loss of cartilage in all 3 compartments of the knee. Description of the Procedure: CONCHITA RODRIGUEZ was identified in the preanesthesia unit. Her right knee was marked as the correct operative side. Informed consent was signed and placed in the chart. The patient was taken to the operating room and placed under anesthesia without complication. A camacho catheter was placed. A tourniquet was placed on the right thigh. The right lower extremity was prepped and draped in the usual sterile fashion. Preoperative time-out was made to correctly identify the patient, side and site. Appropriate intraoperative antibiotics were given within one hour of incision. Tourniquet was inflated. A midline incision was made and carried sharply down to the extensor mechanism. A new 10 blade was used to make a standard medial parapatellar arthrotomy. The patella was subluxed laterally. Electrocautery was used to dissect soft tissue off the superomedial tibia to the midsagittal plane. The knee was flexed up. The anterior horn of the lateral meniscus and the ACL were sharply incised. A drill was used to enter the distal femur. The intramedullary distal femoral cutting guide was pinned on the distal femur. The oscillating saw was used to make the distal femoral cut. The external rotation guide was pinned on the distal femur and the distal femur was sized to a size 3. The size 3 multi-cutting jig was pinned on the distal femur. The oscillating saw was used to make the appropriate 4 chamfer cuts. Next the PCL was completely released. The extramedullary tibial cutting guide was pinned on the proximal tibia and the oscillating saw was used to make the proximal tibial cut perpendicular to the mechanical axis of the tibia. The bone was carefully removed. The knee was brought out into full extension. The spacer block was placed and had excellent fit with the knee in full extension. The medial and lateral ligaments were well balanced. The flexion and extension gaps were well balanced. The knee was flexed up. Lamina compliance review specialist was placed both medially and laterally. Any remaining meniscus was removed with electrocautery. Curved osteotome was used to remove any posterior osteophytes. The tibial tray and drop barbara were placed and confirmed a satisfactory tibial cut. The size 3 right narrow femoral trial was impacted onto the distal femur. This trial had excellent fit and stability. The box for the posterior stabilized implant was prepared using a box cut osteotome and a reamer. Next a tibial tray trial and 9 mm insert trial was placed. The knee was taken through a range of motion and had full extension to 130 degrees of flexion. Patellofemoral tracking was satisfactory. The patella was inverted and sized to a size 32. Three peg holes were drilled through the size 32 drill guide. The trial patella was placed and the knee was taken through a range of motion. There was satisfactory patellofemoral tracking. All trials were removed. The tibia was subluxed anteriorly and sized to a size 2. The proximal tibial was prepared with a size 2 keel punch. All bony cut surfaces were irrigated with sterile saline and dried. Final implants were cemented into place starting with the tibia, followed by the femur, and last the patella. A 9 mm insert trial was placed and the knee was brought into full extension. Tourniquet was turned down and the knee was copiously irrigated with sterile saline. Electrocautery was used to obtain meticulous hemostasis. Once the cement had fully cured, the insert trial was removed. Any excess cement was removed from around the hardware and capsule. Final insert chosen was a 11 mm posterior stabilized Aurea II articular insert size 1-2. Stability of the insert was checked and noted to be stable. The extensor mechanism was closed using number 1 vicryls. The rest of the incision was closed in a layered fashion using 0 and 2-0 vicryls. The skin was closed using 3-0 nylon suture. Sterile xeroform, 4x4s and webril were used to cover the incision. Rob wrap and cold pack were used to cover the dressings. The patients anesthesia was reversed without difficulty. She was taken to the PACU in stable condition. Intended weight-bearing will be as tolerated.
[2018-08-09] MEDS: Lactated Ringers 1000 ML Bag* 1,000 ML IV SCH (02:00)
[2018-08-09] MEDS: oxyCODONE/Acetamin 5/325 MG* TAB PO PRN ×3 (03:50→14:41)
[2018-08-09] MEDS: Acetaminophen TAB* 325 MG PO SCH ×3 (06:10→20:57)
[2018-08-09 06:52] LABS: Hematocrit 34 % (35-47); Hemoglobin 11.1 g/dL (12.0-16.0); Mean Platelet Volume 8.4 fL (7.4-10.4); Platelet Count 174 10^3/uL (150-450)
[2018-08-09 07:01] LABS: BUN/Creatinine Ratio 19.7 (8-20); Calcium 8.9 mg/dL (8.6-10.3); EGFR African American 118.7 (>60); EGFR Non-African American 98.1 (>60); Potassium 3.4 mmol/L (3.5-5.0)
[2018-08-09] MEDS: ceFAZolin 1 GM ADVAN(*) 1 GM in NS 0.9% 50 ML* 50 ML IVPB SCH (08:02)
[2018-08-09] MEDS: Apixaban* 2.5 MG TAB PO SCH ×2 (08:03→20:57)
[2018-08-09] MEDS: Chlorthalidone TAB* 50 MG PO SCH (08:03)
[2018-08-09] MEDS: Mometasone/Formoter 100/5 MDI INH SCH ×2 (08:05→19:57)
[2018-08-09] MEDS: Docusate CAP* 100 MG PO SCH ×2 (08:05→20:59)
[2018-08-09] MEDS: Magnesium Hydroxide LIQ* 30 ML UDC PO SCH ×2 (08:05→20:58)
[2018-08-09] MEDS: Pantoprazole TAB * 40 MG TAB PO SCH (08:06)
[2018-08-09] MEDS: Potassium Chlor TAB* 20 MEQ TAB.ER PO SCH ×2 (08:06→20:58)
--- NOTE | 2018-08-09 08:51 | PN ---
Subjective Date of Service: 08/09/18 Interval History: Pt c/o mild post op knee pain. Some nausea this aM, denies abd pain Objective Active Medications: Acetaminophen (Tylenol Tab*) 975 mg PO Q8HR [facility] Last Admin: 08/09/18 06:10 Dose: Not Given Albuterol (Ventolin Hfa Inhaler*) 2 puff INH Q6H PRN PRN Reason: SOB/WHEEZING Last Admin: 08/09/18 08:00 Dose: 2 puff Apixaban (Eliquis*) 2.5 mg PO BID [facility] Last Admin: 08/09/18 08:03 Dose: 2.5 mg Bisacodyl (Dulcolax Supp*) 10 mg WI DAILY PRN PRN Reason: constipation Chlorthalidone (Hygroton Tab*) 25 mg PO QAM [facility] Last Admin: 08/09/18 08:03 Dose: 25 mg Cyclobenzaprine HCl (Flexeril Tab*) 10 mg PO TID PRN PRN Reason: SPASMS Diphenhydramine HCl (Benadryl Iv*) 12.5 mg IV Q6H PRN PRN Reason: PRURITIS Docusate Sodium (Colace Cap*) 100 mg PO BID [facility] Last Admin: 08/09/18 08:05 Dose: 100 mg Lactated Ringer's (Lactated Ringers 1000 Ml Bag*) 1,000 mls @ 100 mls/hr IV PER RATE [facility] Last Admin: 08/09/18 02:00 Dose: 100 mls/hr Lactulose (Lactulose*) 30 ml PO Q6H PRN PRN Reason: constipation Magnesium Hydroxide (Milk Of Magnesia Liq*) 30 ml PO BID [facility] Last Admin: 08/09/18 08:05 Dose: 30 ml Magnesium Hydroxide (Milk Of Magnesia Liq*) 30 ml PO Q6H PRN PRN Reason: constipation Mometasone Furoate/Formoterol Fumar (Dulera 100/5 Mdi*) 2 puff INH BID [facility] Last Admin: 08/09/18 08:05 Dose: 2 puff Montelukast Sodium (Singulair Tab*) 10 mg PO QPM [facility] Last Admin: 08/08/18 17:24 Dose: 10 mg Morphine Sulfate (Morphine 4 Mg/Ml Vial (1 Ml)) 2 mg IV Q2H PRN PRN Reason: PAIN - UNCONTROLLED Ondansetron HCl (Zofran Inj*) 4 mg IV Q6H PRN PRN Reason: nausea Ondansetron HCl (Zofran Tab*) 4 mg PO Q6H PRN PRN Reason: NAUSEA Oxycodone HCl (Roxycodone Tab*) 10 mg PO Q4H PRN PRN Reason: PAIN - SEVERE Last Admin: 08/08/18 16:25 Dose: 10 mg Oxycodone/Acetaminophen (Percocet 5/325 Tab*) 2 tab PO Q4H PRN PRN Reason: PAIN Last Admin: 08/09/18 08:01 Dose: 2 tab Oxycodone/Acetaminophen (Percocet 5/325 Tab*) 1 tab PO Q4H PRN PRN Reason: PAIN Pantoprazole Sodium (Protonix Tab*) 40 mg PO QAM [facility] Last Admin: 08/09/18 08:06 Dose: 40 mg Polyethylene Glycol/Electrolytes (Miralax*) 17 gm PO DAILY PRN PRN Reason: Constipation Polyvinyl Alcohol (Polyvinyl Alcohol 1.4% Opth*) 1 drop BOTH EYES BEDTIME [facility] Last Admin: 08/08/18 19:55 Dose: 1 drop Potassium Chloride (Klor Con Er Tab*) 20 meq PO BID [facility] Last Admin: 08/09/18 08:06 Dose: 20 meq Tramadol HCl (Ultram*) 50 mg PO Q6H PRN PRN Reason: PAIN Zolpidem Tartrate (Ambien Tab*) 10 mg PO BEDTIME PRN; Protocol PRN Reason: INSOMNIA Vital Signs - 8 hr 08/09/18 08/09/18 08/09/18 01:58 03:48 03:50 Temperature 98.1 F Pulse Rate 70 Respiratory 16 17 16 Rate Blood Pressure 126/68 (mmHg) O2 Sat by Pulse 96 Oximetry 08/09/18 08/09/18 08/09/18 06:10 07:28 08:00 Temperature 98.0 F Pulse Rate 67 Respiratory 16 18 Rate Blood Pressure 130/52 (mmHg) O2 Sat by Pulse 99 Oximetry 08/09/18 08:01 Temperature Pulse Rate Respiratory 18 Rate Blood Pressure (mmHg) O2 Sat by Pulse Oximetry Oxygen Devices in Use Now: None Appearance: 68 yo F in nAD, aAOx3 Eyes: No Scleral Icterus, PERRLA Ears/Nose/Mouth/Throat: NL Teeth, Lips, Gums, Mucous Membranes Moist Neck: NL Appearance and Movements; NL JVP, Trachea Midline Respiratory: Symmetrical Chest Expansion and Respiratory Effort, Clear to Auscultation Cardiovascular: NL Sounds; No Murmurs; No JVD Abdominal: NL Sounds; No Tenderness; No Distention Lymphatic: No Cervical Adenopathy Extremities: No Clubbing, Cyanosis, - - R knee in cryo unit Neurological: Alert and Oriented x 3, NL Muscle Strength and Tone Result Diagrams: 08/09/18 06:33 08/09/18 06:33 Assess/Plan/Problems-Billing Assessment: 68 yo F with h/o HTN, asthma s/p elective R knee replacement - Patient Problems (1) Knee joint replacement status Comment: as per ortho (2) HTN (hypertension) Comment: BP controlled. cont to hold chlorthalidione, likely restart at d/c (3) Asthma Comment: not in exacerbation (4) DVT prophylaxis Comment: on Eliquis as per ortho Status and Disposition: Thank you for consult Will sign off and see pt prn
[2018-08-09] MEDS: oxyCODONE TAB* 5 MG TAB PO PRN ×2 (11:30→20:56)
--- NOTE | 2018-08-09 13:03 | PN ---
Progress Note - Progress Note Date of Service: 08/09/18 SOAP: Subjective: [] Pt seen and examined at bedside. She feels well, knee pain is well controlled. Denies CP, SOB, dizziness, nausea. Objective: []General: NAD RLE: Right knee dressing CDI, thigh soft, DF/PF intact, DP2+, sensation intact to light touch distally Calves supple and nontender without erythema, edema or palpable cords Assessment: []POD [address] Munoz 08/08 Plan: []WBAT PT/OT Eliquis 2.5 mg po BID hyponatremia to 133 - normal diet, repeat tomorrow Vital Signs Temp 98.4 F 08/09/18 11:26 Pulse 64 08/09/18 11:26 Resp 18 08/09/18 11:30 BP 136/54 08/09/18 11:26 Pulse Ox 99 08/09/18 11:26 Intake & Output 08/08/18 08/09/18 08/09/18 18:59 06:59 18:59 Intake Total 569 2423 Output Total 550 750 250 Balance 19 1673 -250 Intake: IV Fluids 359 713 ABX - CEFAZOLIN 53 50 LR 306 663 Oral 210 1710 Output: Quick 550 750 250 Other: # Bowel Movements 0 Laboratory Last Values Hgb 11.1 g/dL (12.0-16.0) L 08/09/18 06:33 Hct 34 % (35-47) L 08/09/18 06:33 Plt Count 174 10^3/uL (150-450) 08/09/18 06:33 MPV 8.4 fL (7.4-10.4) 08/09/18 06:33 Sodium 133 mmol/L (135-145) L 08/09/18 06:33 Potassium 3.4 mmol/L (3.5-5.0) L 08/09/18 06:33 Chloride 97 mmol/L (101-111) L 08/09/18 06:33 Carbon Dioxide 31 mmol/L (22-32) 08/09/18 06:33 Anion Gap 5 mmol/L (2-11) 08/09/18 06:33 BUN 12 mg/dL (6-24) 08/09/18 06:33 Creatinine 0.61 mg/dL (0.51-0.95) 08/09/18 06:33 Est GFR ( Amer) 118.7 (>60) 08/09/18 06:33 Est GFR (Non-Af Amer) 98.1 (>60) 08/09/18 06:33 BUN/Creatinine Ratio 19.7 (8-20) 08/09/18 06:33 Glucose 133 mg/dL (70-100) H 08/09/18 06:33 Calcium 8.9 mg/dL (8.6-10.3) 08/09/18 06:33
[2018-08-09] MEDS ORDERED: Scopolamine 1.5 mg* PATCH TRANSDERM SCH (15:00)
[2018-08-09] MEDS: Montelukast Sodium TAB* 10 MG PO SCH (18:26)
[2018-08-09] MEDS: traMADol TAB* 50 MG PO PRN (18:42)
[2018-08-09] MEDS: Artificial Tears* 15 ML BTL BOTH EYES SCH (20:59)
[2018-08-10] MEDS: traMADol TAB* 50 MG PO PRN (00:49)
[2018-08-10] MEDS: oxyCODONE TAB* 5 MG TAB PO PRN (04:14)
[2018-08-10] MEDS: Acetaminophen TAB* 325 MG PO SCH (04:15)
[2018-08-10 05:05] LABS: Hematocrit 32 % (35-47); Hemoglobin 10.1 g/dL (12.0-16.0); Mean Platelet Volume 8.6 fL (7.4-10.4); Platelet Count 187 10^3/uL (150-450)
[2018-08-10] MEDS: Apixaban* 2.5 MG TAB PO SCH (08:08)
[2018-08-10] MEDS: Chlorthalidone TAB* 50 MG PO SCH (08:08)
[2018-08-10] MEDS: Magnesium Hydroxide LIQ* 30 ML UDC PO SCH (08:09)
[2018-08-10] MEDS: Mometasone/Formoter 100/5 MDI INH SCH (08:09)
[2018-08-10] MEDS: Docusate CAP* 100 MG PO SCH (08:09)
[2018-08-10] MEDS: Pantoprazole TAB * 40 MG TAB PO SCH (08:09)
[2018-08-10] MEDS: Potassium Chlor TAB* 20 MEQ TAB.ER PO SCH (08:09)
[2018-08-10] MEDS: oxyCODONE/Acetamin 5/325 MG* TAB PO PRN ×2 (08:14→13:39)
--- NOTE | 2018-08-10 09:23 | PN ---
Progress Note - Progress Note Date of Service: 08/10/18 SOAP: Subjective: resting comfortably, pain improved, no significant complaints Objective: Vital Signs Temp Pulse Resp BP Pulse Ox 97.8 F 60 14 135/59 92 08/10/18 07:31 08/10/18 07:31 08/10/18 08:21 08/10/18 07:31 08/10/18 07:31 Laboratory Last Values Hgb 10.1 g/dL (12.0-16.0) L 08/10/18 04:43 Hct 32 % (35-47) L 08/10/18 04:43 Plt Count 187 10^3/uL (150-450) 08/10/18 04:43 MPV 8.6 fL (7.4-10.4) 08/10/18 04:43 Sodium 131 mmol/L (135-145) L 08/10/18 04:43 Potassium 3.4 mmol/L (3.5-5.0) L 08/09/18 06:33 Chloride 97 mmol/L (101-111) L 08/09/18 06:33 Carbon Dioxide 31 mmol/L (22-32) 08/09/18 06:33 Anion Gap 5 mmol/L (2-11) 08/09/18 06:33 BUN 12 mg/dL (6-24) 08/09/18 06:33 Creatinine 0.61 mg/dL (0.51-0.95) 08/09/18 06:33 Est GFR ( Amer) 118.7 (>60) 08/09/18 06:33 Est GFR (Non-Af Amer) 98.1 (>60) 08/09/18 06:33 BUN/Creatinine Ratio 19.7 (8-20) 08/09/18 06:33 Glucose 133 mg/dL (70-100) H 08/09/18 06:33 Calcium 8.9 mg/dL (8.6-10.3) 08/09/18 06:33 incision: c/d/i; dressing changed PE: NVI Assessment: s/p right TKA; POD#2 Plan: 1) continue Eliquis BID x 4 weeks 2) PT/OT-WBAT 3) hyponatremia, asymptomatic; will recheck NA in 1 week and have her f/u with PCP if still low 4) Home today after PT
--- NOTE | 2018-08-10 10:19 | DS ---
DATE OF ADMISSION: 08/08/18 DATE OF DISCHARGE: 08/10/18 SURGEON: Myriam Munoz MD * (DICTATED BY JORGE CORTES) PRE-OP DIAGNOSIS: Severe end-stage osteoarthritis of the right knee. PROCEDURE: Right total knee arthroplasty. DISCHARGE DIAGNOSIS: Same as above. DISCHARGE DISPOSITION: Discharged home in stable condition. HISTORY OF PRESENT ILLNESS: Ms. Siegel is a 68-year-old female with end-stage osteoarthritis of the right knee. She failed conservative treatment and elected to undergo a right total knee arthroplasty. HOSPITAL COURSE: Ms. Siegel was admitted electively to the hospital on and underwent a right knee arthroplasty. She tolerated the procedure well. Post- operatively, she was placed on Eliquis twice a day for DVT prophylaxis. Post- operative day one,her H and H was . On post-op day two . At time of discharge, she was ambulating well. Her wound was clean and dry, and her vital signs were stable. DISCHARGE MEDICATIONS: 1. Percocet 5/325 one to two tabs every 4-6 hours as needed for pain. 2. Flexeril 10 mg every 8 hours as needed for muscle spasms. 3. Colace 100 mg 2-3 daily as needed for constipation. 4. Eliquis 2.5 mg every 12 hours for four weeks. 5. Montelukast sodium 10 mg daily. 6. Zypan 3x a day. 7. Cataplex 3x a day. 8. Chlorthalidone 25 mg a day. 9. Albuterol inhaler as needed. 10. Calcium lactate tablets. 11. Tumeric. 12. Evans-3 fatty acid. 13. Omeprazole 20 mg a day. 14. Lunesta 3 mg q hs. 15. Potassium chloride 20 mEq daily. 16. Symbicort two puffs as needed. PHYSICAL EXAM ON DISCHARGE: Her wound was clean and dry. She was afebrile. Her vital signs were stable. She was ambulating well with aid of a walker. She was able to dorsiflex and plantarflex with a 2+ dorsalis pedis pulse and intact sensation. DISCHARGE INSTRUCTIONS: She was discharged home in stable condition. She was given Percocet for pain, Eliquis twice a day for DVT prophylaxis. She was also given Flexeril for muscle spasms, and Colace for constipation. Her dressing was changed prior to discharge. She'll keep that dressing intact until Tuesday. At that time, she can remove the dressing and shower only. No pools, baths or hot tubs. She can either redress the incision with a clean Rob wrap or leave it open to the air. She'll begin physical therapy next week. She's weight bearing as tolerated, and she will follow up with Dr. Munoz in two weeks. JORGE CORTES [id number]/[facility] #: [id number] MTDJustin
[2018-08-10 11:19] VITALS: BP 144/50
== END 2018-08-10 14:10 | disposition home or self-care (01) | DRG 302 ==
LOC: AA 05:33 → SSU 10:29
PROVIDERS: ADMIT Orthopaedic Surgery Adult Reconstructive Orthopaedic Surgery; ATTEND Orthopaedic Surgery Adult Reconstructive Orthopaedic Surgery
PROC: 0SRC0J9 Replacement of Right Knee Joint with Synthetic Substitute, Cemented, Open Approach (ICD-10-PCS; principal; 2018-08-08 07:30)
DX: M17.11 Unilateral primary osteoarthritis, right knee (principal); Z68.41 Body mass index [BMI] 40.0-44.9, adult; E87.1 Hypo-osmolality and hyponatremia; I10 Essential (primary) hypertension; K21.9 Gastro-esophageal reflux disease without esophagitis; F32.9 Major depressive disorder, single episode, unspecified; F41.9 Anxiety disorder, unspecified; J45.909 Unspecified asthma, uncomplicated; J30.2 Other seasonal allergic rhinitis; G89.29 Other chronic pain; M79.673 Pain in unspecified foot; M85.80 Other specified disorders of bone density and structure, unspecified site; K42.9 Umbilical hernia without obstruction or gangrene; G43.909 Migraine, unspecified, not intractable, without status migrainosus; M81.0 Age-related osteoporosis without current pathological fracture; K64.9 Unspecified hemorrhoids; Z96.652 Presence of left artificial knee joint; D51.8 Other vitamin B12 deficiency anemias; E78.2 Mixed hyperlipidemia; E87.6 Hypokalemia; G47.00 Insomnia, unspecified; J41.8 Mixed simple and mucopurulent chronic bronchitis; E66.01 Morbid (severe) obesity due to excess calories; M25.761 Osteophyte, right knee; R11.0 Nausea; Z87.440 Personal history of urinary (tract) infections; Z88.8 Allergy status to other drugs, medicaments and biological substances; Z88.6 Allergy status to analgesic agent; Z88.1 Allergy status to other antibiotic agents; Z91.018 Allergy to other foods; Z82.49 Family history of ischemic heart disease and other diseases of the circulatory system; Z80.1 Family history of malignant neoplasm of trachea, bronchus and lung; Z82.0 Family history of epilepsy and other diseases of the nervous system; Z87.891 Personal history of nicotine dependence; Z68.39 Body mass index [BMI] 39.0-39.9, adult; Z72.89 Other problems related to lifestyle
CPT/HCPCS: 36415; 80048; 84300; 85014; 85018; 85049; 94640; A9270-GY; J0690; J1100; J2250; J2405; J2704; J2795; J3010; J3490

== ENCOUNTER 2019-02-19 13:50 | Emergency (ER) | payer OTHER ==
[2019-02-19 14:30] VITALS: BP 154/63
[2019-02-19] MEDS ORDERED: Albuterol/Ipratropium NEB.SOL* Albuterol 2.5 MG/Ipratropium 0.5 MG 3 ML INH ONE (14:40)
--- NOTE | 2019-02-19 14:43 | UC ---
Respiratory Complaint HPI - HPI Summary HPI Summary: 68-year-old asthmatic who has been sick with head congestion and cough since . She denies any fever or chills. She does not have a nebulizer machine at home because she moved and she lost it. - History of Current Complaint Chief Complaint: UCRespiratory Stated Complaint: COUGH,CHEST CONGESTION Time Seen by Provider: 02/19/19 14:35 Hx Obtained From: Patient ?: No Onset/Duration: Gradual Onset Timing: Intermittent Episodes Severity Initially: Mild Severity Currently: Moderate Pain Intensity: 3 Character: Cough: Nonproductive Aggravating Factors: Deep Breaths Alleviating Factors: Nothing Associated Signs And Symptoms: Positive: Wheezing, URI, Nasal Congestion - Allergies/Home Medications Allergies/Adverse Reactions: Allergies Allergy/AdvReac Type Severity Reaction Status Date / Time erythromycin base Allergy Swelling Verified 02/19/19 14:19 gluten Allergy GI Verified 02/19/19 14:19 AGITATION Quinolones Allergy Agitation Verified 02/19/19 14:19 soy Allergy Itching Verified 02/19/19 14:19 Home Medications: Home Medications D-Methorphan/PE/Acetaminophen [Gnp Day Time Cold/Flu Rel] 1 liq PO BID PRN 02/19 [History Confirmed 02/19/19] PMH/Surg Hx/FS Hx/Imm Hx Previously Healthy: Yes Cardiovascular History: Hypertension Respiratory History: Asthma GI/ History: Ulcer - Surgical History Surgical History: Yes Surgery Procedure, Year, and Place: tonsilectomy 1957. LEFT TOTAL KNEE REPLACEMENT-03/2016 AND MANIPULATION IN - Family History Known Family History: Positive: Non-Contributory - Social History Alcohol Use: Rare Alcohol Amount: 2 PER MONTH Substance Use Type: None Smoking Status (MU): Former Smoker Amount Used/How Often: 2 PPD X 20 YEARS Have You Smoked in the Last Year: No When Did the Patient Quit Smoking/Using Tobacco: 1994 - Immunization History Most Recent Influenza Vaccination: 2018 Most Recent Tetanus Shot: within 10 years Most Recent Pneumonia Vaccination: 3 years ago Vaccination Up to Date: Yes Review of Systems All Other Systems Reviewed And Are Negative: Yes ENT: Positive: Nasal Discharge Respiratory: Positive: Cough - moist cough with wheezing. Is Patient Immunocompromised?: No Physical Exam Triage Information Reviewed: Yes Appearance: Well-Appearing, No Pain Distress, Well-Nourished Vital Signs: Initial Vital Signs Temp 98.8 F 12/30/19 14:25 Pulse 77 02/19/19 14:25 Resp 17 02/19/19 14:25 BP 154/63 02/19/19 14:25 Pulse Ox 97 02/19/19 14:25 Vital Signs Reviewed: Yes Eyes: Positive: Conjunctiva Clear ENT: Positive: Hearing grossly normal, Pharynx normal, Nasal congestion, Nasal drainage, TMs normal, Sinus tenderness, Uvula midline Neck: Positive: Supple, Nontender, No Lymphadenopathy Respiratory: Positive: No respiratory distress, No accessory muscle use, Rhonchi , Wheezing - Scattered rhonchi and wheezing. Harsh moist cough. Cardiovascular: Positive: RRR, No Murmur, Pulses Normal, Brisk Capillary Refill Musculoskeletal Exam: Normal Neurological Exam: Normal Psychological Exam: Normal Skin Exam: Normal Respiratory Course/Dx - Course Course Of Treatment: Chest x-ray:FINDINGS: CARDIOMEDIASTINAL SILHOUETTE: The cardiomediastinal silhouette is normal. JOHANNE: The johanne are normal. PLEURA: The costophrenic angles are sharp. No pleural abnormalities are noted. LUNG PARENCHYMA: The lungs are clear. ABDOMEN: The upper abdomen is clear. There is no subphrenic gas. BONES AND SOFT TISSUES: Degenerative changes are noted along the spine. OTHER: None. IMPRESSION: NO ACTIVE CARDIOPULMONARY DISEASE. DuoNeb treatment: Patient felt increased air movement after the treatment. 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 Patient is comfortable here. - Differential Dx/Diagnosis Provider Diagnosis: Sinusitis, Bronchitis Discharge ED - Sign-Out/Discharge Documenting (check all that apply): Patient Departure All imaging exams completed and their final reports reviewed: Yes - Discharge Plan Condition: Fair Disposition: HOME Prescriptions: Albuterol 2.5MG/3ML (0.083%)* [Ventolin 2.5 MG/3 ML NEB.TYRONE*] 2.5 mg INH Q4H PRN #30 units PRN Reason: Wheezing Benzonatate CAP* [Tessalon 100 MG CAP*] 100 mg PO TID PRN #30 cap PRN Reason: Cough DOXYcycline CAP(*) [DOXYcycline 100MG CAP(*)] 100 mg PO BID 10 Days #20 cap Forms: *Work Release Referrals: Dominick Galvan DO [Primary Care Provider] - Additional Instructions: Increase fluids, use your nebulizer every 4 hours as needed for wheezing. Follow-up with your primary care provider in 3 or 4 days if no improvement. Go to the emergency room for any worsening symptoms or shortness of breath. - Billing Disposition and Condition Condition: FAIR Disposition: Home
== END 2019-02-19 15:16 | disposition home or self-care (01) ==
LOC: UCCORT 13:50
DX: J32.9 Chronic sinusitis, unspecified (principal); I10 Essential (primary) hypertension; J45.909 Unspecified asthma, uncomplicated; Z87.891 Personal history of nicotine dependence; Z88.1 Allergy status to other antibiotic agents; Z91.018 Allergy to other foods; Z88.8 Allergy status to other drugs, medicaments and biological substances
CPT/HCPCS: 71046; 99212; A9270-GY; G0463

== ENCOUNTER 2019-04-01 13:38 | Emergency (ER) | payer OTHER ==
[2019-04-01 15:42] VITALS: BP 137/75
[2019-04-01] MEDS ORDERED: Aspirin 81 mg CHEW TAB* 81 MG TAB.CHEW PO ONE ×2 (15:46→15:54)
[2019-04-01] MEDS ORDERED: Nitroglycerin TAB 0.4 MG* 0.4 MG TAB SL ONE (15:47)
--- NOTE | 2019-04-01 15:59 | UC ---
Shortness of Breath HPI - HPI Summary HPI Summary: C/O worsening shortness of breath over the last 3 days with tightness in the chest, nausea, chills and fevers. No vomiting or diarrhea. Feels weak. - History of Current Complaint Chief Complaint: UCRespiratory Stated Complaint: COUGH, BODY ACHES Time Seen by Provider: 04/01/19 15:34 Hx Obtained From: Patient Onset/Duration: Gradual Onset, Lasting Days - 3 Current Severity: Moderate Dyspnea At: Exertion Aggravating Factors: Movement, Deep Breaths Alleviating Factors: Bronchodilators, Oxygen Associated Signs & Symptoms: Positive: Cough (Nonproductive), Wheezing, Chest Pain Unrelated to Cough, Fever, Diaphoresis, Nasal Congestion Related History: Obesity - Risk Factors Cardiac: Family History - Allergy/Home Medications Allergies/Adverse Reactions: Allergies Allergy/AdvReac Type Severity Reaction Status Date / Time erythromycin base Allergy Swelling Verified 04/01/19 15:25 gluten Allergy GI Verified 04/01/19 15:25 AGITATION Quinolones Allergy Agitation Verified 04/01/19 15:25 soy Allergy Itching Verified 04/01/19 15:25 Home Medications: Home Medications D-Methorphan/PE/Acetaminophen [Vicks Dayquil Liquicaps] 1 each PO PRN 04/01/19 [ History] Dm/Acetaminophen/Doxylamine [Vicks Nyquil Cold & Flu N 15-6.25-325 mg] 1 cap PO PRN 04/01/19 [History] PMH/Surg Hx/FS Hx/Imm Hx Cardiovascular History: Hypertension Respiratory History: Asthma - Surgical History Surgical History: Yes Surgery Procedure, Year, and Place: tonsilectomy 1957. LEFT TOTAL KNEE REPLACEMENT-03/2016 AND MANIPULATION IN . right total knee, 2018 - Family History Known Family History: Positive: Cardiac Disease - Social History Occupation: Retired Lives: With Family Alcohol Use: Rare Alcohol Amount: 2 PER MONTH Substance Use Type: None Smoking Status (MU): Former Smoker Amount Used/How Often: 2 PPD X 20 YEARS Have You Smoked in the Last Year: No When Did the Patient Quit Smoking/Using Tobacco: 1994 - Immunization History Most Recent Influenza Vaccination: 2018 Most Recent Tetanus Shot: within 10 years Most Recent Pneumonia Vaccination: 3 years ago Vaccination Up to Date: Yes Review of Systems All Other Systems Reviewed And Are Negative: Yes Constitutional: Positive: Fever, Fatigue ENT: Positive: Sore Throat, Nasal Discharge Respiratory: Positive: Shortness Of Breath, Cough Cardiovascular: Positive: Chest Pain - tightness/ pressure Musculoskeletal: Positive: Myalgia Neurological: Positive: Headache Is Patient Immunocompromised?: No Physical Exam Triage Information Reviewed: Yes Appearance: No Pain Distress, Ill-Appearing, Obese, Other: - weak Vital Signs: Initial Vital Signs Temp 100.6 F 04/01/19 15:35 Pulse 78 04/01/19 15:35 Resp 22 04/01/19 15:35 BP 137/75 04/01/19 15:35 Pulse Ox 97 04/01/19 15:35 Vital Signs Reviewed: Yes Eyes: Positive: Conjunctiva Inflamed ENT: Positive: Pharynx normal, TMs normal Neck exam: Normal Respiratory: Positive: Wheezing - diffuse expiratory wheezes with coughing Cardiovascular Exam: Normal Abdomen Description: Positive: Nontender, Soft Musculoskeletal Exam: Normal Neurological Exam: Normal Neurological: Positive: Fatigued Psychological Exam: Normal Skin Exam: Normal Diagnostics - Laboratory Lab Results: Rapid flu is negative - EKG Cardiac Rate: NL Cardiac Rhythm: Sinus: Normal Ectopy: None ST Segment: Non-Specific - borderline aayush-lateral ST depression and T wave changes C/O ischemia Summary of EKG Findings: Possible inferior ischemia. Re-Evaluation - Re-Evaluation First Eval Re-Evaluation Time: 16:38 Change: Improved - Breathing is better after the neb and with the oxygen. Second Eval Re-Evaluation Time: 16:50 - EKG still with borderline ST/T changes Shortness of Breath Dx - Course Course Of Treatment: Patient feels a little better with oxygen and nebulizer but still has 3/10 chest pressure. Aspirin given. Nitro held with no IV. Patient advised with abnormal EKG will need to be evaluated at the ER. Transport by ambulance. - Differential Dx/Diagnosis Differential Diagnosis/HQI/PQRI: Asthma, COPD Exacerbation, NV, Unstable Angina Provider Diagnosis: Upper respiratory infection, Acute bronchospasm, Abnormal EKG - Physician Notification/Consults Discussed Patient Care With: Caitlin White - discussed transfer Time Discussed With Above Provider: 16:54 Instructed by Provider To: Transfer - To [facility] ED by ambulance Discharge ED - Sign-Out/Discharge Documenting (check all that apply): Patient Departure All imaging exams completed and their final reports reviewed: No Studies - Discharge Plan Condition: Guarded Disposition: TRANS HIGHER LVL OF CARE FAC Referrals: Dominick Galvan DO [Primary Care Provider] - - Billing Disposition and Condition Condition: GUARDED Disposition: Trans Higher Lvl of Care Fac
[2019-04-01] MEDS ORDERED: Albuterol/Ipratropium NEB.SOL* Albuterol 2.5 MG/Ipratropium 0.5 MG 3 ML INH ONE (16:15)
[2019-04-01 16:22] LABS: Influenza A Molecular Negative (Negative); Influenza B Molecular Negative (Negative)
== END 2019-04-01 17:06 | disposition short-term general hospital (02) ==
LOC: UCCORT 13:38
DX: J06.9 Acute upper respiratory infection, unspecified (principal); R94.31 Abnormal electrocardiogram [ECG] [EKG]; I10 Essential (primary) hypertension; J45.909 Unspecified asthma, uncomplicated; R53.83 Other fatigue; J02.9 Acute pharyngitis, unspecified; R51 Headache; Z87.891 Personal history of nicotine dependence; Z96.652 Presence of left artificial knee joint; J98.01 Acute bronchospasm; Z88.1 Allergy status to other antibiotic agents; Z88.8 Allergy status to other drugs, medicaments and biological substances; Z91.018 Allergy to other foods
CPT/HCPCS: 93005; 99214; A9270-GY; G0463

== ENCOUNTER 2019-04-01 17:51 | Inpatient (IN) | payer OTHER ==
[2019-04-01] MEDS ORDERED: methylPREDNISolone 125 MG* 2 ML VIAL IV ONE (18:20)
[2019-04-01] MEDS ORDERED: Albuterol/Ipratropium NEB.SOL* Albuterol 2.5 MG/Ipratropium 0.5 MG 3 ML INH ONE ×2 (18:20→20:38)
[2019-04-01] MEDS ORDERED: Magnesium Sulfate 1 GM IV* 1 GM/100 ML BAG IV ONE (18:23)
--- NOTE | 2019-04-01 18:32 | ED ---
Shortness of Breath - HPI Summary HPI Summary: The patient is a 68-year-old female presenting to [facility] emergency department with a chief complaint of shortness of breath worsening since 03/28/2019. She reports that when her symptoms began, she used her nebulizer that she uses for asthma exacerbations, but it did not help her difficulty breathing or cough. Two days later, she developed an inability to walk more than ten steps without becoming increasingly short of breath. Yesterday, she felt very fatigued and slept the entire day. She has realized that the cough is somewhat alleviated by lying on her abdomen. Since her symptoms have become worse with intermittent fevers as well, she went to [facility] today, and tested negative for the flu. She was sent here for further testing. Symptoms are currently rated 3/10 in severity. Past medical history significant for anemia, hyperlipidemia, hypertension, GERD, gastric ulcer, headache/migraines. Former smoker, rare alcohol use, no substance use. Medications reviewed. Allergies noted. - History of Current Complaint Chief Complaint: EDShortnessOfBreath Time Seen by Provider: 04/01/19 18:14 Hx Obtained From: Patient Onset/Duration: Gradual Onset, Lasting Days, Still Present Current Severity: Moderate Dyspnea At: Rest Aggravating Factors: Nothing Alleviating Factors: Other - lying on abdomen Associated Signs & Symptoms: Cough (Nonproductive), Fever - Allergy/Home Medications Allergies/Adverse Reactions: Allergies Allergy/AdvReac Type Severity Reaction Status Date / Time erythromycin base Allergy Swelling Verified 04/01/19 18:09 gluten Allergy GI Verified 04/01/19 18:09 AGITATION Quinolones Allergy Agitation Verified 04/01/19 18:09 soy Allergy Itching Verified 04/01/19 18:09 PMH/Surg Hx/FS Hx/Imm Hx Endocrine/Hematology History: Reports: Hx Anemia - 2 YRS AGO-NO PROBLEMS CURRENTLY Denies: Hx Diabetes Cardiovascular History: Reports: Hx Hypercholesterolemia, Hx Hypertension Denies: Hx Congestive Heart Failure, Hx Pacemaker/ICD Respiratory History: Reports: Hx Asthma - ROUTINE AND PRN MEDICATION FOR Denies: Other Respiratory Problems/Disorders GI History: Reports: Hx Gastroesophageal Reflux Disease - ROUTINE MEDICATION FOR , 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 NOW Denies: Other GI Disorders History: Denies: Hx Renal Disease, Other Problems/Disorders Musculoskeletal History: Reports: Hx Arthritis - KNEES, HANDS Denies: Other Musculoskeletal History Sensory History: Reports: Hx Contacts or Glasses - GLASSES, Hx Glaucoma Denies: Hx Hearing Aid Opthamlomology History: Reports: Hx Contacts or Glasses - GLASSES, Hx Glaucoma Neurological History: Reports: Hx Headaches - HX OF IN THE PAST, Hx Migraine - HX OF IN THE PAST-TRIGGERED BY HORMONES Psychiatric History: Denies: Hx Panic Disorder - Surgical History Surgery Procedure, Year, and Place: tonsilectomy 1957. LEFT TOTAL KNEE REPLACEMENT-03/2016 AND MANIPULATION IN . right total knee, 2018 Hx Anesthesia Reactions: Yes - EXTREME NAUSEA - Immunization History Date of Tetanus Vaccine: Unknown Date of Influenza Vaccine: 2019 Immunizations Up to Date: Yes - Family History Known Family History: Positive: Cardiac Disease - Social History Alcohol Use: Rare Alcohol Amount: 2 PER MONTH Hx Substance Use: No Substance Use Type: Reports: None Hx Tobacco Use: Yes Smoking Status (MU): Former Smoker Amount Used/How Often: 2 PPD X 20 YEARS Have You Smoked in the Last Year: No Review of Systems Positive: Fever, Fatigue Positive: Shortness Of Breath, Cough All Other Systems Reviewed And Are Negative: Yes Physical Exam - Summary Physical Exam Summary: VITAL SIGNS: Reviewed. GENERAL: Patient is a well-developed and nourished female who is lying comfortable in the stretcher. Patient is not in any acute respiratory distress. HEAD AND FACE: No signs of trauma. No ecchymosis, hematomas or skull depressions. No sinus tenderness. EYES: PERRLA, EOMI x 2, No injected conjunctiva, no nystagmus. EARS: Hearing grossly intact. Ear canals and tympanic membranes are within normal limits. MOUTH: Oropharynx within normal limits. NECK: Supple, trachea is midline, no adenopathy, no JVD, no carotid bruit, no c- spine tenderness, neck with full ROM. CHEST: Symmetric, no tenderness at palpation. LUNGS: Decreased breath sounds bilaterally. Slight wheezing. Positive rhonchi. CVS: Regular rate and rhythm, S1 and S2 present, no murmurs or gallops appreciated. ABDOMEN: Soft, non-tender. No signs of distention. No rebound, no guarding, and no masses palpated. Bowel sounds are normal. EXTREMITIES: FROM in all major joints, no edema, no cyanosis or clubbing. NEURO: Alert and oriented x 3. No acute neurological deficits. Speech is normal and follows commands. SKIN: Dry and warm. Triage Information Reviewed: Yes Vital Signs On Initial Exam: Initial Vitals Temp Pulse Resp BP Pulse Ox 99.2 F 79 22 190/92 98 04/01/19 17:54 04/01/19 17:54 04/01/19 17:54 04/01/19 17:54 04/01/19 17:54 Vital Signs Reviewed: Yes Procedures - Sedation Patient Received Moderate/Deep Sedation with Procedure: No Diagnostics - Vital Signs Vital Signs Temp Pulse Resp BP Pulse Ox 04/01/19 17:54 99.2 F 79 22 190/92 98 - Laboratory Result Diagrams: 04/01/19 19:10 04/01/19 19:10 Lab Statement: Any lab studies that have been ordered have been reviewed, and results considered in the medical decision making process. - Radiology Chest X-Ray Radiology Interpretation Completed By: ED Physician Summary of Radiographic Findings: No acute pathology. ED physician has reviewed and interpreted this report. Pending official read. - EKG 1849 Cardiac Rate: NL - 81 BPM EKG Rhythm: Sinus Rhythm EKG Comparison: No Significant Change - Similar to 07/28/18 Summary of EKG Findings: An EKG at 1849 reveals normal sinus rhythm at a rate of 81 BPM, ST depressions in I, II, and V4-V6. Similar to previous on 07/28/18. ED physician has reviewed and interpreted this EKG. Course/Dx - Course Assessment/Plan: The patient is a 68-year-old female presenting to [facility] emergency department with a chief complaint of shortness of breath worsening since 03/28/2019. She reports that when her symptoms began, she used her nebulizer that she uses for asthma exacerbations, but it did not help her difficulty breathing or cough. Two days later, she developed an inability to walk more than ten steps without becoming increasingly short of breath. Yesterday, she felt very fatigued and slept the entire day. She has realized that the cough is somewhat alleviated by lying on her abdomen. Since her symptoms have become worse with intermittent fevers as well, she went to [facility] today, and tested negative for the flu. She was sent here for further testing. Symptoms are currently rated 3/10 in severity. Past medical history significant for anemia, hyperlipidemia, hypertension, GERD, gastric ulcer, headache/ migraines. Former smoker, rare alcohol use, no substance use. Medications reviewed. Allergies noted. In the ED course, the patient was placed on a electronic device monitor, IV access was obtained, IV fluids started. She was given Duonebs, Solumedrol and magnesium IV for the asthma exacerbation. Blood test w/ o a significant abnormality except for sodium of 131, chloride of 98, glucose of 120, calcium of 8.4, and CRP of 14.3. Urinalysis reveals 2+ blood but is otherwise negative for a UTI. Chest x-ray impression: No acute pathology. The patients breathing is improving with the shortness of breath, however, she is still wheezing. Therefore, I will order additional DuoNebs. I discussed my physical exam and findings with Dr. Rodriguez from the hospital services course the patient for admission. Dr. Rodriguez requests an ABG draw, which he will follow up with. - Diagnoses Provider Diagnoses: Asthma exacerbation - Physician Notifications Discussed Care of Patient With: Alexandr Rodriguez - hospitalist Time Discussed With Above Provider: 20:25 Instructed by Provider To: Other - I discussed the patients case with Dr. Rodriguez , who accepts the patient for admission, although he also recommends an ABG draw at this time, which he will follow up with. Discharge ED - Sign-Out/Discharge Documenting (check all that apply): Patient Departure - Patient accepted for admission by Dr. Rodriguez. - Discharge Plan Condition: Stable Disposition: ADMITTED TO [facility] Referrals: Dominick Galvan DO [Primary Care Provider] - - Billing Disposition and Condition Condition: STABLE Disposition: Admitted to [facility] - Attestation Statements Document Initiated by Barbi: Yes Documenting Scribe: Lanie Serna Provider For Whom Barbi is Documenting (Include Credential): Dr. Ad Zafar MD Scribe Attestation: Lanie Mancia, scribed for Dr. Ad Zafar MD on 04/01/19 at 2143. Scribe Documentation Reviewed: Yes Provider Attestation: The documentation as recorded by the Lanie blanco accurately reflects the service I personally performed and the decisions made by me, Dr. Ad Zafar MD Status of Scribe Document: Viewed
[2019-04-01 18:55] LABS: Urine Appearance Clear; Urine Bilirubin Negative (Negative); Urine Blood 2+ (Negative); Urine Color Straw; Urine Glucose Negative (Negative); Urine Ketones Negative (Negative); Urine Nitrite Negative (Negative); Urine Protein Negative (Negative); Urine Specific Gravity 1.004 (1.010-1.030); Urine Urobilinogen Negative (Negative)
[2019-04-01 18:58] LABS: Urine Bacteria Absent (Absent); Urine Red Blood Cell Trace(0-2/hpf) (Absent); Urine Squamous Epithelial Cell Present (Absent); Urine White Blood Cell Absent (Absent)
[2019-04-01 19:37] LABS: Hematocrit 35 % (35-47); Hemoglobin 11.7 g/dL (12.0-16.0); Mean Corpuscular HGB Conc 33 g/dL (31-36); Mean Corpuscular Hemoglobin 25 pg (27-31); Mean Corpuscular Volume 74 fL (80-97); Mean Platelet Volume 8.3 fL (7.4-10.4); Platelet Count 145 10^3/uL (150-450); Red Blood Count 4.78 10^6 /uL (3.70-4.87); Red Cell Distribution Width 19 % (10-15); White Blood Count 4.1 10^3/uL (3.5-10.8)
[2019-04-01 19:38] LABS: ABS Eosinophils 0.1 10^3/ul (0-0.6); ABS Lymphocytes 0.6 10^3/ul (1.0-4.8); ABS Monocytes 0.2 10^3/ul (0-0.8); ABS Neutrophils 3.1 10^3/ul (1.5-7.7); Eosinophil % 1.7 %; Lymphocyte % 15.4 %; Nucleated Red Blood Cells % 0.2
[2019-04-01 19:50] LABS: ALT 47 U/L (7-52); Albumin 4.2 g/dL (3.2-5.2); Albumin/Globulin Ratio 1.4 (1-3); Alkaline Phosphatase 82 U/L (34-104); BUN/Creatinine Ratio 13.2 (8-20); Blood Urea Nitrogen 9 mg/dL (6-24); C Reactive Protein 14.36 mg/L (<8.01); CO2 Carbon Dioxide 24 mmol/L (22-32); Calcium 8.4 mg/dL (8.6-10.3); Chloride 98 mmol/L (101-111); EGFR African American 104.7 (>60); EGFR Non-African American 86.6 (>60); Globulin 3.1 g/dL (2-4); Glucose 120 mg/dL (70-100); Sodium 131 mmol/L (135-145); Total Protein 7.3 g/dL (6.4-8.9)
[2019-04-01 19:53] LABS: Troponin I 0.01 ng/mL (<0.03)
[2019-04-01 19:55] LABS: CKMB ng/mL 2.1 ng/mL (0.6-6.3)
[2019-04-01 20:26] LABS: Anion Gap 9 mmol/L (2-11)
[2019-04-01] MEDS ORDERED: Acetaminophen TAB* 325 MG PO PRN (21:44)
[2019-04-01] MEDS ORDERED: Albuterol/Ipratropium NEB.SOL* Albuterol 2.5 MG/Ipratropium 0.5 MG 3 ML INH PRN (21:44)
[2019-04-01] MEDS ORDERED: Piperacillin/Tazobac ADVAN(*) 3.375 GM in NS 0.9% 100 ML* 100 ML IVPB ONE (22:06)
[2019-04-01] MEDS ORDERED: guaiFENesin/CODIENE 100mg/10mg 5 ML UDC PO PRN (22:06)
[2019-04-01] MEDS ORDERED: Zosyn per Pharmacy* NOTE FOLLOW UP SCH (23:00)
[2019-04-01] MEDS: Carboxymethylcellulose/Glyceri 10 ML OPHTH.GEL lubricant eye gel BOTH EYES SCH (23:58)
[2019-04-01] MEDS: Zolpidem TAB* 10 MG PO SCH (23:58)
--- NOTE | 2019-04-02 01:29 | HP ---
CC: Dr. Dominick Galvan * ADMISSION HISTORY AND PHYSICAL: DATE OF ADMISSION: 04/01/19 PRIMARY CARE PHYSICIAN: Dr. Dominick Galvan CHIEF COMPLAINT: Cough and shortness of breath. HISTORY OF PRESENT ILLNESS: This is a 68-year-old female with past medical history of hypertension, gastroesophageal reflux disease, and asthma, diagnosed in 2018, on multiple medications, was in her usual state of health up until January when she was diagnosed with bronchitis, sinusitis, and some ear infection and received 10 days of doxycycline along with some cough suppressing medications. After she finished the course in January, she still continued to have cough as it never resolved; however, for the last 5 days, the patient's cough has been worsening, and by Tuesday, she was also very short of breath, worse with even just 10 steps with increased amount of wheezing. She denied any chest pain, but stated that she felt a chest pressure and only relieved when she slept on her stomach. She also had felt feverish, so finally decided to come to the urgent care where did have an actual recorded temperature of 100.6 and because the patient's symptoms did not resolve at the urgent care, she was sent to the emergency room for further evaluation. She also had some accompanying symptoms including some gaging, which she states is because of the relentless coughing she was having and some back pain, which she states is because of uncomfortable bed in the ER and also from the cough. PAST MEDICAL HISTORY: As mentioned: 1. Hypertension. 2. Gastroesophageal reflux disease. 3. Vitamin B12 and iron deficiency. 4. History of asthma. 5. Insomnia. PAST SURGICAL HISTORY: 1. She has had bilateral total knee arthroplasties. 2. Tonsillectomy. HOME MEDICATIONS: The patient is on, 1. Vicks NyQuil Cold and Flu 1 tablet oral daily. 2. Vicks DayQuil 1 tablet oral daily. 3. Zypan 1 tablet t.i.d. with meals. 4. Potassium chloride 20 mEq b.i.d.. 5. Pneumotrophin 1 tablet oral q.i.d. 6. Omeprazole 20 mg every morning. 7. Shannon-3 1300 mg p.o. t.i.d. with meals. 8. Singulair 10 mg every evening. 9. Min-Chex 2 tablets p.o. t.i.d. with meals. 10. Magnesium lactate 1 tablet p.o. t.i.d.. 11. Lunesta 3 mg p.o. daily at bedtime. 12. Hygroton 25 mg oral every morning. 13. Cataplex F 2 tablets with breakfast and dinner and 1 tablet at lunch. 14. Cataplex B 3 tablets t.i.d. with meals. 15. Cardiotrophin 2 tablets p.o. t.i.d. with meals. 16. Refresh Liquigel both eyes daily and bedtime. 17. Symbicort 2 puffs by inhalation b.i.d. 18. Albuterol 1 to 2 puffs by inhalation q.6 hours p.r.n. and nebulizers q.4 hours p.r.n.. ALLERGIES: The patient is allergic to ERYTHROMYCIN, QUINOLONE, GLUTEN, and SOY. FAMILY HISTORY: Father had an NH in his 60s, also has high blood pressure and angina and required a quadruple bypass, no history of diabetes. Mother from lung cancer. SOCIAL HISTORY: She quit smoking over 25 years ago. Prior to that, smoked for 30 years about 2 packs per day. Rarely used any alcohol or illicit drug use. 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 She is and her sister Magali Siegel is her surrogate decision maker, and she is otherwise full code. REVIEW OF SYSTEMS: A 14-point review of systems did not reveal any new information other than what is mentioned in the HPI. PHYSICAL EXAMINATION GENERAL: The patient is awake, alert, oriented x3. Does not appear to be in any acute distress. VITAL SIGNS: In the ER, T-max was recorded at 99.2; however, she did have fever earlier at the urgent care center at 100.6. BP was noted to be 125/63, heart rate 81, respiration rate was 18, saturating 92% on room air. HEENT: Atraumatic, normocephalic. Bilateral pupils reactive. Oral mucosa was moist. NECK: Supple. No jugular venous distention. HEART: S1, S2. Regular rate and rhythm. LUNGS: The patient had intermittent rhonchi and wheezes heard. ABDOMEN: Obese, soft, nontender. EXTREMITIES: No cyanosis, clubbing, or edema. LABORATORY DATA: CBC showed normal white count. Hemoglobin showed mild anemia with hemoglobin of 11.7. Platelet count was 145. APTT was noted to be normal at 31.7. ABG was showing pH of 7.51, pCO2 of 32, PaO2 of 75. Comprehensive metabolic panel was unremarkable except for minimally elevated random glucose at 120, C- reactive protein elevated at 14.36. Urinalysis is negative for any leuk esterase or nitrites but positive for 2+ blood. Influenza A and B were tested at the urgent care, where both noted to be negative. Portable chest x-ray did not reveal any acute changes when compared to her old chest x-ray from January. Again, I did not notice any acute changes and otherwise was clear. EKG shows sinus rhythm at 81 beats per minute with no ST elevation. When compared to her old EKG from 2019, there is no significant change. IMPRESSION AND PLAN: This is a 68-year-old female with a history of hypertension, gastroesophageal reflux disease, and insomnia, here due to shortness of breath likely secondary to asthma exacerbation and also fever. Source is still unclear, could be from an upper respiratory tract infection. 1. Hypoxic respiratory failure likely secondary to asthma exacerbation, questionable component of upper respiratory infection . We will start the patient on steroids, DuoNeb, along with Zosyn to cover upper respiratory tract pathogens, which can be switched over to Augmentin if she clinically improves and follow up sputum culture as well as to adjust antibiotics accordingly. We will also send a MRSA screen and consider starting vancomycin if MRSA screen is positive. 2. History of hypertension. We will restart BP medication. 3. History of gastroesophageal reflux disease. We will restart her PPI. 4. History of insomnia. Continue her home medication. 5. Incidental findings found microscopic hematuria and mild anemia, which can be worked up as an outpatient. 6. DVT prophylaxis with sequential compression device. 7. Code status: Full code. [id number]/CPS #: [id number] MTDD
[2019-04-02] MEDS: ZOSYN 3.375 GM Q8H per EXTENDED INFUSION IVPB SCH ×6 (03:59→20:28)
[2019-04-02] MEDS ORDERED: methylPREDNISolone SOD 40 MG* 1 ML VIAL IV SCH (06:00)
[2019-04-02 06:59] LABS: BUN/Creatinine Ratio 18.8 (8-20); Calcium 8.4 mg/dL (8.6-10.3); EGFR African American 112.3 (>60); EGFR Non-African American 92.8 (>60); Potassium 3.7 mmol/L (3.5-5.0)
[2019-04-02 07:00] LABS: ABS Lymphocytes 0.5 10^3/ul (1.0-4.8); ABS Monocytes 0.1 10^3/ul (0-0.8); ABS Neutrophils 2.3 10^3/ul (1.5-7.7); Eosinophil % 0.1 %; Hematocrit 35 % (35-47); Hemoglobin 11.7 g/dL (12.0-16.0); Lymphocyte % 15.6 %; Mean Corpuscular HGB Conc 33 g/dL (31-36); Mean Corpuscular Hemoglobin 24 pg (27-31); Mean Corpuscular Volume 74 fL (80-97); Mean Platelet Volume 8.2 fL (7.4-10.4); Platelet Count 151 10^3/uL (150-450); Red Cell Distribution Width 20 % (10-15)
[2019-04-02] MEDS: CMCS:OMEGA-3 FATTY ACIDS (NF) 1,000 MG CAP PO SCH ×3 (08:20→17:02)
[2019-04-02] MEDS: Chlorthalidone TAB* 50 MG PO SCH (08:21)
[2019-04-02] MEDS: Pantoprazole TAB * 40 MG TAB PO SCH (08:22)
[2019-04-02] MEDS: Potassium Chlor TAB* 20 MEQ TAB.ER PO SCH ×2 (08:23→22:02)
[2019-04-02] MEDS: Mometasone/Formoter 100/5 MDI INH SCH ×2 (08:39→20:05)
--- NOTE | 2019-04-02 11:37 | PN ---
Subjective Date of Service: 04/02/19 Interval History: Non-productive cough. Walked around the block. Does not have O2 at home. Had diarrhea with prednisone in the past. Objective Active Medications: Acetaminophen (Tylenol Tab*) 650 mg PO Q4H PRN PRN Reason: MILD PAIN or TEMP > 100.4 Albuterol/Ipratropium (Duoneb (Albuterol 2.5 Mg/Ipratropium 0.5 Mg)) 1 neb INH [id number] AWAKE PRN PRN Reason: sob/wheezing Carboxymethylcellulose/Glycerin (Refresh Optive Gel Eye Gel) 1 applic BOTH EYES BEDTIME [facility] Last Admin: 04/01/19 23:58 Dose: 1 drop Chlorthalidone (Hygroton Tab*) 25 mg PO DAILY WITH MEAL [facility] Last Admin: 04/02/19 08:21 Dose: 25 mg Fish Oil (Fish Oil (Nf)) 1,000 mg PO TID WITH MEALS [facility] Last Admin: 04/02/19 08:20 Dose: 1,000 mg Guaifenesin/Codeine Phosphate (Robitussin Ac 100mg/10mg In 5 Ml) 5 ml PO Q6H PRN PRN Reason: COUGH Last Admin: 04/01/19 23:57 Dose: 5 ml Piperacillin Sod/Tazobactam (Sod 3.375 gm/ Sodium Chloride) 100 mls @ 25 mls/ hr IVPB Q8H [facility] Last Admin: 04/02/19 03:59 Dose: 25 mls/hr Methylprednisolone Sodium Succinate (Solu-Medrol 40 Mg) 40 mg IV Q12HR@0600, 1800 [facility] Last Admin: 04/02/19 06:39 Dose: 40 mg Mometasone Furoate/Formoterol Fumar (Dulera 100/5 Mdi*) 2 puff INH BID [facility] Last Admin: 04/02/19 08:39 Dose: 2 puff Montelukast Sodium (Singulair Tab*) 10 mg PO QPM [facility] Pantoprazole Sodium (Protonix Tab*) 40 mg PO QAM [facility] Last Admin: 04/02/19 08:22 Dose: 40 mg Pharmacy Consult (Zosyn Per Pharmacy*) 1 note FOLLOW UP .ZOSYN PER PHARMACY [facility] Potassium Chloride (Klor Con Er Tab*) 20 meq PO BID [facility] Last Admin: 04/02/19 08:23 Dose: 20 meq Zolpidem Tartrate (Ambien Tab*) 10 mg PO BEDTIME [facility]; Protocol Last Admin: 04/01/19 23:58 Dose: 10 mg Vital Signs - 8 hr 04/02/19 04/02/19 04/02/19 07:15 08:00 08:42 Temperature 98.1 F Pulse Rate 74 67 Respiratory 22 22 14 Rate Blood Pressure 131/67 (mmHg) O2 Sat by Pulse 92 96 95 Oximetry Oxygen Devices in Use Now: Nasal Cannula Appearance: Alert, sitting up in bed. Frequent harsh cough but otherwise seems comfortable. In good spirits. Eyes: No Scleral Icterus Ears/Nose/Mouth/Throat: Clear Oropharnyx, Mucous Membranes Moist Neck: NL Appearance and Movements; NL JVP, No Thyroid Enlargement, Masses Respiratory: Symmetrical Chest Expansion and Respiratory Effort, Clear to Auscultation, Clear to Percussion, - - Patient produced wheezing after a cough when trying to show me how she wheezed. Extremities: No Edema, No Clubbing, Cyanosis Skin: No Rash or Ulcers, No Nodules or Sclerosis, - Neurological: Alert and Oriented x 3, NL Sensation Result Diagrams: 04/02/19 06:21 04/02/19 06:21 Assess/Plan/Problems-Billing Assessment: - Patient Problems (1) Asthma Current Visit: No Status: Acute Code(s): J45.909 - UNSPECIFIED ASTHMA, UNCOMPLICATED SNOMED Code(s): 312384668 Comment: In exacerbation. Quit smoking 25 yrs ago, smoked for 20 yrs. Prednisone taper. Scheduled guaifenesin. Wheezing seems to be [place] in nature. PRN bronchodilators, uses SYmbicort bid at home plus rescue alubuterol. (2) HTN (hypertension) Current Visit: No Status: Acute Code(s): I10 - ESSENTIAL (PRIMARY) HYPERTENSION SNOMED Code(s): 93128209 Comment: Continue chlorthalidione.
[2019-04-02] MEDS: guaiFENesin 100 mg/5 ml LIQ unit dose cup PO SCH ×3 (13:36→20:28)
[2019-04-02] MEDS ORDERED: Montelukast Sodium TAB* 10 MG PO SCH (18:00)
[2019-04-02] MEDS: Zolpidem TAB* 10 MG PO SCH (22:02)
[2019-04-02] MEDS: Carboxymethylcellulose/Glyceri 10 ML OPHTH.GEL lubricant eye gel BOTH EYES SCH (22:03)
[2019-04-03] MEDS: guaiFENesin 100 mg/5 ml LIQ unit dose cup PO SCH ×4 (00:18→11:51)
[2019-04-03] MEDS: ZOSYN 3.375 GM Q8H per EXTENDED INFUSION IVPB SCH ×4 (04:27→11:51)
[2019-04-03] MEDS: Mometasone/Formoter 100/5 MDI INH SCH (07:17)
[2019-04-03] MEDS: CMCS:OMEGA-3 FATTY ACIDS (NF) 1,000 MG CAP PO SCH ×2 (07:41→11:50)
[2019-04-03] MEDS: Chlorthalidone TAB* 50 MG PO SCH (07:41)
[2019-04-03] MEDS: Pantoprazole TAB * 40 MG TAB PO SCH (07:42)
[2019-04-03] MEDS: Potassium Chlor TAB* 20 MEQ TAB.ER PO SCH (07:42)
[2019-04-03 13:46] LABS: ABS Lymphocytes 0.6 10^3/ul (1.0-4.8); ABS Monocytes 0.2 10^3/ul (0-0.8); ABS Neutrophils 5.2 10^3/ul (1.5-7.7); Eosinophil % 0.1 %; Hematocrit 39 % (35-47); Hemoglobin 12.7 g/dL (12.0-16.0); Lymphocyte % 10.5 %; Mean Corpuscular HGB Conc 33 g/dL (31-36); Mean Corpuscular Hemoglobin 25 pg (27-31); Mean Corpuscular Volume 76 fL (80-97); Mean Platelet Volume 8.1 fL (7.4-10.4); Platelet Count 169 10^3/uL (150-450); Red Blood Count 5.11 10^6 /uL (3.70-4.87); Red Cell Distribution Width 20 % (10-15)
[2019-04-03] MEDS ORDERED: Ibuprofen TAB* 600 MG PO PRN (14:24)
[2019-04-03 15:42] VITALS: BP 130/83
--- NOTE | 2019-04-03 23:44 | DS ---
CC: Dr. Galvan * DISCHARGE SUMMARY: DATE OF ADMISSION: 04/01/19 DATE OF DISCHARGE: 04/03/19 ATTENDING PHYSICIAN WHILE IN THE HOSPITAL: Stephanie Guevara MD * (dictated by JORGE Freedman). PRIMARY CARE PROVIDER: Dr. Galvan. PRIMARY DIAGNOSES: 1. Acute hypoxic respiratory failure secondary to possible asthma exacerbation though history of asthma is unclear. 2. Likely bronchitis, questionable bacterial versus viral. SECONDARY DIAGNOSES: 1. Hypertension. 2. Gastroesophageal reflux disease. 3. Vitamin B12 deficiency. 4. Iron deficiency. 5. Insomnia. 6. Admission diagnosis of asthma. PERTINENT STUDIES WHILE IN THE HOSPITAL: Chest x-ray on 04/01/19. Impression: No evidence for active cardiopulmonary disease. HISTORY OF PRESENT ILLNESS/HOSPITAL COURSE: Carmen Siegel is a 68-year-old white female with a past medical history significant for recent diagnosis of asthma, hypertension, GERD, iron deficiency who presented to emergency room due to cough and shortness of breath on 04/01/19. The patient was found to be requiring oxygen as her initial oxygen saturations in the emergency department of 86%. Her chest x-ray was without any acute findings for pneumonia; however, she did have a measured fever at home prior to coming to the hospital. She was started on initially IV steroids and later transitioned to p.o. steroids for treatment of a presumed asthma exacerbation and she was given DuoNeb and treated empirically with Zosyn given her temperature she measured at home. The patient did not have leukocytosis when she arrived and did have leukopenia the day after admission which resolved by the day of discharge. By the day of discharge, her lung exam improved and has no adventitial sounds, she had O2 saturations above 93% on room air as well as ambulation and she was no longer feeling dyspneic at exertion or at rest, though she did continue to shay an non- productive cough. Due to the nonproductive nature of her cough, a sputum culture was never able to be collected. Her home inhaler was continued while she is in the hospital as well. On the day of discharge, the patient tells me that she has had chest heaviness, which has been ongoing for the entirety of her hospital stay, and that was worse prior and now improving. She had a negative troponin on admission as well as EKG without any ischemic changes since this is likely musculoskeletal related to her frequent coughing. PHYSICAL EXAMINATION ON DAY OF DISCHARGE: General: Obese elderly white female , sitting in hospital chair, appearing comfortable, in no acute distress. Eyes : PERRL, sclerae anicteric. Lungs: Clear to auscultation throughout. Cardio: Regular rate and rhythm without murmurs, rubs, or gallops. Tenderness to palpation in the anterior chest along the sternal border approximately third to fourth ICS bilaterally towards medial pectoralis. Abdomen: Soft, nontender, and nondistended. Extremities: No clubbing, cyanosis or edema. Neuro: The patient is alert and oriented x3. No focal deficits. Skin: Warm, dry and intact. DISCHARGE PLAN: Diet: Regular unrestricted diet. Activities: The patient may return to normal activities as tolerated. DISCHARGE INSTRUCTIONS: The patient is to follow up with her primary care provider this week. It appears that she had PFTs with a news editor about a year ago which did not demonstrate COPD and reportedly demonstrated asthma; however, I was not able to obtain the actual PFTs, it is on the written report from this provider. The patient would benefit from followup with a news editor and I would refer her to Dr. Kemp. She additionally may benefit from allergy testing. She has chronic cough which has been ongoing for 2 years and she did tell me that it helped when she started PPI, perhaps if other etiologies of her chronic cough are unclear, then endoscopy would be reasonable. I did provide her with a work excuse while she is for her hospitalization and I advised her to please return emergency department should she experience any shortness of breath that is not resolved by her rescue inhaler or albuterol nebulizers, chest pain, fever, chills. I decided to prescribe this patient antibiotics on the possibility that she may be presenting with acute bacterial bronchitis, especially considering her fever at home prior to presentation. DISCHARGE MEDICATIONS: New medications: 1. Tylenol 650 mg p.o. q.4 hours p.r.n. pain or fever. 2. Ibuprofen 600 mg p.o. q.6 hours p.r.n. pain. 3. Doxycycline 100 mg p.o. b.i.d. x7 days. 4. Cefdinir 300 mg p.o. b.i.d. x5 days. 5. Codeine/guaifenesin 10/100 mg per 5 mL 10 mL p.o. q.4 hours p.r.n. cough. Maximum daily dose 60 mL. 6. Prednisone 60 mg p.o. daily x3 days. Continued home medications: 1. Albuterol nebulized solution 2.5 mg inhaled q.4 hours p.r.n. shortness of breath. 2. Albuterol inhaler 1 to 2 puffs inhaled q.6 hours p.r.n. shortness of breath or wheezing. 3. Symbicort 80/4.5 two puffs inhaled b.i.d. 4. Refresh Liquigel 1 drop to both eyes at bedtime. 5. Cardiotrophin 2 tabs p.o. a.c. 6. Cataplex B 2 tabs p.o. a.c.. 7. Cataplex F 2 tabs p.o. with breakfast, 1 tab at lunch and dinner. 8. Chlorthalidone 25 mg p.o. daily. 9. Magnesium lactate 1 tab p.o. t.i.d. 10. Min-Chex 2 tabs p.o. a.c. 11. Singulair 10 mg p.o. daily. 12. [place]-3 1300 mg p.o. t.i.d. 13. Omeprazole 20 mg p.o. daily. 14. Pneumotrophin 1 tablet p.o. 4 times a day. 15. Magnesium chloride 20 mEq p.o. daily. 16. Zypan 1 tab p.o. a.c. 17. Vicks DayQuil LiquiCaps 1 tab p.o. daily. 18. Vicks NyQuil LiquiCaps 1 cap p.o. q.p.m. CONDITION ON DISCHARGE: Stable. DISPOSITION: Home. TIME SPENT: Approximately 45 minutes was spent on this discharge, approximately half this time was spent at bedside evaluating the patient and discussing the plan of care. JORGE FREEDMAN [id number]/CPS #: [id number] MTDD
== END 2019-04-03 15:45 | disposition home or self-care (01) | DRG 141 ==
LOC: ED 17:51 → MED 21:44
PROVIDERS: ADMIT Internal Medicine; ATTEND Internal Medicine
DX: J45.901 Unspecified asthma with (acute) exacerbation (principal); J96.01 Acute respiratory failure with hypoxia; Z68.41 Body mass index [BMI] 40.0-44.9, adult; E78.5 Hyperlipidemia, unspecified; I10 Essential (primary) hypertension; K21.9 Gastro-esophageal reflux disease without esophagitis; E53.8 Deficiency of other specified B group vitamins; G47.00 Insomnia, unspecified; D72.819 Decreased white blood cell count, unspecified; E66.9 Obesity, unspecified; Z96.653 Presence of artificial knee joint, bilateral; Z79.51 Long term (current) use of inhaled steroids; Z79.899 Other long term (current) drug therapy; Z88.1 Allergy status to other antibiotic agents; Z88.8 Allergy status to other drugs, medicaments and biological substances; Z91.018 Allergy to other foods; Z82.49 Family history of ischemic heart disease and other diseases of the circulatory system; Z80.1 Family history of malignant neoplasm of trachea, bronchus and lung; Z87.891 Personal history of nicotine dependence
CPT/HCPCS: 36415; 71046; 80048; 80053; 81003; 81015; 82553; 82803; 83605; 83880; 84484; 85025; 85730; 86140; 87040; 87077; 87150; 87205; 93005; 94640; 96374; 96375; 99284; A9270-GY; J2543; J2920; J2930; J3475; J7512